=== PATIENT | male | born 1945 | race Caucasian/White ===

== ENCOUNTER 2018-02-10 10:25 | Outpatient (REF) | payer MEDICARE, OTHER, SELFPAY ==
[2018-02-10 12:17] LABS: Anion Gap 6.9 mmol/L (3-11); BUN 23 mg/dL (7-18); CO2 30.1 mmol/L (21.0-32.0); CREATININE 1.48 mg/dL (0.70-1.30); Calcium 8.6 mg/dL (8.5-10.1); Chloride 103 mmol/L (98-107); Estimated GFR 46.46 (mL/min/1.73m2); Glucose 178 mg/dL (70-100); Sodium 140 mmol/L (136-145)
== END 2018-02-10 10:45 ==
LOC: NCHCN 10:25
PROVIDERS: PCP Internal Medicine; Visit Provider Internal Medicine
DX: I10 Essential (primary) hypertension (principal)
CPT/HCPCS: 80048

== ENCOUNTER 2018-02-13 00:57 | Outpatient (CLI) | payer MEDICARE, OTHER, SELFPAY ==
--- NOTE | 2018-02-13 08:00 | DI.CT_ITS ---
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 The study was conducted according to the usual protocol with an intravenous administration of 100 cc's of Omnipaque 350. There is calcific plaque involving the distal common carotid artery, carotid bulb and takeoff of the internal carotid artery bilaterally. On this examination, there is no CT evidence of a significant obstruction. 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 As visualized, the vertebral basilar system is intact and reveals similar findings on today's CTA of the neck. Although there is no definite interval change in the patient's status, a MRA of the brain is suggested for comparison with the prior study which was performed at [facility].
[2018-02-13] MEDS: Omnipaque 350 MG/ML 100 ML BTL IJ (08:58)
== END 2018-02-13 01:17 ==
PROVIDERS: PCP Internal Medicine; Visit Provider Internal Medicine
DX: I72.0 Aneurysm of carotid artery (principal)
CPT/HCPCS: 70498; J3490

== ENCOUNTER 2018-05-05 14:21 | Outpatient (REF) | payer MEDICARE, OTHER, SELFPAY ==
[2018-05-05 22:45] LABS: CREATININE 1.65 mg/dL (0.70-1.30); Estimated GFR 40.98 (mL/min/1.73m2); TSH 3.35 uIU/mL (0.358-3.74)
== END 2018-05-05 14:41 ==
LOC: NCHCN 14:21
PROVIDERS: PCP Internal Medicine; Visit Provider Internal Medicine
DX: E11.65 Type 2 diabetes mellitus with hyperglycemia (principal); I50.9 Heart failure, unspecified; I48.91 Unspecified atrial fibrillation; I25.10 Atherosclerotic heart disease of native coronary artery without angina pectoris; E03.9 Hypothyroidism, unspecified; I71.4 Abdominal aortic aneurysm, without rupture; I72.3 Aneurysm of iliac artery
CPT/HCPCS: 82565; 84443

== ENCOUNTER 2018-08-01 07:24 | Day surgery (SDC) | payer MEDICARE, OTHER, SELFPAY ==
[2018-08-01 07:53] VITALS: BP 144/108; PULSE 70; RESP 16; TEMP 35.1; O2SAT 100
[2018-08-01] MEDS: Lactated Ringers 1,000 ML 80 ML IV (08:06)
[2018-08-01] MEDS: CLINDAMYCIN 600 MG/50 ML BAG 100 MG IVPB (08:57)
[2018-08-01] MEDS: Bupivacaine 0.5% Pres-Free 30 ML VIAL (09:14)
[2018-08-01] MEDS: Lidocaine 1% Pres-Free 5 ML VIAL (09:14)
--- NOTE | 2018-08-01 09:46 | W.PM.DSUDISC ---
Discharge Plan Disposition Patient Disposition: HOME Condition: Good Discharge Details Reason For Visit: surgery Attending Provider: Jarred Trujillo Primary Care Provider: William Herrera Home Meds and New Rx's Prescriptions: No Action atorvastatin [Lipitor] 20 MG tablet 40 mg PO DAILY RF: 0 lisinopril 20 MG tablet 20 mg PO DAILY RF: 0 levothyroxine 50 MCG tablet 50 mcg PO DAILY RF: 0 fenofibrate nanocrystallized 48 MG tablet 48 mg PO BID RF: 0 aspirin 81 MG tablet,delayed release (DR/EC) 81 mg PO DAILY RF: 0 metoprolol tartrate 25 MG tablet 25 mg PO BID Qty: 60 RF: 0 Eliquis 5 mg Tablet 5 mg PO BID RF: 0 Humalog U-100 Insulin 100 UNIT/ML cartridge 20 unit subcut BID RF: 0 Lantus Solostar U-100 Insulin 100 UNIT/1 ML insulin pen 60 units SQ HS RF: 0 warfarin 1 MG tablet 5 mg PO DIRECTED Qty: 0 RF: 0 oseltamivir [Tamiflu] 75 MG capsule 75 mg PO BID Qty: 10 RF: 0 Discharge Instructions Activity:: Activity as Tolerated Remove Dressings/Wound Care:: Do Not Remove Shower/Bathe:: Cover Diet:: Normal Diet Discharge Orders Discharge Orders: Discharge Order (Routine); Ordered 08/01/18 Ordered By: Jarred Trujillo DS: Diagnosis Discharge Diagnosis (1) Hammertoe of right foot: Status: Acute
[2018-08-01 10:18] VITALS: BP 114/59; PULSE 54; RESP 18; TEMP 35.9; O2SAT 94
--- NOTE | 2018-08-01 12:36 | ROE_ITS ---
REPORT OF OPERATIVE PROCEDURE DATE OF PROCEDURE August 01, 2018 PREOPERATIVE DIAGNOSES Hammertoe deformities right fourth and fifth toes with ulcerated soft corn. POSTOPERATIVE DIAGNOSES Hammertoe deformities right fourth and fifth toes with ulcerated soft corn. PROCEDURE Arthroplasty of the right fourth and fifth toes. ANESTHESIA General Anesthesia with local blockade of the right fourth and fifth toes. 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 He is being brought to the Operating Room for arthroplasty o f the fourth and fifth right digits. The potential for pain, scarring, infection, wound dehiscence, o ngoing infection and ulceration discussed, potential for revisional procedures were reviewed. All que stions have been answered and informed consent has been obtained. REPORT OF OPERATION The patient was brought to the Operative Suite, placed in the supine position. Right foot was prepped and draped in the usual sterile podiatric fashion. Anesthesia being obtained, the right foot was exs anguinated. A well-padded ankle tourniquet inflated 250 mmHg. Attention was directed to the dorsal a spect of the fourth and fifth toes. Two converging semielliptical incisions were placed centrally ove r each toe centered over the respective PIPJ. The skin wedges were removed from the fourth toe and th en the fifth toe. Soft tissue mobilization was performed. Transverse tenotomy capsulotomies were then performed at the PIPJ level and the medial and lateral collaterals released, the identical procedure being performed at the fifth digit. The fourth proximal phalangeal head was delivered into the wound and resected with Double Action bone cutting forceps. The identical maneuver performed to the fifth toe. All roughened bony edges were rasped smooth. Copious irrigation was performed. Good bony resec tion was appreciated. The fourth and the fifth toes appeared relaxed. There was no purulence identifi ed. No signs of infection in either toe. The extensor tendons were repaired end-to-end with simple in terrupted sutures of #3-0 Vicryl fourth and fifth toes simultaneously. Then the skin was closed with simple interrupted suture #4-0 Nylon. Betadine soaked gauze was then applied to the plantar and dors al aspect of the fourth toe to act as a splint. Xeroform, gauze, fluff compression dressings then rachel lied to the fifth toe. Tourniquet was released at approximately 24 minutes with vascularity returning immediately to all toes. The patient left the OR with vital signs stable, vascular status intact. Efren guzman will be followed by myself in the office next week. CC: William Herrera M.D.
== END 2018-08-01 10:56 | disposition home or self-care (01) ==
PROVIDERS: PCP Internal Medicine; Visit Provider Podiatrist
PROC: (CPT 28285; principal; 2018-08-01 08:30)
DX: M20.41 Other hammer toe(s) (acquired), right foot (principal); E11.22 Type 2 diabetes mellitus with diabetic chronic kidney disease; E11.42 Type 2 diabetes mellitus with diabetic polyneuropathy; I12.9 Hypertensive chronic kidney disease with stage 1 through stage 4 chronic kidney disease, or unspecified chronic kidney disease; N18.9 Chronic kidney disease, unspecified
CPT/HCPCS: 28285; J1885; J2405

== ENCOUNTER 2018-08-04 09:21 | Inpatient (IN) | payer MEDICARE, OTHER, SELFPAY ==
[2018-08-04 09:24] VITALS: BP 189/73; PULSE 78; RESP 18; TEMP 37.1; O2SAT 97
--- NOTE | 2018-08-04 09:49 | DI.RAD_ITS ---
SYMPTOMS/DIAGNOSIS: H/O RT 4TH AND 5TH TOE ARTHROPLASTY, CELLULITIS, ? OSTEOMYELITIS RIGHT FOOT: Three views. Comparison is 12/02/12. Since the prior examination, the patient has undergone arthroplasty involving the right 4th and 5th proximal interphalangeal joints. There is slight medial angulation of the residual proximal phalanx of the right 5th toe and a dislocation can not be excluded. Correlation with prior post surgical films is recommended. No acute osseous fracture or dislocation is seen. There are mild degenerative changes seen in the right foot. Extensive vascular calcifications are seen in the soft tissues. IMPRESSION: Post surgical changes seen at the 4th and 5th toes as described above. Question of an alignment abnormality involving the right 5th toe as described. Please correlate with patient post surgical images. ADDENDUM: The findings were discussed with Dr. Marsh. The patient is status post arthroplasty of the right 4th and 5th toes. The surgery occurred within the last week. There are no post procedural films available. No findings to suggest osteomyelitis are present. Alignment may be within normal limits post surgically. Continued monitoring of the right foot is recommended.
--- NOTE | 2018-08-04 10:07 | W.ED.GENAD ---
Discharge Plan Disposition Patient Disposition: [facility] INPATIENT Condition: Stable Discharge Details Chief Complaint: Cellulitis Clinical Impression: Cellulitis of right foot, Hx of arthroplasty, History of diabetes mellitus Reason For Visit: R FOOT CELLULITIS, S/P TOE ARHROPLASTY, H/O DIABET Admit Date/Time: 08/04/18 14:07 Admit Provider: William Herrera Attending Provider: William Herrera Primary Care Provider: William Herrera ED Provider: Priscila Marsh Discharge Data Discharge Date/Time-TO BE ENTERED AT DEPARTURE: 08/04/18 13:15 Medical Decision Making 73-year-old male with history of diabetes who is 3 days status post right fourth and fifth toe arthroplasty with Dr. Trujillo who presents with right foot cellulitis. Patient is unsure of how long due to bandage on foot, but admits to chills yesterday. Fever per Dr. Trujillo in office today. Sent by Dr. Montaño today for admission for IV antibiotics. Vitals stable on arrival. Afebrile. Patient appears nontoxic. He has right foot cellulitis on the dorsal mid and distal foot with ecchymosis and cellulitis on the right fourth and fifth toes. Right DP/PT pulses intact. Labs and imaging ordered on arrival and note a white blood cell count of 10, lactate of 1.3. X-ray noted postsurgical changes but no osteomyelitis. 1145 --discussed with Dr. Trujillo -would like IV Vancomycin and cefepime. 1155 --d/w hospitalist - accepts pt for admission. Medical Records Medical records reviewed: Yes I reviewed the patient's medical records. Imaging Data Radiologic Study: Radiologist's impression: RIGHT FOOT: Three views. Comparison is 12/02/12. Since the prior examination, the patient has undergone arthroplasty involving the right 4th and 5th proximal interphalangeal joints. There is slight medial angulation of the residual proximal phalanx of the right 5th toe and a dislocation can not be excluded. Correlation with prior post surgical films is recommended. No acute osseous fracture or dislocation is seen. There are mild degenerative changes seen in the right foot. Extensive vascular calcifications are seen in the soft tissues. IMPRESSION: Post surgical changes seen at the 4th and 5th toes as described above. Question of an alignment abnormality involving the right 5th toe as described. Please correlate with patient post surgical images. ADDENDUM: The findings were discussed with Dr. Marsh. The patient is status post arthroplasty of the right 4th and 5th toes. The surgery occurred within the last week. There are no post procedural films available. No findings to suggest osteomyelitis are present. Alignment may be within normal limits post surgically. Continued monitoring of the right foot is recommended. Lab Data Lab results reviewed: Yes I reviewed the patient's lab results. 08/04/18 10:30 Blood Blood Culture - Pending 08/04/18 09:50 Blood Blood Culture - Pending Laboratory Tests Range/Units 08/04/18 08/04/18 08/04/18 09:50 09:50 09:50 WBC (4.4-10.8) k/cumm 10.46 RBC (4.50-6.00) m/cumm 4.19 L Hgb (13.5-17.5) g/dL 12.0 L Hct (40.0-50.0) % 34.8 L MCV (80-95) fL 83.1 MCH (27.0-33.0) pg 28.6 MCHC (32.0-36.0) g/dL 34.5 RDW (11.8-14.1) % 14.1 Plt Count (130-400) x1000/uL 116 L MPV (8.0-11.0) fL 10.3 Immature Gran % 0.3 Neutrophils % 75.4 Lymphocytes % 12.7 Monocytes % 10.3 Eosinophils % 1.1 Basophils % 0.2 Absolute Neutrophils (1.2-6.7) k/cumm 7.89 H Absolute Lymphocytes (1.2-3.4) k/cumm 1.33 Absolute Monocytes (0.11-0.7) k/cumm 1.08 H Absolute Eosinophils (0.0-0.7) k/cumm 0.11 Absolute Basophils (0.0-0.2) k/cumm 0.02 Sodium (136-145) mmol/L 136 Potassium (3.5-5.1) mmol/L 4.4 Chloride (98-107) mmol/L 100 Carbon Dioxide (21.0-32.0) mmol/L 26.0 Anion Gap (3-11) mmol/L 10.0 BUN (7-18) mg/dL 21 H Creatinine (0.70-1.30) mg/dL 1.50 H Estimated GFR/1.73 m2 (mL/min/1.73m2) 45.75 Glucose (70-100) mg/dL 194 H Lactate (0.6-1.4) mmol/l 1.3 Calcium (8.5-10.1) mg/dL 8.6 Total Bilirubin (0.2-1.0) mg/dL 1.0 AST (15-37) U/L 20 ALT (12-78) U/L 19 Alkaline Phosphatase (46-116) U/L 115 Total Protein (6.4-8.2) g/dL 7.2 Albumin (3.4-5.0) g/dL 3.2 L HPI General Mode of arrival: ambulatory. Date/Time Provider Initiated Documentation: 08/04/18 09:29. Limitations to Documentation: no limitations. Information obtained by: patient. HPI Narrative: Patient is a 73-year-old male with a history of diabetes, atrial fibrillation, CABG, CAD, peripheral vascular disease who presents for admission for IV antibiotics for right foot cellulitis. Patient is 3 days status post a right fourth and fifth toe arthroplasty with Dr. Trujillo 3 days ago. Patient was seen by Dr. Trujillo today for re-evaluation and he sent patient here today to the ER for IV antibiotics and admission. Per nursing report in the ED from Dr. Trujillo, pt had a fever in the office with him today. Pt c/o shaking chills at home yesterday. Patient states he has had the dressing on since his surgery on Saturday and is unsure of how long he has had the redness. He states his sugars have been running in the 200s. Related Data Home Medications Medication Instructions Recorded Confirmed aspirin 81 mg PO DAILY 11/08/12 08/04/18 atorvastatin [Lipitor] 40 mg PO DAILY 11/08/12 08/04/18 levothyroxine 50 mcg PO DAILY 11/08/12 08/04/18 metoprolol tartrate 25 mg PO BID #60 tab 01/02/13 08/04/18 oseltamivir [Tamiflu] 75 mg PO BID #10 cap 06/11/16 Humalog U-100 Insulin 20 unit SUBCUT BID 07/29/18 08/04/18 Lantus Solostar U-100 Insulin 60 units SQ HS 07/29/18 08/04/18 apixaban [Eliquis] 5 mg PO BID 07/29/18 08/04/18 ibuprofen 600 mg PO QID 08/04/18 08/04/18 lisinopril 30 mg PO DAILY 08/04/18 08/04/18 Previous Rx's Medication Instructions Recorded metoprolol tartrate 25 mg PO BID #60 tab 01/02/13 oseltamivir [Tamiflu] 75 mg PO BID #10 cap 06/11/16 Allergies Allergy/AdvReac Type Severity Reaction Status Date / Time amoxicillin trihydrate Allergy Intermediate Hives Unverified 08/01/18 07:45 [From Augmentin] simvastatin Allergy Unknown Unverified 08/01/18 07:45 [From Vytorin 10-10] General Stated Complaint: Cellulitis MELISSA: 3 Review of Systems Review of Systems All systems reviewed & are unremarkable except as noted in HPI and below Constitutional Reports as per HPI, Reports chills and Denies fever(s) Eyes Denies blurry vision ENT Denies dizziness, Denies sore throat and Denies throat swelling Cardiovascular Denies chest pain and Denies dyspnea Respiratory Denies cough and Denies dyspnea Gastrointestinal Denies abdominal pain, Denies diarrhea and Denies vomiting Genitourinary Denies hematuria and Denies dysuria Musculoskeletal Denies back pain and Denies numbness Integumentary/Breasts Reports lesions and Denies rash Neurologic Denies dizziness, Denies focal weakness and Denies numbness Allergic/Immunologic Denies throat swelling [facility] Medical History Hyperlipemia (Acute) Atrial fibrillation (Chronic) Coronary artery disease (Chronic) Diabetes (Chronic) Hypothyroidism (Chronic) Peripheral vascular disease (Chronic) Surgical History Appendectomy Colonoscopy - [facility] (05/25/16) Coronary Artery Bypass [place] (CABG) Social History Smoking and Tabacco status: Former Tobacco Use alcohol intake: current alcohol intake frequency: 0-2 drinks per day substance use type: does not use Exam Const General: cooperative and no acute distress HENMT Head: normal to inspection Face and sinus: normal facial exam Eyes General: appearance normal, both eyes and all related structures EOM: EOM intact bilaterally Neck Neck: normal visual inspection and No submandibular swelling Resp Effort & Inspection: normal respiratory effort and able to speak in complete sentences Auscultation: clear to auscultation bilaterally Cardio Rate: regular rate Rhythm: regular rhythm GI Inspection: normal to inspection and obesity Palpation: soft, not firm, not rigid and nontender Auscultation: normal bowel sounds Neuro General: alert, awake and oriented x3 Cognition: normal cognition Speech: speech normal Motor: muscle tone normal throughout Sensory Exam: no sensory deficits noted Extrem Other: Right foot: Mild edema and moderate erythema noted on dorsal mid and distal foot with extension into right fourth and fifth toes with surrounding ecchymosis to toes. Sutures noted in place to R 4th/5th toes. Faint palpable right DP/PT pulses. Right ankle normal to inspection. Psych Appearance: grossly normal Mental Status: mental status grossly normal Speech and Movement: speech and movement normal Affect: normal affect Course Vital Signs Temperature 98.8 F 08/04/18 09:24 Pulse 78 08/04/18 09:24 Respiratory Rate 18 08/04/18 09:24 Blood Pressure 189/73 H 08/04/18 09:24 Pulse Oximetry 97 08/04/18 09:24 Temperature 98.8 F 08/04/18 09:24 Temperature Source Skin 08/04/18 09:24 Pulse 78 08/04/18 09:24 Respiratory Rate 18 08/04/18 09:24 Respiratory Effort 08/04/18 09:33 Blood Pressure 189/73 H 08/04/18 09:24 Blood Pressure Position Sitting 08/04/18 09:24 Pulse Oximetry 97 08/04/18 09:24 Oxygen Delivery Method Room Air 08/04/18 09:24 Oxygen Flow Rate 0 08/04/18 09:24 Pain Level 0 08/04/18 09:24 Lab/Test Results Lab/Test Results: 08/04/18 09:29 Blood Blood Culture - Pending 08/04/18 09:29 Blood Blood Culture - Pending
[2018-08-04 10:20] LABS: Abs Immature Grans 0.03 k/cumm (0.0-0.09); Absolute Basophil Count 0.02 k/cumm (0.0-0.2); Absolute Eosinophil Count 0.11 k/cumm (0.0-0.7); Absolute Lymphocyte Count 1.33 k/cumm (1.2-3.4); Absolute Monocyte Count 1.08 k/cumm (0.11-0.7); Absolute Neutrophil Count 7.89 k/cumm (1.2-6.7); Basophils % 0.2; Eosinophils % 1.1; HCT 34.8 % (40.0-50.0); Immature Grans % 0.3; Lymphocytes % 12.7; Mean Corp. HGB Concentration 34.5 g/dL (32.0-36.0); Mean Corpuscular Hemoglobin 28.6 pg (27.0-33.0); Mean Corpuscular Volume 83.1 fL (80-95); Mean Platelet Volume 10.3 fL (8.0-11.0); Monocytes % 10.3; Neutrophils % 75.4; Platelet Count 116 x1000/uL (130-400); RBC 4.19 m/cumm (4.50-6.00); RBC Distribution Width 14.1 % (11.8-14.1); White Blood Cell Count 10.46 k/cumm (4.4-10.8)
[2018-08-04 10:25] LABS: Lactate-non-spesis 1.3 mmol/l (0.6-1.4)
[2018-08-04] MEDS: Normal Saline 1,000 ML 125 ML IV ×3 (10:50→21:54)
[2018-08-04 11:26] LABS: ALT 19 U/L (12-78); AST 20 U/L (15-37); Albumin 3.2 g/dL (3.4-5.0); Alkaline Phosphatase 115 U/L (46-116); BUN 21 mg/dL (7-18); Calcium 8.6 mg/dL (8.5-10.1); Chloride 100 mmol/L (98-107); Estimated GFR 45.75 (mL/min/1.73m2); Glucose 194 mg/dL (70-100); Potassium 4.4 mmol/L (3.5-5.1); Sodium 136 mmol/L (136-145); Total Protein 7.2 g/dL (6.4-8.2)
[2018-08-04] MEDS: CEFEPIME 2 GM in Normal Saline 100 ML IVPB (11:45)
[2018-08-04 11:56] VITALS: BP 122/63; PULSE 78; RESP 18; TEMP 37.4; O2SAT 95
[2018-08-04] MEDS: VANCOMYCIN 1,500 MG in Normal Saline 250 ML 250 MG IV (12:10)
[2018-08-04 13:15] VITALS: BP 152/88; PULSE 77; RESP 20; TEMP 36.5; O2SAT 95
[2018-08-04 13:21] VITALS: BP 122/63; PULSE 78; RESP 18; TEMP 37.4; O2SAT 95
--- NOTE | 2018-08-04 14:31 | W.PM.HP.N ---
Date of service: 08/04/18 Time of Service: 14:42 Assessment and Plan (1) Cellulitis of right foot: Current visit: Yes Status: Acute Postop wound infection with systemic symptoms but minimal signs. Wound care per Dr. Trujillo. Superficial cultures will not be helpful. Blood cultures have been drawn. Empiric treatment with vancomycin and cefepime renally dosed. Monitor clinical response. 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 Circulation in his foot seems to be adequate for infection healing. (3) Coronary arteriosclerosis: Current visit: No Status: Chronic No anginal symptoms on secondary preventive medications, continue outpatient regimen. (4) Diabetes mellitus type 2: Current visit: Yes Status: Chronic Not well controlled, dietary compliance a problem and he does not like to take meal associated aspart insulin very often. He has not had problems with hypoglycemia. We will continue his outpatient Lantus, use 10 units rather than 20 units of aspart plus moderate sensitivity correction before meals as he will be on an reinforced diet and will monitor blood sugar response. (5) Hypothyroidism: Current visit: Yes Status: Chronic TSH in April with an population normal on his current dose, no changes planned. (6) Chronic kidney disease stage 1: Current visit: Yes Status: Chronic BUN and creatinine at baseline. Renally dose medications. (7) Atrial fibrillation: Current visit: Yes Status: Chronic Controlled ventricular response. Anticoagulated with apixaban. No changes planned. (8) Left heart failure with preserved LV function: Current visit: Yes Status: Chronic Compensated on outpatient medications, slight increase in edema. Continue his current dose of furosemide with low threshold to increase this if weight or edema go up. (9) Central retinal artery occlusion, right eye: Current visit: Yes Status: Chronic Functional vision right eye. Continue his outpatient eyedrops. History of Present Illness Chief Complaint: Increasing right foot pain and swelling Narrative: Mr. Stapleton is a 73-year-old man with diabetes that has not been well controlled, presenting to the emergency room from Dr. Simmons office because of right foot cellulitis. He had surgery last Saturday on his fourth and fifth toes because of deformities causing chronic skin ulcerations. Over the weekend he noted some increased swelling of his right leg and increasing discomfort of his foot in the past 24 hours. He was seen for routine postop follow-up today where it was noted to have increased erythema on the dorsum of his right foot and toes with some dusky discoloration of his right fifth toe. He was sent to the emergency room for admission following blood cultures and administration of vancomycin and cefepime. He is being admitted now for continued antibiotic therapy and monitoring of his postop cellulitis. Prior to his foot surgery he was stable with regard to his cardiovascular status. His diabetes is not well controlled with home blood sugars typically pushing 200 and his last hemoglobin A1c in April of over 8. He does not like to take a short acting insulin more than once a day. He does not follow a optimal diet and is quite sedentary. He has not had any claudication symptoms at his current level of activity nor any anginal chest pain. He reports chronic orthopnea but has not had increased ankle swelling until today, right leg only. No palpitations. He has had a little bit of bleeding from the wound but no excessive bleeding on his chronic anticoagulation. In addition to the medications listed below he is also on at least 2 eyedrops?brimonidine, timolol and possibly Pred Forte, we need to confirm. Review of Systems Review of Systems He has had chills but no measured fever. No nausea. No anginal chest pain. No cough. He has had some wheezing when he lies down but it goes away when he sits up. Sleeps in a recliner out of comfort and perhaps breathing? Not known to have sleep apnea. No palpitations. No abdominal pain. Tendency towards constipation but no blood in stool. No dysuria urgency or frequency. Pain in the dorsum of the right foot as per HPI. No focal weakness numbness or tingling. He has no significant vision in his right eye. No recent falls. No headache. Weight has been stable. [facility] Medical History Hyperlipemia (Acute) Atrial fibrillation (Chronic) Coronary artery disease (Chronic) Diabetes (Chronic) Hypothyroidism (Chronic) Peripheral vascular disease (Chronic) Surgical History Appendectomy Colonoscopy - [facility] [place] (05/25/16) Coronary Artery Bypass [place] (CABG) Social History Smoking and Tabacco status: Former Tobacco Use alcohol intake: current alcohol intake frequency: 0-2 drinks per day substance use type: does not use Meds Home Medications Medication Instructions Recorded Confirmed Type aspirin 81 mg PO DAILY 11/08/12 08/04/18 History atorvastatin [Lipitor] 40 mg PO DAILY 11/08/12 08/04/18 History levothyroxine 50 mcg PO DAILY 11/08/12 08/04/18 History metoprolol tartrate 25 mg PO BID #60 tab 01/02/13 08/04/18 Rx oseltamivir [Tamiflu] 75 mg PO BID #10 cap 06/11/16 Rx Humalog U-100 Insulin 20 unit SUBCUT BID 07/29/18 08/04/18 History Lantus Solostar U-100 Insulin 60 units SQ HS 07/29/18 08/04/18 History apixaban [Eliquis] 5 mg PO BID 07/29/18 08/04/18 History ibuprofen 600 mg PO QID 08/04/18 08/04/18 History lisinopril 30 mg PO DAILY 08/04/18 08/04/18 History Allergies Allergy/AdvReac Type Severity Reaction Status Date / Time amoxicillin trihydrate Allergy Intermediate Hives Unverified 08/01/18 07:45 [From Augmentin] simvastatin Allergy Unknown Unverified 08/01/18 07:45 [From Vytorin 10-10] Exam Narrative Exam Narrative: In bed, awake alert and in no apparent distress. Pupils are 2 mm and equal. Extraocular movements are normal. He has dentures up and down with no oral lesions. Cannot see neck veins because of neck size. No carotid bruits. Lungs have intermittent very soft late expiratory wheeze at the bases, no crackles or rub. Irregularly irregular heart rhythm without S3-S4 or murmur. Abdomen obese soft nontender. No masses appreciated. He has 1+ edema left leg 2-3+ on the right with chronic pigmentary changes on his shins. His right fourth and fifth toe have intact suture lines on the dorsum of the toes with erythema and swelling and bruising of the right fifth toe. His feet are warm. There is erythema extending to just before the flexural crease of the dorsum of his right foot at the ankle. Mild induration mild warmth minimal tenderness. Difficult to feel a pulse in the right foot but his foot is warm. Absent DTRs at the knees 1+ at the elbows. He has antigravity power present in all extremities. Oriented x4. X-ray of the right foot shows his recent postsurgical changes and calcifications of the vasculature in the right foot. Results Labs : 08/04/18 09:50 08/04/18 09:50 Laboratory Results - last 24 hr 08/04/18 08/04/18 08/04/18 09:50 09:50 09:50 WBC 10.46 RBC 4.19 L Hgb 12.0 L Hct 34.8 L MCV 83.1 MCH 28.6 MCHC 34.5 RDW 14.1 Plt Count 116 L MPV 10.3 Immature Gran % 0.3 Neutrophils % 75.4 Lymphocytes % 12.7 Monocytes % 10.3 Eosinophils % 1.1 Basophils % 0.2 Absolute Neutrophils 7.89 H Absolute Lymphocytes 1.33 Absolute Monocytes 1.08 H Absolute Eosinophils 0.11 Absolute Basophils 0.02 Sodium 136 Potassium 4.4 Chloride 100 Carbon Dioxide 26.0 Anion Gap 10.0 BUN 21 H Creatinine 1.50 H Estimated GFR/1.73 m2 45.75 Glucose 194 H Lactate 1.3 Calcium 8.6 Total Bilirubin 1.0 AST 20 ALT 19 Alkaline Phosphatase 115 Total Protein 7.2 Albumin 3.2 L Last Vital Signs Temp 37.4 C 08/04/18 13:21 Pulse 78 08/04/18 13:21 Resp 18 08/04/18 13:21 BP 122/63 08/04/18 13:21 Pulse Ox 95 08/04/18 13:21
[2018-08-04 16:18] VITALS: BP 114/57; PULSE 76; RESP 19; TEMP 37.1; O2SAT 96
[2018-08-04] MEDS: HYDROcodone 5/Acetaminophen 325 TAB PO (16:35)
[2018-08-04] MEDS: Insulin Aspart 300 UNITS/3 ML PEN SC (17:12)
[2018-08-04] MEDS: Insulin Aspart 300 UNITS/3 ML PEN 10 UNITS SC (17:12)
--- NOTE | 2018-08-04 18:12 | POCOE_ITS ---
Date of service: 08/04/18 Time of Service: 18:03 History of Present Illness Chief Complaint: Postop infection right fourth fifth toes with cellulitis Narrative: Nick, 73-year-old white male, with diabetes and peripheral vascular disease underwent arthroplasties of the right fourth and fifth digits on 08/01/2018. He has been suffering with ulceration between the fourth and fifth toes and chronic pain. The ulceration showed signs of resolving and surgical intervention was employed to prevent recurrence of wounds and to correct the digital deformities, hammertoes which predisposed him to the ulcerations. Surgical procedures went uneventful but unfortunately over the weekend he developed pain and a general feeling of achiness, he describes fever and chills verbally when he was in the office this morning. When the dressings were removed the fourth and fifth toes were grossly erythematous with cellulitis noted extending onto the dorsum of the foot. The fifth toe appeared a little dusky with delayed capillary return. There was no purulence coming from the suture lines. Patient was sent to the emergency department for purpose of facilitating a dmission. Blood cultures and labs were performed. He is now seen on the floor in room 217 where he is resting comfortably. [facility] Medical History Abdominal aortic aneurysm (Chronic) Peripheral arterial disease (Chronic) Central retinal artery occlusion, right eye (Chronic) Left heart failure with preserved LV function (Chronic) Chronic kidney disease stage 1 (Chronic) Atrial fibrillation (Chronic 12/28/12) Hypothyroidism (Chronic) Hyperlipemia (Acute) Atrial fibrillation (Chronic) Coronary artery disease (Chronic) Diabetes (Chronic) Hypothyroidism (Chronic) Peripheral vascular disease (Chronic) Surgical History Appendectomy Colonoscopy - MAC (05/25/16) Coronary Artery Bypass G[place] (CABG) Social History Smoking and Tabacco status: Former Tobacco Use alcohol intake: current alcohol intake frequency: 0-2 drinks per day substance use type: does not use Exam Narrative Exam Narrative: Patient is seen at bedside he is awake alert, conversive and in fairly good spirits. His is present. His feet are warm to the touch, no peripheral edema or is noted. Calves are soft to palpation. Pulses are diminished but palpable. Capillary return is sluggish on the fifth toe on the fourth second to the fourth digit all to the right foot Suture line is intact without drainage. The digits are rectus Vitals BP 114/57 pulse 76 respiration 19 temp 37.1 O2 sat room air is 96% WBCs are normal at 10.46 RBCs are low at 4.19 hemoglobin is 12.0 hematocrit 348, BUNs 21 creatinine 1.5. Impression 72 hours status post arthroplasty right fourth and fifth digit digits with postop infection there is no purulence to culture at this time and superficial swabbing of the suture line would be unreliable Continue with vancomycin renally adjusted currently at 1 g every 12 hour, cefepime 2 g IV every 12 hours Appreciate the hospitalist management will continue to follow. Results Last Vital Signs Temp 37.1 C 08/04/18 16:18 Pulse 76 08/04/18 16:18 Resp 19 08/04/18 16:18 BP 114/57 L 08/04/18 16:18 Pulse Ox 96 08/04/18 16:18 Labs : 08/04/18 09:50 08/04/18 09:50 Laboratory Results - last 24 hr 08/04/18 08/04/18 08/04/18 09:50 09:50 09:50 WBC 10.46 RBC 4.19 L Hgb 12.0 L Hct 34.8 L MCV 83.1 MCH 28.6 MCHC 34.5 RDW 14.1 Plt Count 116 L MPV 10.3 Immature Gran % 0.3 Neutrophils % 75.4 Lymphocytes % 12.7 Monocytes % 10.3 Eosinophils % 1.1 Basophils % 0.2 Absolute Neutrophils 7.89 H Absolute Lymphocytes 1.33 Absolute Monocytes 1.08 H Absolute Eosinophils 0.11 Absolute Basophils 0.02 Sodium 136 Potassium 4.4 Chloride 100 Carbon Dioxide 26.0 Anion Gap 10.0 BUN 21 H Creatinine 1.50 H Estimated GFR/1.73 m2 45.75 Glucose 194 H Lactate 1.3 Calcium 8.6 Total Bilirubin 1.0 AST 20 ALT 19 Alkaline Phosphatase 115 Total Protein 7.2 Albumin 3.2 L
[2018-08-04] MEDS: Metoprolol 25 MG TAB PO (21:33)
[2018-08-04] MEDS: Apixaban 5 MG TAB PO (21:33)
[2018-08-04 21:37] VITALS: BP 135/67; PULSE 72; RESP 16; TEMP 37.3; O2SAT 96
[2018-08-04] MEDS: Timolol 0.5% 5 ML BTL OD (21:42)
[2018-08-04] MEDS: Insulin Glargine 300 UNITS/3 ML PEN 60 UNITS SC (21:48)
[2018-08-04] MEDS: Refresh PLUS Eye Drops 0.4ml OS (21:50)
[2018-08-05] VITALS (7 sets, daily range): BP systolic 138–178; BP diastolic 63–89; PULSE 69–91; RESP 19–22; TEMP 36.6–38.3; O2SAT 96–99
[2018-08-05] MEDS: CEFEPIME 2 GM in Normal Saline 100 ML IVPB ×3 (00:10→23:53)
[2018-08-05] MEDS: HYDROcodone 5/Acetaminophen 325 TAB PO ×2 (00:15→09:53)
[2018-08-05 07:10] LABS: HCT 34.6 % (40.0-50.0); HGB 11.5 g/dL (13.5-17.5); Mean Corp. HGB Concentration 33.2 g/dL (32.0-36.0); Mean Corpuscular Hemoglobin 27.8 pg (27.0-33.0); Mean Corpuscular Volume 83.8 fL (80-95); Mean Platelet Volume 10.4 fL (8.0-11.0); Platelet Count 123 x1000/uL (130-400); RBC 4.13 m/cumm (4.50-6.00); RBC Distribution Width 14.2 % (11.8-14.1); White Blood Cell Count 9.07 k/cumm (4.4-10.8)
[2018-08-05 07:29] LABS: Hemoglobin A1C 8.4 % (4.5-6.2)
[2018-08-05 07:35] LABS: Anion Gap 7.5 mmol/L (3-11); BUN 20 mg/dL (7-18); CO2 27.5 mmol/L (21.0-32.0); CREATININE 1.47 mg/dL (0.70-1.30); Calcium 8.2 mg/dL (8.5-10.1); Chloride 102 mmol/L (98-107); Estimated GFR 46.83 (mL/min/1.73m2); Glucose 197 mg/dL (70-100); Potassium 4.8 mmol/L (3.5-5.1); Sodium 137 mmol/L (136-145)
[2018-08-05] MEDS: Levothyroxine 50 MCG TAB PO (07:35)
[2018-08-05] MEDS: Normal Saline 1,000 ML 125 ML IV (08:09)
[2018-08-05] MEDS: Normal Saline Flush 10 ML SYR IVP ×2 (08:10→23:51)
[2018-08-05] MEDS: Insulin Aspart 300 UNITS/3 ML PEN SC ×2 (08:11→12:15)
[2018-08-05] MEDS: Insulin Aspart 300 UNITS/3 ML PEN 10 UNITS SC ×2 (08:11→12:14)
[2018-08-05] MEDS: Atorvastatin 20 MG TAB 40 MG PO (08:13)
[2018-08-05] MEDS: Aspirin E.C. 81 MG TABEC PO (08:13)
[2018-08-05] MEDS: Lisinopril 10 MG TAB 30 MG PO (08:13)
[2018-08-05] MEDS: Metoprolol 25 MG TAB PO ×2 (08:13→19:54)
[2018-08-05] MEDS: Apixaban 5 MG TAB PO ×2 (08:13→19:54)
[2018-08-05] MEDS: Timolol 0.5% 5 ML BTL OD ×2 (08:14→19:54)
--- NOTE | 2018-08-05 09:18 | PDOC.CMIN ---
- If Service Date Differs Date of service: 08/05/18 Time of Service: 09:18 Care Management Initial Assess REASON FOR HOSPITALIZATION:: R foot cellulitis post arthroplasties of the right 4th and 5th digits on 08/01/18 PAST MEDICAL HISTORY/PAST SURGICAL HISTORY:: Afib, CABG, L sided heart failure, DM, CKD, hypothyroid, tripple A. PREVIOUS FUNCTIONAL STATUS/SOCIAL/FAMILY SUPPORTS:: Pt is a retired over the road building contractor. He lives with his spouse of 54 years Jessie. There children are grown He is indepdent with transportation, and self care. The couple live alone in a trailer and are supportive of each other. They both drive and have no ambulatory aids. CURRENT FUNCTIONAL STATUS:: Nick is having some shortness of breath during CM visit. He feels like he cannot get enough air in. He is being given 20 mg of lasix during assessment by primary nurse. IV fluids have been discountinued. CM reviewed concerns of [facility] primary nurse and CCRN. ADVANCE DIRECTIVES:: On file spouse Jessie Has patient been provided with information about the portal?: Yes Did the patient sign up for the portal?: No CODE STATUS:: Full Code INSURANCE COVERAGE / FINANCIAL ISSUES:: Medicare and CURRENT HOME/COMMUNITY SERVICES/EQUIPMENT:: None PRIMARY CARE PHYSICIAN:: POTENTIAL DISCHARGE NEEDS:: Follow up appointment with Dr. Herrera and Dr. Trujillo PATIENT/FAMILY EDUCATION NEEDS:: Discharge education, limitations and follow up plan of care. ANTICIPATED BARRIERS TO DISCHARGE:: Imparied healing r/t history of DM, PVD. TRANSPORTATION:: Via private car with spouse at time of discharge. PLAN:: Nick is receiving IV antibiotics and continued wound management. Podiatry and hospitalist managing patient. Nick will be discharged home when medically ready. CM to continue to provide support to pt ongoing discharge planning and disposition.
--- NOTE | 2018-08-05 12:23 | PHARADMIT ---
Addendum entered by Zuleima Alex 08/10/18 14:10: Pharmacy Note Subjective pt looked better to MD yesterday Objective bp 175/93, wt down to 131kg, Na 135, Fs 188, trough vanco 15.7 Assessment no changes recommended for vancomycin dosing Plan Md to call ID after Wound Culture results Addendum entered by Mitchell Winchester III 08/08/18 12:15: Pharmacy Note Subjective Post-op toe amputation (gangrenous). would like [facility] [place]. Objective VS-OK Na- 136 K+3.7 SCr- 1.26 H&H-10.2/30.5 Plts-128 wGT- 131.9 kg Assessment Vancomycin continues. Cefepime dc'd. Apixaban re-started Trough 15.4 yesterday. Plan Watch for wound cultures to narrow ABX therapy Addendum entered by Mitchell Winchester III 08/07/18 09:33: Pharmacy Note Subjective Going to OR with for Toe amputation at noon today. Objective BP-176/86 No Labs FSBS-98 BM today Assessment Cefepime, Vancomycin continue, watch for Apixban re-start after surgery Trough will be delayed due to noon surgery. Plan would like patient to transfer to [facility] vascular surgery post-op, if possible. Original Note: Addendum entered by Masha Bentley 08/06/18 16:15: Pharmacy Note Subjective improving per morning report; no significant changes in the wounds per Dr. Trujillo Objective VS-okay SCr-1.35(down) FSBG-150 Assessment -vanco trough came back low but still not at steady state, kinetics suggested keeping same dose to target a trough of 15.3. I reordered trough for tomorrow since should be at steady state -vanco and cefepime continue (day 3) -blood cultures no growth at 48 hours -apixaban set to resume tomorrow evening Plan watch for vanco trough, adjust dosing as needed Original Note: Admission Pharmacy Clinical Review Right FOOT CELLULITIS, S/P- TOE ARTHROPLASTY, H/O DIABETES Code Status Full Code Current Weight Wgt- 134.9 kg Renally Cleared and Narrow Therapeutic Index Meds CrCl~ 52 mL/min Meds-OK QTc Value / Action Taken none current BP Control, Fever BP- 178/89 Tmax- 38.3C Electrolytes reviewed Na-137 K+4.8 DVT Prophylaxis Apixaban, ASA-ec Opiate Usage / Scheduled Bowel Regimen Ordered Yes No Plt/SCr for Heparin / Enoxaparin Plts-123 SCr-1.47 INR for Warfarin NA H/H stable, WBC/Bands H&H- 11.5/34.6 WBC-9.07 Antibiotic appropriateness Cefepime, Vancomycin Cultures and Sensitivities Blood_pending Surgical ABX d/c within 24 hr NA DM control / Insulin Dosing BG-197 HgA1c- 8.4 Aspart, Glargine Heart Failure (Check EF%) (AGUSTINA's, B-Block, Diuretics) Lisinopril, Lopressor IV to PO Switch No Home Meds Reviewed Yes Home Meds Not Ordered Ibuprofen, Comments
--- NOTE | 2018-08-05 18:05 | W.PM.PROGNOT ---
Date of Service Date of service: 08/05/18 Time of Service: 18:05 Assessment and Plan (1) Cellulitis of right foot: Current visit: Yes Status: Acute The cellulitis appears to be responding to IV antibiotics. Continue empiric antibiotic therapy. (2) Left heart failure with preserved LV function: Current visit: Yes Status: Chronic No evidence of overt heart failure at this time. IV fluids was stopped because of the dyspnea. He appears to be taking p.o. well. (3) Chronic kidney disease stage 1: Current visit: Yes Status: Chronic Creatinine 1.47. Urinary output is stable. Continue to monitor. (4) Sepsis: Current visit: Yes Status: Acute Concern for sepsis given the infection with high fever, chills, and postop wound infection. Continue empiric antibiotic therapy. (5) Discharge planning issues: Current visit: Yes Status: Acute Continue to monitor in acute care status. Patient is a full code. Subjective Interval history since last seen: Patient was admitted yesterday with right foot cellulitis and question sepsis syndrome. He was empirically treated with vancomycin and cefepime. He did well overnight but this morning spiked a fever to 38.3. His came down with acetaminophen. He overall felt well other than some dyspnea that came on with coughing or lying flat. IV fluids were stopped and his dyspnea improved. He has not been having chills or rigors. Exam Narrative Exam Narrative: On exam he is sitting comfortably in bed, fully conversant and oriented. His is in the room with him and was not alarmed by his condition. His lung exam sounded clear on the right and left no rales were heard. His heart sounds were regular no significant murmur abdomen is quite markedly obese but nontender. Exam of the right leg was able to pull the dressing down, the toes were warm and appear to be well perfused. There was a little duskiness to the fifth toe distally but it was not ischemic appearing. I did not fully take down the dressing to expect the surgical wound. There was some erythema and warmth around the distal ray of the third and fourth toes. This was within the line of demarcation. There was otherwise no ascending lymphangitis. Objective Objective Clinical Data: Abnormal lab results 08/05/18 08/05/18 08/05/18 Range/Units 06:45 06:45 06:45 RBC 4.13 L (4.50-6.00) m/cumm Hgb 11.5 L (13.5-17.5) g/dL Hct 34.6 L (40.0-50.0) % RDW 14.2 H (11.8-14.1) % Plt Count 123 L (130-400) x1000/uL BUN 20 H (7-18) mg/dL Creatinine 1.47 H (0.70-1.30) mg/dL Glucose 197 H (70-100) mg/dL Hemoglobin A1c 8.4 H (4.5-6.2) % Calcium 8.2 L (8.5-10.1) mg/dL Vital Signs Temperature 37.1 C 08/05/18 15:33 Temperature Source Tympanic 08/05/18 15:33 Pulse 82 08/05/18 15:33 Pulse Rhythm Regular 08/05/18 08:18 Respiratory Rate 20 08/05/18 15:33 Respiratory Effort Non-Labored 08/05/18 08:18 Respiratory Depth Normal 08/05/18 08:18 Respiratory Pattern Normal 08/05/18 08:18 Blood Pressure 162/79 H 08/05/18 15:33 Blood Pressure Position Sitting 08/04/18 09:24 Pulse Oximetry 99 08/05/18 15:33 Oxygen Delivery Method Room Air 08/05/18 15:33 Oxygen Flow Rate 0 08/05/18 15:33 Pain Level 6 08/05/18 09:53 Comment 08/05/18 10:00 Intake & Output 08/04/18 08/05/18 08/05/18 23:59 11:59 23:59 Intake Total 2763.334 / 2763.334 2558.75 / 2798.75 240 / 2798.75 Output Total 200 / 200 600 / 600 Balance 2563.334 / 2563.334 1958.75 / 2198.75 240 / 2198.75 Weight 127.006 kg 134.9 kg Intake: IV 1733.334 / 4889.410 0897.75 / 1468.75 Oral 1030 / 1030 1090 / 1330 240 / 1330 Output: Urine 200 / 200 600 / 600 Other: Urine Color Yellow Yellow Urine Appearance Clear Clear Urine Odor None Comment Void x1 in the urinal. Voiding Methods Urinal Urinal Laboratory Results WBC 9.07 k/cumm (4.4-10.8) 08/05/18 06:45 RBC 4.13 m/cumm (4.50-6.00) L 08/05/18 06:45 Hgb 11.5 g/dL (13.5-17.5) L 08/05/18 06:45 Hct 34.6 % (40.0-50.0) L 08/05/18 06:45 MCV 83.8 fL (80-95) 08/05/18 06:45 MCH 27.8 pg (27.0-33.0) 08/05/18 06:45 MCHC 33.2 g/dL (32.0-36.0) 08/05/18 06:45 RDW 14.2 % (11.8-14.1) H 08/05/18 06:45 Plt Count 123 x1000/uL (130-400) L 08/05/18 06:45 MPV 10.4 fL (8.0-11.0) 08/05/18 06:45 Immature Gran % 0.3 08/04/18 09:50 Neutrophils % 75.4 08/04/18 09:50 Lymphocytes % 12.7 08/04/18 09:50 Monocytes % 10.3 08/04/18 09:50 Eosinophils % 1.1 08/04/18 09:50 Basophils % 0.2 08/04/18 09:50 Absolute Neutrophils 7.89 k/cumm (1.2-6.7) H 08/04/18 09:50 Absolute Lymphocytes 1.33 k/cumm (1.2-3.4) 08/04/18 09:50 Absolute Monocytes 1.08 k/cumm (0.11-0.7) H 08/04/18 09:50 Absolute Eosinophils 0.11 k/cumm (0.0-0.7) 08/04/18 09:50 Absolute Basophils 0.02 k/cumm (0.0-0.2) 08/04/18 09:50 Sodium 137 mmol/L (136-145) 08/05/18 06:45 Potassium 4.8 mmol/L (3.5-5.1) 08/05/18 06:45 Chloride 102 mmol/L (98-107) 08/05/18 06:45 Carbon Dioxide 27.5 mmol/L (21.0-32.0) 08/05/18 06:45 Anion Gap 7.5 mmol/L (3-11) 08/05/18 06:45 BUN 20 mg/dL (7-18) H 08/05/18 06:45 Creatinine 1.47 mg/dL (0.70-1.30) H 08/05/18 06:45 Estimated GFR/1.73 m2 46.83 (mL/min/1.73m2) 08/05/18 06:45 Glucose 197 mg/dL (70-100) H 08/05/18 06:45 Hemoglobin A1c 8.4 % (4.5-6.2) H 08/05/18 06:45 Lactate 1.3 mmol/l (0.6-1.4) 08/04/18 09:50 Calcium 8.2 mg/dL (8.5-10.1) L 08/05/18 06:45 Total Bilirubin 1.0 mg/dL (0.2-1.0) 08/04/18 09:50 AST 20 U/L (15-37) 08/04/18 09:50 ALT 19 U/L (12-78) 08/04/18 09:50 Alkaline Phosphatase 115 U/L (46-116) 08/04/18 09:50 Total Protein 7.2 g/dL (6.4-8.2) 08/04/18 09:50 Albumin 3.2 g/dL (3.4-5.0) L 08/04/18 09:50
[2018-08-05] MEDS: Furosemide 20 MG TAB PO (18:51)
[2018-08-05] MEDS: Insulin Glargine 300 UNITS/3 ML PEN 60 UNITS SC (21:55)
[2018-08-06] MEDS: HYDROcodone 5/Acetaminophen 325 TAB PO ×2 (01:18→13:14)
[2018-08-06] MEDS: Levothyroxine 50 MCG TAB PO (05:32)
[2018-08-06 07:16] LABS: Absolute Basophil Count 0.02 k/cumm (0.0-0.2); Absolute Eosinophil Count 0.19 k/cumm (0.0-0.7); Absolute Neutrophil Count 4.62 k/cumm (1.2-6.7); Basophils % 0.3; Eosinophils % 2.9; HCT 32.3 % (40.0-50.0); HGB 10.7 g/dL (13.5-17.5); Lymphocytes % 15.1; Mean Corp. HGB Concentration 33.1 g/dL (32.0-36.0); Mean Corpuscular Hemoglobin 27.6 pg (27.0-33.0); Mean Corpuscular Volume 83.5 fL (80-95); Mean Platelet Volume 10.4 fL (8.0-11.0); Monocytes % 12.1; Neutrophils % 69.6; Platelet Count 114 x1000/uL (130-400); RBC 3.87 m/cumm (4.50-6.00); White Blood Cell Count 6.63 k/cumm (4.4-10.8)
[2018-08-06 07:30] VITALS: BP 170/81; PULSE 82; RESP 22; TEMP 37.1; O2SAT 97
[2018-08-06 07:45] LABS: Anion Gap 8.9 mmol/L (3-11); BUN 17 mg/dL (7-18); CO2 26.1 mmol/L (21.0-32.0); CREATININE 1.35 mg/dL (0.70-1.30); Calcium 8.1 mg/dL (8.5-10.1); Chloride 101 mmol/L (98-107); Estimated GFR 51.66 (mL/min/1.73m2); Glucose 153 mg/dL (70-100); Potassium 3.8 mmol/L (3.5-5.1); Sodium 136 mmol/L (136-145)
[2018-08-06] MEDS: Timolol 0.5% 5 ML BTL OD ×2 (08:26→21:02)
[2018-08-06] MEDS: Insulin Aspart 300 UNITS/3 ML PEN 10 UNITS SC ×3 (08:26→16:50)
[2018-08-06] MEDS: Apixaban 5 MG TAB PO (08:28)
[2018-08-06] MEDS: Atorvastatin 20 MG TAB 40 MG PO (08:28)
[2018-08-06] MEDS: Refresh PLUS Eye Drops 0.4ml OS (08:28)
[2018-08-06] MEDS: Furosemide 20 MG TAB PO (08:28)
[2018-08-06] MEDS: Lisinopril 10 MG TAB 30 MG PO (08:28)
[2018-08-06] MEDS: Metoprolol 25 MG TAB PO ×2 (08:28→21:02)
[2018-08-06] MEDS: Aspirin E.C. 81 MG TABEC PO (08:28)
[2018-08-06] MEDS: Insulin Aspart 300 UNITS/3 ML PEN SC ×3 (08:29→16:50)
[2018-08-06 08:40] VITALS: O2SAT 95
--- NOTE | 2018-08-06 10:49 | CHAPLAIN ---
Nick was resting in bed and talking with a visitor, when I visited. He remembered me from a previous admission. He was pleasant and easily engaged in a conversation. I offered ongoing support.
--- NOTE | 2018-08-06 12:00 | W.PM.PROGNOT ---
Date of Service Date of service: 08/06/18 Time of Service: 12:00 Subjective Patient reports: no new complaints Interval history since last seen: Nick is seen at bedside. His is with him. He is in a good mood, he indicates he slept like a rock last night. He has no complaints of pain at this time in his foot or elsewhere. Exam Narrative Exam Narrative: He has been afebrile over the last 24 hours. Dressings are removed from his right foot. Hand-held Doppler was employed and dorsalis pedis and posterior tibial arteries are audible. He has good capillary return in toes 1 through 4. The pulp region of the fifth toe has capillary return the lateral and dorsal aspect of the toe is dusky. A slight brownish discharge was appreciated on the dressing, there is no odor. The cellulitis remains within the previous markings and the color of it appears to be changing to a reimbursement coordinator color hopefully indicative of improvement. His calves are soft to palpation and there are no findings of DVT. The incision lines were cleansed with povidone iodine and I removed every other suture from each digit. I was then able to squeeze a little bit of this serous sanguinous fluid from the fifth toe. There may be have a little purulence within it and cultures were obtained. Culture swab was sent to microbiology. Impression: 5 days status post arthroplasty right fourth and fifth toes with postop infection as above Plan we will continue with empiric antibiotics pending culture reports. We did have a discussion concerning the possibility of amputating the right fifth digit. Nick and his had no objection if it would speed up his recuperation. I did indicate that I would like him to have another 24 hours at bed rest and IV antibiotics before making that final decision. We will continue with his current protocols. I did discuss the case with Dr. Munson. We will hold his Eliquis for the time being for the potential of surgical intervention. Objective Objective Clinical Data: Abnormal lab results 08/06/18 08/06/18 Range/Units 06:58 06:58 RBC 3.87 L (4.50-6.00) m/cumm Hgb 10.7 L (13.5-17.5) g/dL Hct 32.3 L (40.0-50.0) % Plt Count 114 L (130-400) x1000/uL Absolute Lymphocytes 1.00 L (1.2-3.4) k/cumm Absolute Monocytes 0.80 H (0.11-0.7) k/cumm Creatinine 1.35 H (0.70-1.30) mg/dL Glucose 153 H (70-100) mg/dL Calcium 8.1 L (8.5-10.1) mg/dL Vital Signs Temperature 37.1 C 08/06/18 07:30 Temperature Source Tympanic 08/06/18 07:30 Pulse 82 08/06/18 07:30 Pulse Rhythm Regular 08/06/18 07:50 Respiratory Rate 22 08/06/18 07:30 Respiratory Effort Non-Labored 08/06/18 07:50 Respiratory Depth Normal 08/06/18 07:50 Respiratory Pattern Normal 08/06/18 07:50 Blood Pressure 170/81 H 08/06/18 07:30 Blood Pressure Position Sitting 08/04/18 09:24 Pulse Oximetry 95 08/06/18 08:40 Oxygen Delivery Method Room Air 08/06/18 08:40 Oxygen Flow Rate 0 08/06/18 08:40 Pain Level 7 08/06/18 01:18 Comment 08/05/18 10:00 Intake & Output 08/05/18 08/06/18 08/06/18 18:59 06:59 18:59 Intake Total 988.75 / 1888.75 900 / 1888.75 250 / 250 Output Total 600 / 3200 2600 / 3200 300 / 300 Balance 388.75 / -1311.25 -1700 / -1311.25 -50 / -50 Weight 134.9 kg 135.5 kg Intake: IV 268.75 / 568.75 300 / 568.75 Oral 720 / 1320 600 / 1320 250 / 250 Output: Urine 600 / 3200 2600 / 3200 300 / 300 Other: Urine Color Yellow Yellow Yellow Urine Appearance Clear Clear Clear Urine Odor None Voiding Methods Urinal Urinal Urinal Laboratory Results WBC 6.63 k/cumm (4.4-10.8) 08/06/18 06:58 RBC 3.87 m/cumm (4.50-6.00) L 08/06/18 06:58 Hgb 10.7 g/dL (13.5-17.5) L 08/06/18 06:58 Hct 32.3 % (40.0-50.0) L 08/06/18 06:58 MCV 83.5 fL (80-95) 08/06/18 06:58 MCH 27.6 pg (27.0-33.0) 08/06/18 06:58 MCHC 33.1 g/dL (32.0-36.0) 08/06/18 06:58 RDW 14.0 % (11.8-14.1) 08/06/18 06:58 Plt Count 114 x1000/uL (130-400) L 08/06/18 06:58 MPV 10.4 fL (8.0-11.0) 08/06/18 06:58 Immature Gran % 0.0 08/06/18 06:58 Neutrophils % 69.6 08/06/18 06:58 Lymphocytes % 15.1 08/06/18 06:58 Monocytes % 12.1 08/06/18 06:58 Eosinophils % 2.9 08/06/18 06:58 Basophils % 0.3 08/06/18 06:58 Absolute Neutrophils 4.62 k/cumm (1.2-6.7) 08/06/18 06:58 Absolute Lymphocytes 1.00 k/cumm (1.2-3.4) L 08/06/18 06:58 Absolute Monocytes 0.80 k/cumm (0.11-0.7) H 08/06/18 06:58 Absolute Eosinophils 0.19 k/cumm (0.0-0.7) 08/06/18 06:58 Absolute Basophils 0.02 k/cumm (0.0-0.2) 08/06/18 06:58 Sodium 136 mmol/L (136-145) 08/06/18 06:58 Potassium 3.8 mmol/L (3.5-5.1) D 08/06/18 06:58 Chloride 101 mmol/L (98-107) 08/06/18 06:58 Carbon Dioxide 26.1 mmol/L (21.0-32.0) 08/06/18 06:58 Anion Gap 8.9 mmol/L (3-11) 08/06/18 06:58 BUN 17 mg/dL (7-18) 08/06/18 06:58 Creatinine 1.35 mg/dL (0.70-1.30) H 08/06/18 06:58 Estimated GFR/1.73 m2 51.66 (mL/min/1.73m2) 08/06/18 06:58 Glucose 153 mg/dL (70-100) H 08/06/18 06:58 Hemoglobin A1c 8.4 % (4.5-6.2) H 08/05/18 06:45 Lactate 1.3 mmol/l (0.6-1.4) 08/04/18 09:50 Calcium 8.1 mg/dL (8.5-10.1) L 08/06/18 06:58 Total Bilirubin 1.0 mg/dL (0.2-1.0) 08/04/18 09:50 AST 20 U/L (15-37) 08/04/18 09:50 ALT 19 U/L (12-78) 08/04/18 09:50 Alkaline Phosphatase 115 U/L (46-116) 08/04/18 09:50 Total Protein 7.2 g/dL (6.4-8.2) 08/04/18 09:50 Albumin 3.2 g/dL (3.4-5.0) L 08/04/18 09:50
--- NOTE | 2018-08-06 12:08 | W.PM.PROGNOT ---
Date of Service Date of service: 08/05/18 Time of Service: 18:08 Exam Narrative Exam Narrative: Nick is seen at bedside. Indicates he is developed a little bit of shortness of breath, his fluids have been discontinued earlier in the day. He is accompanied by his . He is not complaining of any significant pain in his right foot. The wounds are inspected, there has been no significant change. The fifth toe remains a little dusky dorsally and laterally but there is capillary return plantarly at the pulp. The fourth toe is erythematous with good capillary return. His foot is otherwise warm to the touch cellulitis is slightly improved his calves are soft to palpation there is no finding of DVT. There has not been any drainage yet coming from the wounds no cultures have been obtained we will continue with empiric antibiotics. I did discuss the case with Dr. Munson. We will continue to follow him closely hopefully tomorrow will be a turning point and will have a clear a path as to definitive management for this problem Objective Objective Clinical Data: Abnormal lab results 08/06/18 08/06/18 Range/Units 06:58 06:58 RBC 3.87 L (4.50-6.00) m/cumm Hgb 10.7 L (13.5-17.5) g/dL Hct 32.3 L (40.0-50.0) % Plt Count 114 L (130-400) x1000/uL Absolute Lymphocytes 1.00 L (1.2-3.4) k/cumm Absolute Monocytes 0.80 H (0.11-0.7) k/cumm Creatinine 1.35 H (0.70-1.30) mg/dL Glucose 153 H (70-100) mg/dL Calcium 8.1 L (8.5-10.1) mg/dL Vital Signs Temperature 37.1 C 08/06/18 07:30 Temperature Source Tympanic 08/06/18 07:30 Pulse 82 08/06/18 07:30 Pulse Rhythm Regular 08/06/18 07:50 Respiratory Rate 22 08/06/18 07:30 Respiratory Effort Non-Labored 08/06/18 07:50 Respiratory Depth Normal 08/06/18 07:50 Respiratory Pattern Normal 08/06/18 07:50 Blood Pressure 170/81 H 08/06/18 07:30 Blood Pressure Position Sitting 08/04/18 09:24 Pulse Oximetry 95 08/06/18 08:40 Oxygen Delivery Method Room Air 08/06/18 08:40 Oxygen Flow Rate 0 08/06/18 08:40 Pain Level 7 08/06/18 01:18 Comment 08/05/18 10:00 Intake & Output 08/05/18 08/06/18 08/06/18 18:59 06:59 18:59 Intake Total 988.75 / 1888.75 900 / 1888.75 250 / 250 Output Total 600 / 3200 2600 / 3200 300 / 300 Balance 388.75 / -1311.25 -1700 / -1311.25 -50 / -50 Weight 134.9 kg 135.5 kg Intake: IV 268.75 / 568.75 300 / 568.75 Oral 720 / 1320 600 / 1320 250 / 250 Output: Urine 600 / 3200 2600 / 3200 300 / 300 Other: Urine Color Yellow Yellow Yellow Urine Appearance Clear Clear Clear Urine Odor None Voiding Methods Urinal Urinal Urinal Laboratory Results WBC 6.63 k/cumm (4.4-10.8) 08/06/18 06:58 RBC 3.87 m/cumm (4.50-6.00) L 08/06/18 06:58 Hgb 10.7 g/dL (13.5-17.5) L 08/06/18 06:58 Hct 32.3 % (40.0-50.0) L 08/06/18 06:58 MCV 83.5 fL (80-95) 08/06/18 06:58 MCH 27.6 pg (27.0-33.0) 08/06/18 06:58 MCHC 33.1 g/dL (32.0-36.0) 08/06/18 06:58 RDW 14.0 % (11.8-14.1) 08/06/18 06:58 Plt Count 114 x1000/uL (130-400) L 08/06/18 06:58 MPV 10.4 fL (8.0-11.0) 08/06/18 06:58 Immature Gran % 0.0 08/06/18 06:58 Neutrophils % 69.6 08/06/18 06:58 Lymphocytes % 15.1 08/06/18 06:58 Monocytes % 12.1 08/06/18 06:58 Eosinophils % 2.9 08/06/18 06:58 Basophils % 0.3 08/06/18 06:58 Absolute Neutrophils 4.62 k/cumm (1.2-6.7) 08/06/18 06:58 Absolute Lymphocytes 1.00 k/cumm (1.2-3.4) L 08/06/18 06:58 Absolute Monocytes 0.80 k/cumm (0.11-0.7) H 08/06/18 06:58 Absolute Eosinophils 0.19 k/cumm (0.0-0.7) 08/06/18 06:58 Absolute Basophils 0.02 k/cumm (0.0-0.2) 08/06/18 06:58 Sodium 136 mmol/L (136-145) 08/06/18 06:58 Potassium 3.8 mmol/L (3.5-5.1) D 08/06/18 06:58 Chloride 101 mmol/L (98-107) 08/06/18 06:58 Carbon Dioxide 26.1 mmol/L (21.0-32.0) 08/06/18 06:58 Anion Gap 8.9 mmol/L (3-11) 08/06/18 06:58 BUN 17 mg/dL (7-18) 08/06/18 06:58 Creatinine 1.35 mg/dL (0.70-1.30) H 08/06/18 06:58 Estimated GFR/1.73 m2 51.66 (mL/min/1.73m2) 08/06/18 06:58 Glucose 153 mg/dL (70-100) H 08/06/18 06:58 Hemoglobin A1c 8.4 % (4.5-6.2) H 08/05/18 06:45 Lactate 1.3 mmol/l (0.6-1.4) 08/04/18 09:50 Calcium 8.1 mg/dL (8.5-10.1) L 08/06/18 06:58 Total Bilirubin 1.0 mg/dL (0.2-1.0) 08/04/18 09:50 AST 20 U/L (15-37) 08/04/18 09:50 ALT 19 U/L (12-78) 08/04/18 09:50 Alkaline Phosphatase 115 U/L (46-116) 08/04/18 09:50 Total Protein 7.2 g/dL (6.4-8.2) 08/04/18 09:50 Albumin 3.2 g/dL (3.4-5.0) L 08/04/18 09:50
[2018-08-06 13:57] LABS: Vancomycin, Trough 13.1 ug/mL (10.0-20.0)
[2018-08-06] MEDS: CEFEPIME 2 GM in Normal Saline 100 ML IVPB ×2 (14:19→23:51)
--- NOTE | 2018-08-06 14:25 | PDOC.CMPRO ---
- If Service Date Differs Date of service: 08/06/18 Time of Service: 14:26 Care Management Progress Note S/O: Nick is lying in bed this morning, pleasant and open to discussion. He continues on IV antibiotics and Dr. Trujillo met with him today. No change in DC plan. A: 73 y/o male admitted 08/04/18 for (R) foot cellulitis. P: Nick will return home once medically cleared with no anticipated services. He will F/U with Dr. Trujillo, PCP, and plan of care as prescribed. His SO will transport when ready.
[2018-08-06 16:00] VITALS: BP 127/62; PULSE 88; RESP 19; TEMP 37.1; O2SAT 95
--- NOTE | 2018-08-06 16:26 | W.PM.PROGNOT ---
Date of Service Date of service: 08/06/18 Time of Service: 16:26 Assessment and Plan (1) Cellulitis of right foot: Current visit: Yes Status: Acute As per Dr. Trujillo's note. There is concern about healing of this relatively poorly vascularized region. There is apparently continued duskiness of the fifth toe. Dr. Trujillo is considering further debridement and possible amputation. We will hold the anticoagulation this evening and tomorrow in anticipation of possible surgery. (2) Sepsis: Current visit: Yes Status: Acute Blood cultures are no growth. Dr. Trujillo did remove one suture and was able to culture some purulent material which may help guide therapy going forward. Continue vancomycin and cefepime as empiric therapy for now. (3) Atrial fibrillation: Current visit: Yes Status: Chronic Heart rate is well controlled. We are holding his anticoagulation in anticipation of potential surgery tomorrow. Restart tomorrow night if all goes well. (4) Diabetes mellitus type 2: Current visit: Yes Status: Chronic Hemoglobin A1c 8.4%. Continue present medications. (5) Discharge planning issues: Current visit: Yes Status: Acute He remains a full code continue to monitor in acute care status. Subjective Interval history since last seen: Patient states he feels fine. His appetite is excellent. Apparently had some chills and sweats during the night but did not inform anybody, his says that is typical for him. No recorded fevers in the last 24 hours. No significant pain in the right foot. Dr. Trujillo was in to evaluate and is considering further excision and possible amputation. Patient is okay with this and feels it will likely all heal quicker that way. Exam Narrative Exam Narrative: Patient is sitting upright on the side of the bed having his lunch. He is complaining of some upper respiratory congestion and mild cough. His lung exam is completely clear on the right and left. His heart sounds are regular no significant murmur abdomen quite markedly obese nontender the right lower extremity looks unchanged. I did not take the dressing down. Objective Objective Clinical Data: Abnormal lab results 08/06/18 08/06/18 Range/Units 06:58 06:58 RBC 3.87 L (4.50-6.00) m/cumm Hgb 10.7 L (13.5-17.5) g/dL Hct 32.3 L (40.0-50.0) % Plt Count 114 L (130-400) x1000/uL Absolute Lymphocytes 1.00 L (1.2-3.4) k/cumm Absolute Monocytes 0.80 H (0.11-0.7) k/cumm Creatinine 1.35 H (0.70-1.30) mg/dL Glucose 153 H (70-100) mg/dL Calcium 8.1 L (8.5-10.1) mg/dL Vital Signs Temperature 37.1 C 08/06/18 16:00 Temperature Source Tympanic 08/06/18 16:00 Pulse 88 08/06/18 16:00 Pulse Rhythm Regular 08/06/18 07:50 Respiratory Rate 19 08/06/18 16:00 Respiratory Effort Non-Labored 08/06/18 07:50 Respiratory Depth Normal 08/06/18 07:50 Respiratory Pattern Normal 08/06/18 07:50 Blood Pressure 127/62 08/06/18 16:00 Blood Pressure Position Sitting 08/04/18 09:24 Pulse Oximetry 95 08/06/18 16:00 Oxygen Delivery Method Room Air 08/06/18 16:00 Oxygen Flow Rate 0 08/06/18 16:00 Pain Level 8 08/06/18 13:14 Comment 08/05/18 10:00 Intake & Output 08/05/18 08/06/18 08/06/18 23:59 11:59 23:59 Intake Total 580 / 3138.75 1150 / 1400 250 / 1400 Output Total 1600 / 2200 1300 / 2150 850 / 2150 Balance -1020 / 938.75 -150 / -750 -600 / -750 Weight 135.5 kg Intake: IV 100 / 1568.75 300 / 400 100 / 400 Oral 480 / 1570 850 / 1000 150 / 1000 Output: Urine 1600 / 2200 1300 / 2150 850 / 2150 Other: Urine Color Yellow Yellow Straw Urine Appearance Clear Clear Clear Urine Odor None Strong Voiding Methods Urinal Urinal Urinal Laboratory Results WBC 6.63 k/cumm (4.4-10.8) 08/06/18 06:58 RBC 3.87 m/cumm (4.50-6.00) L 08/06/18 06:58 Hgb 10.7 g/dL (13.5-17.5) L 08/06/18 06:58 Hct 32.3 % (40.0-50.0) L 08/06/18 06:58 MCV 83.5 fL (80-95) 08/06/18 06:58 MCH 27.6 pg (27.0-33.0) 08/06/18 06:58 MCHC 33.1 g/dL (32.0-36.0) 08/06/18 06:58 RDW 14.0 % (11.8-14.1) 08/06/18 06:58 Plt Count 114 x1000/uL (130-400) L 08/06/18 06:58 MPV 10.4 fL (8.0-11.0) 08/06/18 06:58 Immature Gran % 0.0 08/06/18 06:58 Neutrophils % 69.6 08/06/18 06:58 Lymphocytes % 15.1 08/06/18 06:58 Monocytes % 12.1 08/06/18 06:58 Eosinophils % 2.9 08/06/18 06:58 Basophils % 0.3 08/06/18 06:58 Absolute Neutrophils 4.62 k/cumm (1.2-6.7) 08/06/18 06:58 Absolute Lymphocytes 1.00 k/cumm (1.2-3.4) L 08/06/18 06:58 Absolute Monocytes 0.80 k/cumm (0.11-0.7) H 08/06/18 06:58 Absolute Eosinophils 0.19 k/cumm (0.0-0.7) 08/06/18 06:58 Absolute Basophils 0.02 k/cumm (0.0-0.2) 08/06/18 06:58 Sodium 136 mmol/L (136-145) 08/06/18 06:58 Potassium 3.8 mmol/L (3.5-5.1) D 08/06/18 06:58 Chloride 101 mmol/L (98-107) 08/06/18 06:58 Carbon Dioxide 26.1 mmol/L (21.0-32.0) 08/06/18 06:58 Anion Gap 8.9 mmol/L (3-11) 08/06/18 06:58 BUN 17 mg/dL (7-18) 08/06/18 06:58 Creatinine 1.35 mg/dL (0.70-1.30) H 08/06/18 06:58 Estimated GFR/1.73 m2 51.66 (mL/min/1.73m2) 08/06/18 06:58 Glucose 153 mg/dL (70-100) H 08/06/18 06:58 Hemoglobin A1c 8.4 % (4.5-6.2) H 08/05/18 06:45 Lactate 1.3 mmol/l (0.6-1.4) 08/04/18 09:50 Calcium 8.1 mg/dL (8.5-10.1) L 08/06/18 06:58 Total Bilirubin 1.0 mg/dL (0.2-1.0) 08/04/18 09:50 AST 20 U/L (15-37) 08/04/18 09:50 ALT 19 U/L (12-78) 08/04/18 09:50 Alkaline Phosphatase 115 U/L (46-116) 08/04/18 09:50 Total Protein 7.2 g/dL (6.4-8.2) 08/04/18 09:50 Albumin 3.2 g/dL (3.4-5.0) L 08/04/18 09:50 Vancomycin Trough 13.1 ug/mL (10.0-20.0) 08/06/18 13:25
[2018-08-06] MEDS: Insulin Glargine 300 UNITS/3 ML PEN 60 UNITS SC (21:00)
[2018-08-06 23:34] VITALS: BP 168/81; PULSE 73; RESP 18; TEMP 37.1; O2SAT 98
[2018-08-06] MEDS: Normal Saline Flush 10 ML SYR IVP (23:51)
[2018-08-07] VITALS (8 sets, daily range): BP systolic 102–175; BP diastolic 50–88; PULSE 72–88; RESP 18–20; TEMP 36.2–37.9; O2SAT 95–100
[2018-08-07] MEDS: Levothyroxine 50 MCG TAB PO (06:58)
--- NOTE | 2018-08-07 07:06 | W.PM.PROGNOT ---
Date of Service Date of service: 08/07/18 Time of Service: 07:06 Exam Narrative Exam Narrative: Nick is seen at bedside. He is awake. He indicates he slept pretty well last night. He has no complaints of pain at this point. He is accompanied by his . Physical examination: Dressings are removed from the right foot. Slight serous drainage is noted on the dressings. His erythema persists in toes 4 and 5 with extension dorsally onto the foot there may be perhaps slight extension dorsal laterally over the previously etched markings on his foot. His calves are soft to palpation nodes are appreciated. He has a good popliteal pulse in his right lower extremity. The right fifth toe remains somewhat dusky there is some capillary return to a small area of the plantar pulp but the medial lateral and dorsal aspect of the toe remains dark. The fifth toe is pink and vascular although the surgical incision is slightly dehisced. No pus is extruded from either digit at this time. Impressions: 6 days status post arthroplasties right fourth and fifth toe with infection in a poorly controlled diabetic Microvascular diabetic peripheral vascular disease Plan: Plan on bringing Nick to the OR this morning for washout of his wounds, debridement of necrotic tissue which will likely culminate in a amputation of the fifth digit. I did indicate to him and his that we will reach out to vascular at [facility] to see if intervention would be appropriate in facilitating wound healing. All questions have been answered. They are fully aware that multiple debridements may be required. There are no guarantees stated. Informed consent is obtained. Objective Objective Clinical Data: Abnormal lab results 08/06/18 08/06/18 Range/Units 06:58 06:58 RBC 3.87 L (4.50-6.00) m/cumm Hgb 10.7 L (13.5-17.5) g/dL Hct 32.3 L (40.0-50.0) % Plt Count 114 L (130-400) x1000/uL Absolute Lymphocytes 1.00 L (1.2-3.4) k/cumm Absolute Monocytes 0.80 H (0.11-0.7) k/cumm Creatinine 1.35 H (0.70-1.30) mg/dL Glucose 153 H (70-100) mg/dL Calcium 8.1 L (8.5-10.1) mg/dL Vital Signs Temperature 37.1 C 08/06/18 23:34 Temperature Source Tympanic 08/06/18 23:34 Pulse 73 08/06/18 23:34 Pulse Rhythm Regular 08/06/18 23:55 Respiratory Rate 18 08/06/18 23:34 Respiratory Effort 08/06/18 23:55 Respiratory Depth Normal 08/06/18 23:55 Respiratory Pattern Normal 08/06/18 23:55 Blood Pressure 168/81 H 08/06/18 23:34 Blood Pressure Position Sitting 08/04/18 09:24 Pulse Oximetry 98 08/06/18 23:34 Oxygen Delivery Method Room Air 08/06/18 23:34 Oxygen Flow Rate 0 08/06/18 23:34 Pain Level 8 08/06/18 13:14 Comment 08/05/18 10:00 Intake & Output 08/06/18 08/07/18 08/07/18 18:59 06:59 18:59 Intake Total 1670 / 2095 425 / 2095 Output Total 1150 / 2800 1650 / 2800 Balance 520 / -705 -1225 / -705 Intake: IV 310 / 410 100 / 410 Oral 1360 / 1685 325 / 1685 Output: Urine 1150 / 2800 1650 / 2800 Other: Urine Color Straw Yellow Urine Appearance Clear Clear Urine Odor Strong Normal Stool Size Moderate Stool Characteristics Soft Formed Voiding Methods Urinal Urinal Laboratory Results WBC 6.63 k/cumm (4.4-10.8) 08/06/18 06:58 RBC 3.87 m/cumm (4.50-6.00) L 08/06/18 06:58 Hgb 10.7 g/dL (13.5-17.5) L 08/06/18 06:58 Hct 32.3 % (40.0-50.0) L 08/06/18 06:58 MCV 83.5 fL (80-95) 08/06/18 06:58 MCH 27.6 pg (27.0-33.0) 08/06/18 06:58 MCHC 33.1 g/dL (32.0-36.0) 08/06/18 06:58 RDW 14.0 % (11.8-14.1) 08/06/18 06:58 Plt Count 114 x1000/uL (130-400) L 08/06/18 06:58 MPV 10.4 fL (8.0-11.0) 08/06/18 06:58 Immature Gran % 0.0 08/06/18 06:58 Neutrophils % 69.6 08/06/18 06:58 Lymphocytes % 15.1 08/06/18 06:58 Monocytes % 12.1 08/06/18 06:58 Eosinophils % 2.9 08/06/18 06:58 Basophils % 0.3 08/06/18 06:58 Absolute Neutrophils 4.62 k/cumm (1.2-6.7) 08/06/18 06:58 Absolute Lymphocytes 1.00 k/cumm (1.2-3.4) L 08/06/18 06:58 Absolute Monocytes 0.80 k/cumm (0.11-0.7) H 08/06/18 06:58 Absolute Eosinophils 0.19 k/cumm (0.0-0.7) 08/06/18 06:58 Absolute Basophils 0.02 k/cumm (0.0-0.2) 08/06/18 06:58 Sodium 136 mmol/L (136-145) 08/06/18 06:58 Potassium 3.8 mmol/L (3.5-5.1) D 08/06/18 06:58 Chloride 101 mmol/L (98-107) 08/06/18 06:58 Carbon Dioxide 26.1 mmol/L (21.0-32.0) 08/06/18 06:58 Anion Gap 8.9 mmol/L (3-11) 08/06/18 06:58 BUN 17 mg/dL (7-18) 08/06/18 06:58 Creatinine 1.35 mg/dL (0.70-1.30) H 08/06/18 06:58 Estimated GFR/1.73 m2 51.66 (mL/min/1.73m2) 08/06/18 06:58 Glucose 153 mg/dL (70-100) H 08/06/18 06:58 Hemoglobin A1c 8.4 % (4.5-6.2) H 08/05/18 06:45 Lactate 1.3 mmol/l (0.6-1.4) 08/04/18 09:50 Calcium 8.1 mg/dL (8.5-10.1) L 08/06/18 06:58 Total Bilirubin 1.0 mg/dL (0.2-1.0) 08/04/18 09:50 AST 20 U/L (15-37) 08/04/18 09:50 ALT 19 U/L (12-78) 08/04/18 09:50 Alkaline Phosphatase 115 U/L (46-116) 08/04/18 09:50 Total Protein 7.2 g/dL (6.4-8.2) 08/04/18 09:50 Albumin 3.2 g/dL (3.4-5.0) L 08/04/18 09:50 Vancomycin Trough 13.1 ug/mL (10.0-20.0) 08/06/18 13:25
[2018-08-07] MEDS: Refresh PLUS Eye Drops 0.4ml OS (07:46)
[2018-08-07] MEDS: Lisinopril 10 MG TAB 30 MG PO (07:47)
[2018-08-07] MEDS: Atorvastatin 20 MG TAB 40 MG PO (07:48)
[2018-08-07] MEDS: Furosemide 20 MG TAB PO (07:48)
[2018-08-07] MEDS: Metoprolol 25 MG TAB PO ×2 (07:48→19:37)
[2018-08-07] MEDS: Timolol 0.5% 5 ML BTL OD ×2 (07:50→19:39)
[2018-08-07] MEDS: Normal Saline Flush 10 ML SYR IVP ×5 (07:51→23:51)
[2018-08-07] MEDS: Lactated Ringers 1,000 ML 50 ML IV (09:55)
[2018-08-07] MEDS: Bupivacaine 0.5% Pres-Free 30 ML VIAL (10:04)
[2018-08-07] MEDS: Lidocaine 1% Multi-Dose 50 ML VIAL (10:04)
--- NOTE | 2018-08-07 10:20 | TOE_PTH ---
PATIENT: Nick Stapleton LOC: U#:[id number] AGE/SX: 73/M ROOM: 217 RE08/04/[address]: Mariano Gavin : 1945 BED: A DIS: 08/11/2018 SPEC #: [id number] RECD: 08/07/18 11:55 STATUS: HELLEN RECecil #: [id number] [place]: 08/07/18 10:[address]: Jarred Trujillo DEPT: Surgical Specimen RECD BY: Aguilar Ramirez ENTERED: 08/07/18 11:57 SP TYPE: TOE OTHR DR: William Herrera Tissues: 1 - AMPUTATION FINGERS/TOES(NOT TRAUMA) Procedures: GROSS AND MICRO LEVEL 3 DECALCIFICATION GROSS LEVEL 1 Comments: [id number]
--- NOTE | 2018-08-07 11:00 | NUR.NOTE ---
Nursing Note: Pt arrived back to room 216 from his procedure. VSS. A&Ox3. denies pain. reports hunger. stable. will continue to monitor.
[2018-08-07] MEDS: CEFEPIME 2 GM in Normal Saline 100 ML IVPB ×2 (11:42→23:52)
[2018-08-07] MEDS: Insulin Aspart 300 UNITS/3 ML PEN 10 UNITS SC ×2 (11:51→17:07)
[2018-08-07] MEDS: Insulin Aspart 300 UNITS/3 ML PEN SC ×2 (11:52→17:07)
--- NOTE | 2018-08-07 11:56 | ROE_ITS ---
REPORT OF OPERATIVE PROCEDURE DATE OF SURGERY August 07, 2018 PREOPERATIVE DIAGNOSES Gangrenous change with postoperative infection, right fourth and fifth toes. POSTOPERATIVE DIAGNOSES Gangrenous change with postoperative infection, right fourth and fifth toes. PROCEDURES Washout of surgical incisions with debridement of the fourth toe, amputation of the right fifth toe a t the MPJ level. ANESTHESIA Monitored Anesthesia Care with ankle blockage utilizing 20 cc of a 50:50 mixture 1% lidocaine plain, 0.5% bupivacaine plain. 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 Subsequently, on his first followup, 72 hours posto p, he was noted to have erythema with cellulitis coming from the fourth and fifth toes to the right f oot. He was subsequently admitted to the hospital for IV antibiotics and bed rest. During his admissi on, the fifth toe has continued to go dusky. The infection has remained fairly static and he is being brought to the OR for washout and surgical debridement. He fully understands the risks and complicat ions of surgery, as well as the permanency of an amputation. All questions have been answered. Inform ed consent has been obtained. REPORT OF OPERATION Nick was brought to the Operative Suite, placed in the supine position, where the right foot was prepped and draped in the usual sterile podiatric fashion. Anesthesia being obtained, attention was d irected to the fourth and fifth toes, where all remaining suture released. The incision on the fourth toe was partially healed, although the central portion appeared somewhat soft. Debridement was perf ormed removing any devitalized tissue. I opened the incision, there was no tracie purulence identified within this wound. I removed my deep Vicryl, inspected the tendon and joint and there was no purulen ce identified at that level. There is still a chronic wound on the lateral wall of the fourth toe at the PIPJ level, which does communicate to the deep portion of the toe. It did not communicate with th e joint preoperatively. Attention was directed to the fifth toe. The incision was probed and it was brown devitalized, purule nt material was appreciated and it was clearly not viable. Two converging elliptical incisions were p laced at the base of the toe so as to afford a dorsal and plantar flap. The extensor tendons were cut through, as were the flexor tendons. Another #15 scalpel was placed down to bone, carried proximally to the MPJ and the joint released. The fifth toe was removed from the surgical wound. At this point, no pus was noted. Bleeding was slow. There were no actual bleeders identified. A little bit of blood did pool up into the space. Copious irrigation was subsequently performed using normal saline. We packed the amputation site open with 1/4 inch iodoform Nu Gauze, I through a drain through the lat eral wall ulcer up through the incision of the fourth toe and I closed the most proximal and distal a spect of the incision with simple interrupted suture of #3-0 Nylon just to keep the wound from contra cting. The foot was subsequently covered with fluff gauze compression wrap. The patient left the OR w ith vital signs stable, vascular status intact. Sharp and sponge counts were correct. He will remain inhouse for ongoing IV antibiotics and wound care. I did discuss this case with Dr. De Souza, who has agreed to take call for me over the upcoming , as I plan on being out of town. Dr. Leija is also aware of this arrangement. CC: William Herrera M.D.
[2018-08-07 13:18] LABS: Vancomycin, Trough 15.4 ug/mL (10.0-20.0)
[2018-08-07] MEDS: Normal Saline 500 ML 30 ML IV (13:47)
[2018-08-07] MEDS: HYDROcodone 5/Acetaminophen 325 TAB PO (16:26)
--- NOTE | 2018-08-07 18:44 | W.PM.PROGNOT ---
Date of Service Date of service: 08/07/18 Time of Service: 18:44 Assessment and Plan (1) Cellulitis of right foot: Current visit: Yes Status: Acute The cellulitis of the right foot appears to be responding to broad-spectrum antibiotics. He had further debridement and an amputation today because of ischemia in the region. Dr. Trujillo would like a referral to vascular surgery. Will discuss with [facility] vascular surgery tomorrow about the possibility of evaluation for revascularization. (2) Discharge planning issues: Current visit: Yes Status: Acute He remains a full code in acute care status. Subjective Interval history since last seen: Patient went to the OR today for amputation of the right fifth toe with Dr. Trujillo. He is overall feeling well postoperatively. His appetite is back. He is having no pain control issues. Exam Narrative Exam Narrative: Patient is lying flat in bed. He is alert and conversant with family members. He has a large dressing on his right foot that I did not disturb. His legs otherwise looked unchanged. He had no respiratory issues that were apparent. Objective Objective Clinical Data: Vital Signs Temperature 37.9 C H 08/07/18 15:41 Temperature Source Tympanic 08/07/18 15:41 Pulse 88 08/07/18 15:41 Pulse Rhythm Regular 08/07/18 16:14 Pulse 79 08/07/18 08:17 Respiratory Rate 18 08/07/18 15:41 Respiratory Effort Non-Labored 08/07/18 16:14 Respiratory Depth Normal 08/07/18 16:14 Respiratory Pattern Normal 08/07/18 16:14 Blood Pressure 165/88 H 08/07/18 15:41 Blood Pressure Position Sitting 08/04/18 09:24 Pulse Oximetry 100 08/07/18 15:41 Oxygen Delivery Method Room Air 08/07/18 15:41 Oxygen Flow Rate 0 08/07/18 15:41 Pain Level 2 08/07/18 17:09 Comment 08/05/18 10:00 Intake & Output 08/06/18 08/07/18 08/07/18 23:59 11:59 23:59 Intake Total 1745 / 2895 350 / 1051.45 701.45 / 1051.45 Output Total 1500 / 2800 1000 / 1700 700 / 1700 Balance 245 / 95 -650 / -648.55 1.45 / -648.55 Weight 135.5 kg Intake: IV 310 / 610 350 / 571.45 221.45 / 571.45 Oral 1435 / 2285 0 / 480 480 / 480 Output: Urine 1500 / 2800 1000 / 1700 700 / 1700 Other: Urine Color Yellow Yellow Urine Appearance Clear Clear Clear Urine Odor Normal Normal Comment total from 3 voids Stool Size Moderate Stool Characteristics Soft Formed Voiding Methods Urinal Urinal Laboratory Results WBC 6.63 k/cumm (4.4-10.8) 08/06/18 06:58 RBC 3.87 m/cumm (4.50-6.00) L 08/06/18 06:58 Hgb 10.7 g/dL (13.5-17.5) L 08/06/18 06:58 Hct 32.3 % (40.0-50.0) L 08/06/18 06:58 MCV 83.5 fL (80-95) 08/06/18 06:58 MCH 27.6 pg (27.0-33.0) 08/06/18 06:58 MCHC 33.1 g/dL (32.0-36.0) 08/06/18 06:58 RDW 14.0 % (11.8-14.1) 08/06/18 06:58 Plt Count 114 x1000/uL (130-400) L 08/06/18 06:58 MPV 10.4 fL (8.0-11.0) 08/06/18 06:58 Immature Gran % 0.0 08/06/18 06:58 Neutrophils % 69.6 08/06/18 06:58 Lymphocytes % 15.1 08/06/18 06:58 Monocytes % 12.1 08/06/18 06:58 Eosinophils % 2.9 08/06/18 06:58 Basophils % 0.3 08/06/18 06:58 Absolute Neutrophils 4.62 k/cumm (1.2-6.7) 08/06/18 06:58 Absolute Lymphocytes 1.00 k/cumm (1.2-3.4) L 08/06/18 06:58 Absolute Monocytes 0.80 k/cumm (0.11-0.7) H 08/06/18 06:58 Absolute Eosinophils 0.19 k/cumm (0.0-0.7) 08/06/18 06:58 Absolute Basophils 0.02 k/cumm (0.0-0.2) 08/06/18 06:58 Sodium 136 mmol/L (136-145) 08/06/18 06:58 Potassium 3.8 mmol/L (3.5-5.1) D 08/06/18 06:58 Chloride 101 mmol/L (98-107) 08/06/18 06:58 Carbon Dioxide 26.1 mmol/L (21.0-32.0) 08/06/18 06:58 Anion Gap 8.9 mmol/L (3-11) 08/06/18 06:58 BUN 17 mg/dL (7-18) 08/06/18 06:58 Creatinine 1.35 mg/dL (0.70-1.30) H 08/06/18 06:58 Estimated GFR/1.73 m2 51.66 (mL/min/1.73m2) 08/06/18 06:58 Glucose 153 mg/dL (70-100) H 08/06/18 06:58 Hemoglobin A1c 8.4 % (4.5-6.2) H 08/05/18 06:45 Lactate 1.3 mmol/l (0.6-1.4) 08/04/18 09:50 Calcium 8.1 mg/dL (8.5-10.1) L 08/06/18 06:58 Total Bilirubin 1.0 mg/dL (0.2-1.0) 08/04/18 09:50 AST 20 U/L (15-37) 08/04/18 09:50 ALT 19 U/L (12-78) 08/04/18 09:50 Alkaline Phosphatase 115 U/L (46-116) 08/04/18 09:50 Total Protein 7.2 g/dL (6.4-8.2) 08/04/18 09:50 Albumin 3.2 g/dL (3.4-5.0) L 08/04/18 09:50 Vancomycin Trough 15.4 ug/mL (10.0-20.0) 08/07/18 12:53
[2018-08-07] MEDS: Apixaban 5 MG TAB PO (19:37)
--- NOTE | 2018-08-07 20:25 | PDOC.CMPRO ---
- If Service Date Differs Date of service: 08/07/18 Time of Service: 20:25 Care Management Progress Note S/O: Nick went to the OR today he remains acute at this time. He continues on IV abx and wound care. Nick would benefit from a diabetic consult with his spouse present for teaching. His A1c is elevated and his spouse does most of the cooking in the home. CM will review with provider concerns and follow up. A: Nick is a 73 year old male admitted with Cellulitis of the right foot status post debridement on 08/01/18 and again today with amputation of the right fifth toe. Nick has a history of DM last A1C 8.4 and significant cardiovascular disease. P:Nick is receiving IV antibiotics and continued wound management. Podiatry and hospitalist managing patient. Nick will be discharged home when medically ready. Provider to contact [facility] vascular for follow up and recommendations. CM to continue to provide support to pt ongoing discharge planning and disposition.
--- NOTE | 2018-08-07 20:33 | CMPROGNOTE_ITS ---
- If Service Date Differs Date of service: 08/07/18 Time of Service: 20:25 Care Management Progress Note S/O: Nick went to the OR today he remains acute at this time. He continues on IV abx and wound care. Nick would benefit from a diabetic consult with his spouse present for teaching. His A1c is elevated and his spouse does most of the cooking in the home. CM will review with provider concerns and follow up. A: Nick is a 73 year old male admitted with Cellulitis of the right foot status post debridement on 08/01/18 and again today with amputation of the right fifth toe. Nick has a history of DM last A1C 8.4 and significant cardiovascular disease. P:Nick is receiving IV antibiotics and continued wound management. Podiatry and hospitalist managing patient. Nick will be discharged home when medically ready. Provider to contact [facility] vascular for follow up and recommendations. CM to continue to provide support to pt ongoing discharge planning and disposition.
[2018-08-07] MEDS: Insulin Glargine 300 UNITS/3 ML PEN 60 UNITS SC (21:32)
[2018-08-08] MEDS: Levothyroxine 50 MCG TAB PO (06:06)
[2018-08-08 07:29] LABS: Abs Immature Grans 0.01 k/cumm (0.0-0.09); Absolute Basophil Count 0.02 k/cumm (0.0-0.2); Absolute Eosinophil Count 0.22 k/cumm (0.0-0.7); Absolute Lymphocyte Count 0.92 k/cumm (1.2-3.4); Absolute Monocyte Count 0.81 k/cumm (0.11-0.7); Absolute Neutrophil Count 3.03 k/cumm (1.2-6.7); Basophils % 0.4; Eosinophils % 4.4; HCT 30.5 % (40.0-50.0); HGB 10.2 g/dL (13.5-17.5); Immature Grans % 0.2; Lymphocytes % 18.4; Mean Corp. HGB Concentration 33.4 g/dL (32.0-36.0); Mean Corpuscular Hemoglobin 27.7 pg (27.0-33.0); Mean Corpuscular Volume 82.9 fL (80-95); Mean Platelet Volume 10.4 fL (8.0-11.0); Monocytes % 16.2; Neutrophils % 60.4; Platelet Count 128 x1000/uL (130-400); RBC 3.68 m/cumm (4.50-6.00); RBC Distribution Width 14.1 % (11.8-14.1); White Blood Cell Count 5.01 k/cumm (4.4-10.8)
[2018-08-08 07:45] VITALS: BP 138/69; PULSE 73; RESP 18; TEMP 36.3; O2SAT 96
[2018-08-08 07:48] LABS: Anion Gap 10.4 mmol/L (3-11); BUN 18 mg/dL (7-18); C-Reactive Protein 14.84 mg/dL (0.0-0.3); CO2 25.6 mmol/L (21.0-32.0); CREATININE 1.26 mg/dL (0.70-1.30); Calcium 8.3 mg/dL (8.5-10.1); Chloride 100 mmol/L (98-107); Estimated GFR 55.94 (mL/min/1.73m2); Glucose 174 mg/dL (70-100); Potassium 3.7 mmol/L (3.5-5.1); Sodium 136 mmol/L (136-145)
[2018-08-08] MEDS: Furosemide 20 MG TAB PO (08:05)
[2018-08-08] MEDS: Atorvastatin 20 MG TAB 40 MG PO (08:05)
[2018-08-08] MEDS: Timolol 0.5% 5 ML BTL OD ×2 (08:05→19:20)
[2018-08-08] MEDS: Lisinopril 10 MG TAB 30 MG PO (08:05)
[2018-08-08] MEDS: Aspirin E.C. 81 MG TABEC PO (08:05)
[2018-08-08] MEDS: Apixaban 5 MG TAB PO ×2 (08:05→19:19)
[2018-08-08] MEDS: Metoprolol 25 MG TAB PO ×2 (08:05→19:19)
[2018-08-08] MEDS: Insulin Aspart 300 UNITS/3 ML PEN SC ×2 (08:06→16:52)
[2018-08-08] MEDS: Insulin Aspart 300 UNITS/3 ML PEN 10 UNITS SC ×3 (08:06→16:49)
[2018-08-08 09:20] VITALS: O2SAT 96
--- NOTE | 2018-08-08 14:19 | PDOC.CMPRO ---
- If Service Date Differs Date of service: 08/08/18 Time of Service: 14:19 Care Management Progress Note S/O: Nick does not want to be transferred to [facility] for vascular. He remains acute at this time. will be covering over the weekend. Nick would like home health services nursing for wound care. CM faxed referral to [facility]. A: Nick is a 73 year old male admitted with Cellulitis of the right foot status post debridement on 08/01/18 and again today with amputation of the right fifth toe. Nick has a history of DM last A1C 8.4 and significant cardiovascular disease. P:Nick is receiving IV antibiotics and continued wound management. Podiatry and hospitalist managing patient. Nick will be discharged home when medically ready with new home health services for nursing, wound management. He will need a face to face completed. Provider to contact [facility] vascular for follow up and recommendations. CM to continue to provide support to pt ongoing discharge planning and disposition.
--- NOTE | 2018-08-08 14:27 | CMPROGNOTE_ITS ---
- If Service Date Differs Date of service: 08/08/18 Time of Service: 14:19 Care Management Progress Note S/O: Nick does not want to be transferred to [facility] for vascular. He remains acute at this time. will be covering over the weekend. Nick would like home health services nursing for wound care. CM faxed referral to [facility]. A: Nick is a 73 year old male admitted with Cellulitis of the right foot status post debridement on 08/01/18 and again today with amputation of the right fifth toe. Nick has a history of DM last A1C 8.4 and significant cardiovascular disease. P:Nick is receiving IV antibiotics and continued wound management. Podiatry and hospitalist managing patient. Nick will be discharged home when medically ready with new home health services for nursing, wound management. He will need a face to face completed. Provider to contact [facility] [place] [facility] vascular for follow up and recommendations. CM to continue to provide support to pt ongoing discharge planning and disposition.
[2018-08-08] MEDS: Normal Saline 500 ML 200 ML IV (14:57)
[2018-08-08] MEDS: Normal Saline Flush 10 ML SYR IVP (16:49)
[2018-08-08 17:13] VITALS: BP 165/65; PULSE 74; RESP 20; TEMP 36.9; O2SAT 95
--- NOTE | 2018-08-08 18:36 | PGE_ITS ---
Date of Service Date of service: 08/08/18 Time of Service: 18:31 Assessment and Plan (1) Cellulitis of right foot: Current visit: Yes Status: Acute The cellulitis appears to be under adequate control. Wound cultures are growing enterococcus. Patient is allergic to penicillin. Will continue on vancomycin and discontinue the cefepime. Further sensitivities are pending. (2) Diabetes mellitus type 2: Current visit: Yes Status: Chronic Blood sugars have been adequately controlled here. Continue present medications. (3) Peripheral arterial disease: Current visit: Yes Status: Chronic We discussed referral to vascular surgery at [facility]. At this point the patient is having no pain or claudication. ABIs are done and moderately abnormal. The patient elected to hold on referral to vascular surgery at this time. (4) Discharge planning issues: Current visit: Yes Status: Acute Patient continues as a full code. Maintain an acute care status. Subjective Interval history since last seen: Patient feels well. His notes he had some sweats overnight. No recorded fever. He says he does have a cold. He has a minor cough and some yellowish sputum. He is not having any pain of his right foot. He has been up walking on it and ambulating without difficulty. Appetite remains good. Exam Narrative Exam Narrative: On exam he was pleasant and in no apparent distress he was able to go from supine to sitting upright without difficulty his lung exam sounded completely clear on the right and left heart sounds muffled but regular abdomen markedly obese but nontender at the right foot is bandaged as it came out of the OR. There is no evidence of any bleeding or leakage. He has some minor eczema along the medial portion of the right foot and left ankle that appears stable. No surrounding erythema Objective Objective Clinical Data: Abnormal lab results 08/08/18 08/08/18 Range/Units 06:51 06:51 RBC 3.68 L (4.50-6.00) m/cumm Hgb 10.2 L (13.5-17.5) g/dL Hct 30.5 L (40.0-50.0) % Plt Count 128 L (130-400) x1000/uL Absolute Lymphocytes 0.92 L (1.2-3.4) k/cumm Absolute Monocytes 0.81 H (0.11-0.7) k/cumm Glucose 174 H (70-100) mg/dL Calcium 8.3 L (8.5-10.1) mg/dL C-Reactive Protein 14.84 H (0.0-0.3) mg/dL Vital Signs Temperature 36.9 C 08/08/18 17:13 Temperature Source Tympanic 08/08/18 17:13 Pulse 74 08/08/18 17:13 Pulse Rhythm Irregular 08/07/18 23:55 Pulse 79 08/07/18 08:17 Respiratory Rate 20 08/08/18 17:13 Respiratory Effort 08/07/18 23:55 Respiratory Depth Normal 08/07/18 23:55 Respiratory Pattern Normal 08/07/18 23:55 Blood Pressure 165/65 H 08/08/18 17:13 Blood Pressure Position Sitting 08/04/18 09:24 Pulse Oximetry 95 08/08/18 17:13 Oxygen Delivery Method Room Air 08/08/18 17:13 Oxygen Flow Rate 0 08/08/18 17:13 Pain Level 0 08/08/18 07:42 Comment 08/05/18 10:00 Intake & Output 08/07/18 08/08/18 08/08/18 23:59 11:59 23:59 Intake Total 1201.45 / 1551.45 2882.0 / 3948.666 1066.666 / 3948.666 Output Total 2325 / 3325 1200 / 1700 500 / 1700 Balance -1123.55 / -1773.55 1682.0 / 2248.666 566.666 / 2248.666 Weight 135.5 kg 131.9 kg Intake: IV 321.45 / 671.45 1292.0 / 1568.666 276.666 / 1568.666 Oral 880 / 880 1590 / 2380 790 / 2380 Output: Urine 2325 / 3325 1200 / 1700 500 / 1700 Other: Urine Color Yellow Yellow Yellow Urine Appearance Clear Clear Clear Urine Odor Strong None None Comment total from 3 voids Void x1 in the urinal. Void x1 in the urinal. Voiding Methods Urinal Urinal Urinal Laboratory Results WBC 5.01 k/cumm (4.4-10.8) 08/08/18 06:51 RBC 3.68 m/cumm (4.50-6.00) L 08/08/18 06:51 Hgb 10.2 g/dL (13.5-17.5) L 08/08/18 06:51 Hct 30.5 % (40.0-50.0) L 08/08/18 06:51 MCV 82.9 fL (80-95) 08/08/18 06:51 MCH 27.7 pg (27.0-33.0) 08/08/18 06:51 MCHC 33.4 g/dL (32.0-36.0) 08/08/18 06:51 RDW 14.1 % (11.8-14.1) 08/08/18 06:51 Plt Count 128 x1000/uL (130-400) L 08/08/18 06:51 MPV 10.4 fL (8.0-11.0) 08/08/18 06:51 Immature Gran % 0.2 08/08/18 06:51 Neutrophils % 60.4 08/08/18 06:51 Lymphocytes % 18.4 08/08/18 06:51 Monocytes % 16.2 08/08/18 06:51 Eosinophils % 4.4 08/08/18 06:51 Basophils % 0.4 08/08/18 06:51 Absolute Neutrophils 3.03 k/cumm (1.2-6.7) 08/08/18 06:51 Absolute Lymphocytes 0.92 k/cumm (1.2-3.4) L 08/08/18 06:51 Absolute Monocytes 0.81 k/cumm (0.11-0.7) H 08/08/18 06:51 Absolute Eosinophils 0.22 k/cumm (0.0-0.7) 08/08/18 06:51 Absolute Basophils 0.02 k/cumm (0.0-0.2) 08/08/18 06:51 Sodium 136 mmol/L (136-145) 08/08/18 06:51 Potassium 3.7 mmol/L (3.5-5.1) 08/08/18 06:51 Chloride 100 mmol/L (98-107) 08/08/18 06:51 Carbon Dioxide 25.6 mmol/L (21.0-32.0) 08/08/18 06:51 Anion Gap 10.4 mmol/L (3-11) 08/08/18 06:51 BUN 18 mg/dL (7-18) 08/08/18 06:51 Creatinine 1.26 mg/dL (0.70-1.30) 08/08/18 06:51 Estimated GFR/1.73 m2 55.94 (mL/min/1.73m2) 08/08/18 06:51 Glucose 174 mg/dL (70-100) H 08/08/18 06:51 Hemoglobin A1c 8.4 % (4.5-6.2) H 08/05/18 06:45 Lactate 1.3 mmol/l (0.6-1.4) 08/04/18 09:50 Calcium 8.3 mg/dL (8.5-10.1) L 08/08/18 06:51 Total Bilirubin 1.0 mg/dL (0.2-1.0) 08/04/18 09:50 AST 20 U/L (15-37) 08/04/18 09:50 ALT 19 U/L (12-78) 08/04/18 09:50 Alkaline Phosphatase 115 U/L (46-116) 08/04/18 09:50 C-Reactive Protein 14.84 mg/dL (0.0-0.3) H 08/08/18 06:51 Total Protein 7.2 g/dL (6.4-8.2) 08/04/18 09:50 Albumin 3.2 g/dL (3.4-5.0) L 08/04/18 09:50 Vancomycin Trough 15.4 ug/mL (10.0-20.0) 08/07/18 12:53
[2018-08-08 20:53] VITALS: BP 144/77; PULSE 75; RESP 17; TEMP 37.7; O2SAT 96
[2018-08-08] MEDS: Insulin Glargine 300 UNITS/3 ML PEN 60 UNITS SC (21:14)
[2018-08-08 23:16] VITALS: BP 146/82; PULSE 70; RESP 17; TEMP 36.8; O2SAT 95
[2018-08-09] MEDS: HYDROcodone 5/Acetaminophen 325 TAB PO ×3 (00:10→23:00)
[2018-08-09] MEDS: Normal Saline Flush 10 ML SYR IVP ×2 (02:21→13:55)
[2018-08-09] MEDS: Levothyroxine 50 MCG TAB PO (05:20)
[2018-08-09 07:36] VITALS: BP 166/77; PULSE 70; RESP 18; TEMP 36.1; O2SAT 96
[2018-08-09] MEDS: Insulin Aspart 300 UNITS/3 ML PEN 10 UNITS SC ×3 (08:29→17:34)
[2018-08-09] MEDS: Timolol 0.5% 5 ML BTL OD ×2 (08:29→19:41)
[2018-08-09] MEDS: Furosemide 20 MG TAB PO (08:30)
[2018-08-09] MEDS: Aspirin E.C. 81 MG TABEC PO (08:30)
[2018-08-09] MEDS: Apixaban 5 MG TAB PO ×2 (08:30→19:40)
[2018-08-09] MEDS: Lisinopril 10 MG TAB 30 MG PO (08:30)
[2018-08-09] MEDS: Metoprolol 25 MG TAB PO ×2 (08:30→19:40)
[2018-08-09] MEDS: Atorvastatin 20 MG TAB 40 MG PO (08:30)
[2018-08-09 09:15] VITALS: O2SAT 98
--- NOTE | 2018-08-09 10:47 | W.PM.PROGNOT ---
Date of Service Date of service: 08/09/18 Time of Service: 10:47 Assessment and Plan (1) Cellulitis of right foot: Current visit: Yes Status: Acute A\\ POD #2 s/p 5th toe amputation and 4th toe abscess drainage. P\\ Continue with dressing changes Bid. Consider hydrogel dressing to help with debridement and healing. Subjective Interval history since last seen: Mr. Stapleton is a pleasant 73 year old s/p fifth toe amputation by Dr. Trujillo on . The patient is doing well. He has had no issues. His pain is well controlled on po pain meds. He has been afebrile. Exam Extrem Ankle/foot/toe images: 1. fifth toe amputated. Wound is clean and dry. No discharge. Dressing changed 2. 4th toe- packing removed and replaced. Wound looks clean and dry. Objective Objective Clinical Data: Vital Signs Temperature 97.0 F L 08/09/18 07:36 Temperature Source Tympanic 08/09/18 07:36 Pulse 70 08/09/18 07:36 Pulse Rhythm Regular 08/08/18 20:55 Pulse 79 08/07/18 08:17 Respiratory Rate 18 08/09/18 07:36 Respiratory Effort Non-Labored 08/08/18 20:55 Respiratory Depth Normal 08/08/18 20:55 Respiratory Pattern Normal 08/08/18 20:55 Blood Pressure 166/77 H 08/09/18 07:36 Blood Pressure Position Sitting 08/04/18 09:24 Pulse Oximetry 96 08/09/18 07:36 Oxygen Delivery Method Room Air 08/09/18 07:36 Oxygen Flow Rate 0 08/09/18 07:36 Pain Level 5 08/09/18 09:38 Comment 08/05/18 10:00 Intake & Output 08/08/18 08/08/18 08/09/18 11:59 23:59 11:59 Intake Total 2882.0 / 4498.666 1616.666 / 4498.666 1110 / 1110 Output Total 1200 / 2800 1600 / 2800 1350 / 1350 Balance 1682.0 / 1698.666 16.666 / 1698.666 -240 / -240 Weight 290 lb 12.635 oz 289 lb 0.416 oz Intake: IV 1292.0 / 1578.666 286.666 / 1578.666 220 / 220 Oral 1590 / 2920 1330 / 2920 890 / 890 Output: Urine 1200 / 2800 1600 / 2800 1350 / 1350 Other: Urine Color Yellow Yellow Pale Yellow Urine Appearance Clear Clear Clear Urine Odor None None None Comment Void x1 in the urinal. Void x1 in the urinal. Voiding Methods Urinal Urinal Urinal Laboratory Results WBC 5.01 k/cumm (4.4-10.8) 08/08/18 06:51 RBC 3.68 m/cumm (4.50-6.00) L 08/08/18 06:51 Hgb 10.2 g/dL (13.5-17.5) L 08/08/18 06:51 Hct 30.5 % (40.0-50.0) L 08/08/18 06:51 MCV 82.9 fL (80-95) 08/08/18 06:51 MCH 27.7 pg (27.0-33.0) 08/08/18 06:51 MCHC 33.4 g/dL (32.0-36.0) 08/08/18 06:51 RDW 14.1 % (11.8-14.1) 08/08/18 06:51 Plt Count 128 x1000/uL (130-400) L 08/08/18 06:51 MPV 10.4 fL (8.0-11.0) 08/08/18 06:51 Immature Gran % 0.2 08/08/18 06:51 Neutrophils % 60.4 08/08/18 06:51 Lymphocytes % 18.4 08/08/18 06:51 Monocytes % 16.2 08/08/18 06:51 Eosinophils % 4.4 08/08/18 06:51 Basophils % 0.4 08/08/18 06:51 Absolute Neutrophils 3.03 k/cumm (1.2-6.7) 08/08/18 06:51 Absolute Lymphocytes 0.92 k/cumm (1.2-3.4) L 08/08/18 06:51 Absolute Monocytes 0.81 k/cumm (0.11-0.7) H 08/08/18 06:51 Absolute Eosinophils 0.22 k/cumm (0.0-0.7) 08/08/18 06:51 Absolute Basophils 0.02 k/cumm (0.0-0.2) 08/08/18 06:51 Sodium 136 mmol/L (136-145) 08/08/18 06:51 Potassium 3.7 mmol/L (3.5-5.1) 08/08/18 06:51 Chloride 100 mmol/L (98-107) 08/08/18 06:51 Carbon Dioxide 25.6 mmol/L (21.0-32.0) 08/08/18 06:51 Anion Gap 10.4 mmol/L (3-11) 08/08/18 06:51 BUN 18 mg/dL (7-18) 08/08/18 06:51 Creatinine 1.26 mg/dL (0.70-1.30) 08/08/18 06:51 Estimated GFR/1.73 m2 55.94 (mL/min/1.73m2) 08/08/18 06:51 Glucose 174 mg/dL (70-100) H 08/08/18 06:51 Hemoglobin A1c 8.4 % (4.5-6.2) H 08/05/18 06:45 Lactate 1.3 mmol/l (0.6-1.4) 08/04/18 09:50 Calcium 8.3 mg/dL (8.5-10.1) L 08/08/18 06:51 Total Bilirubin 1.0 mg/dL (0.2-1.0) 08/04/18 09:50 AST 20 U/L (15-37) 08/04/18 09:50 ALT 19 U/L (12-78) 08/04/18 09:50 Alkaline Phosphatase 115 U/L (46-116) 08/04/18 09:50 C-Reactive Protein 14.84 mg/dL (0.0-0.3) H 08/08/18 06:51 Total Protein 7.2 g/dL (6.4-8.2) 08/04/18 09:50 Albumin 3.2 g/dL (3.4-5.0) L 08/04/18 09:50 Vancomycin Trough 15.4 ug/mL (10.0-20.0) 08/07/18 12:53
[2018-08-09] MEDS: Insulin Aspart 300 UNITS/3 ML PEN SC ×2 (11:59→17:34)
[2018-08-09] MEDS: Normal Saline 500 ML 200 ML IV (13:55)
--- NOTE | 2018-08-09 15:17 | W.PM.PROGNOT ---
Date of Service Date of service: 08/09/18 Time of Service: 15:17 Assessment and Plan (1) Cellulitis of right foot: Current visit: Yes Status: Acute Post-op wound infection in diabetic patient - initially on Vancomycin and Cefepime, narrowed to Vanc now day #5. Patient is also s/p surgical debridement with washout of wound on 4th digit and amputation of the 5th. Blood Cultures remain negative. Continue to monitor culture results - currently with Staph Lugdenensis from wound cultures from 08/07, and staph and enterococcus from wound cultures on 08/06. Continue to await finalization of culture results, and discuss with ID regarding type and duration of therapy. Penicillin allergy noted. (2) Atrial fibrillation: Current visit: Yes Status: Chronic Continue BB, anticoagulation with Apixaban. (3) Peripheral arterial disease: Current visit: Yes Status: Chronic Will recommend outpatient follow-up. (4) Hypothyroidism: Current visit: Yes Status: Chronic Continue replacement therapy. (5) Diabetes mellitus type 2: Current visit: Yes Status: Chronic Continue basal insulin, sliding scale coverage. (6) Coronary arteriosclerosis: Current visit: No Status: Chronic CAD with reported prior revascularization. Continue BB, ASA, Statin. Appears quiescent. (7) DVT prophylaxis: Current visit: Yes Status: Acute On chronic anticoagulation with Apixaban. (8) Advance directive on file: Current visit: Yes Status: Acute Full Code. Subjective Interval history since last seen: 73 year old man with a history significant for DM and PVD, admitted from [facility] Emergency Department on 08/04 with a diagnosis of Cellulitis. Mr. Stapleton has a prior medical history significant for DM, PVD, CKD, Afib on AC, and CAD. His diabetes has not been well controlled. He initially presented to the ED from the [employer]'s office with note of of right foot cellulitis. The patient initially underwent surgical intervention the prior week on his fourth and fifth digits for Hammertoe deformities causing chronic skin ulcerations. Following the surgery he noted some increased swelling of his right leg and increasing discomfort of his foot. He was seen for a routine postop follow-up on the day of his admission, where he was noted to have of cellulitis. He was sent to the emergency room for admission following blood cultures and administration of antibiotics. Following admission the patient underwent surgical intervention with a washout of the prior surgical incision site, with debridement of the 4th and amputation of the 5th right digit. Wound cultures from 08/06 show evidence of staph and enterococcus species, and Staph Lugdenensis on 08/07. Antibiotics have been narrowed to Vancomycin. This morning the patient has no complaints. Wound appears to be healing well and improved appearing per staff. No overnight events reported. Remains afebrile. Exam Narrative Exam Narrative: General: Patient appears comfortable, AAOX3, NAD Neck: Supple CV: Regular, nontachycardic, S1S2, No rubs, murmurs, or gallops. Pulmonary: Clear to auscultation bilaterally, no crackles, wheezing, or rhonchi Abdomen: + Bowel Sounds, soft, nontender, nondistended Vascular: 1-2 + b/l LE edema. Chronic hyperpigmentation of skin noted bilaterally. Psych: Normal mood and affect. Objective Objective Clinical Data: Vital Signs Temperature 36.1 C L 08/09/18 07:36 Temperature Source Tympanic 08/09/18 07:36 Pulse 70 08/09/18 07:36 Pulse Rhythm Regular 08/09/18 07:32 Pulse 79 08/07/18 08:17 Respiratory Rate 18 08/09/18 07:36 Respiratory Effort Non-Labored 08/09/18 07:32 Respiratory Depth Normal 08/09/18 07:32 Respiratory Pattern Normal 08/09/18 07:32 Blood Pressure 166/77 H 08/09/18 07:36 Blood Pressure Position Sitting 08/04/18 09:24 Pulse Oximetry 98 08/09/18 09:15 Oxygen Delivery Method Room Air 08/09/18 09:15 Oxygen Flow Rate 0 08/09/18 09:15 Pain Level 5 08/09/18 09:38 Comment 08/05/18 10:00 Intake & Output 08/08/18 08/09/18 08/09/18 23:59 11:59 23:59 Intake Total 1616.666 / 4498.666 1110 / 1663.333 553.333 / 1663.333 Output Total 1600 / 2800 1350 / 1850 500 / 1850 Balance 16.666 / 1698.666 -240 / -186.667 53.333 / -186.667 Weight 131.1 kg Intake: IV 286.666 / 1578.666 220 / 223.333 3.333 / 223.333 Oral 1330 / 2920 890 / 1440 550 / 1440 Output: Urine 1600 / 2800 1350 / 1850 500 / 1850 Other: Urine Color Yellow Pale Yellow Yellow Urine Appearance Clear Clear Clear Urine Odor None None None Comment Void x1 in the urinal. Void x1 in the urinal. Voiding Methods Urinal Urinal Urinal Laboratory Results WBC 5.01 k/cumm (4.4-10.8) 08/08/18 06:51 RBC 3.68 m/cumm (4.50-6.00) L 08/08/18 06:51 Hgb 10.2 g/dL (13.5-17.5) L 08/08/18 06:51 Hct 30.5 % (40.0-50.0) L 08/08/18 06:51 MCV 82.9 fL (80-95) 08/08/18 06:51 MCH 27.7 pg (27.0-33.0) 08/08/18 06:51 MCHC 33.4 g/dL (32.0-36.0) 08/08/18 06:51 RDW 14.1 % (11.8-14.1) 08/08/18 06:51 Plt Count 128 x1000/uL (130-400) L 08/08/18 06:51 MPV 10.4 fL (8.0-11.0) 08/08/18 06:51 Immature Gran % 0.2 08/08/18 06:51 Neutrophils % 60.4 08/08/18 06:51 Lymphocytes % 18.4 08/08/18 06:51 Monocytes % 16.2 08/08/18 06:51 Eosinophils % 4.4 08/08/18 06:51 Basophils % 0.4 08/08/18 06:51 Absolute Neutrophils 3.03 k/cumm (1.2-6.7) 08/08/18 06:51 Absolute Lymphocytes 0.92 k/cumm (1.2-3.4) L 08/08/18 06:51 Absolute Monocytes 0.81 k/cumm (0.11-0.7) H 08/08/18 06:51 Absolute Eosinophils 0.22 k/cumm (0.0-0.7) 08/08/18 06:51 Absolute Basophils 0.02 k/cumm (0.0-0.2) 08/08/18 06:51 Sodium 136 mmol/L (136-145) 08/08/18 06:51 Potassium 3.7 mmol/L (3.5-5.1) 08/08/18 06:51 Chloride 100 mmol/L (98-107) 08/08/18 06:51 Carbon Dioxide 25.6 mmol/L (21.0-32.0) 08/08/18 06:51 Anion Gap 10.4 mmol/L (3-11) 08/08/18 06:51 BUN 18 mg/dL (7-18) 08/08/18 06:51 Creatinine 1.26 mg/dL (0.70-1.30) 08/08/18 06:51 Estimated GFR/1.73 m2 55.94 (mL/min/1.73m2) 08/08/18 06:51 Glucose 174 mg/dL (70-100) H 08/08/18 06:51 Hemoglobin A1c 8.4 % (4.5-6.2) H 08/05/18 06:45 Lactate 1.3 mmol/l (0.6-1.4) 08/04/18 09:50 Calcium 8.3 mg/dL (8.5-10.1) L 08/08/18 06:51 Total Bilirubin 1.0 mg/dL (0.2-1.0) 08/04/18 09:50 AST 20 U/L (15-37) 08/04/18 09:50 ALT 19 U/L (12-78) 08/04/18 09:50 Alkaline Phosphatase 115 U/L (46-116) 08/04/18 09:50 C-Reactive Protein 14.84 mg/dL (0.0-0.3) H 08/08/18 06:51 Total Protein 7.2 g/dL (6.4-8.2) 08/04/18 09:50 Albumin 3.2 g/dL (3.4-5.0) L 08/04/18 09:50 Vancomycin Trough 15.4 ug/mL (10.0-20.0) 08/07/18 12:53
[2018-08-09 16:31] VITALS: BP 119/88; PULSE 84; RESP 20; TEMP 36.3; O2SAT 96
--- NOTE | 2018-08-09 16:46 | PDOC.CMPRO ---
Care Management Progress Note S/O: Nick does not [place] [facility] [place]. He remains acute at this time. examined him today. Nick would like home health services nursing for wound care and referral was faxed yesterday. A: Nick is a 73 year old male admitted with Cellulitis of the right foot status post debridement on 08/01/18 and again today with amputation of the right fifth toe. Nick has a history of DM last A1C 8.4 and significant cardiovascular disease. P:Nick is receiving IV antibiotics and continued wound management. Podiatry and hospitalist managing patient. Nick will be discharged home when medically ready with new home health services for nursing, wound management. He will need a face to face completed. Provider to contact [facility] [place] follow up and recommendations.
[2018-08-09] MEDS: Refresh PLUS Eye Drops 0.4ml OS (20:00)
[2018-08-09 20:22] VITALS: BP 144/89; PULSE 66; RESP 17; TEMP 37.2; O2SAT 96
[2018-08-09] MEDS: Insulin Glargine 300 UNITS/3 ML PEN 60 UNITS SC (21:42)
[2018-08-10] MEDS: Normal Saline Flush 10 ML SYR IVP ×3 (01:57→16:10)
[2018-08-10 01:58] VITALS: BP 147/83; PULSE 61; RESP 16; TEMP 36.4; O2SAT 96
[2018-08-10] MEDS: Levothyroxine 50 MCG TAB PO (06:30)
[2018-08-10 07:26] LABS: Abs Immature Grans 0.02 k/cumm (0.0-0.09); Absolute Basophil Count 0.01 k/cumm (0.0-0.2); Absolute Eosinophil Count 0.26 k/cumm (0.0-0.7); Absolute Lymphocyte Count 1.06 k/cumm (1.2-3.4); Absolute Monocyte Count 0.63 k/cumm (0.11-0.7); Absolute Neutrophil Count 3.62 k/cumm (1.2-6.7); Basophils % 0.2; Eosinophils % 4.6; HCT 32.6 % (40.0-50.0); HGB 10.8 g/dL (13.5-17.5); Immature Grans % 0.4; Lymphocytes % 18.9; Mean Corp. HGB Concentration 33.1 g/dL (32.0-36.0); Mean Corpuscular Hemoglobin 27.7 pg (27.0-33.0); Mean Corpuscular Volume 83.6 fL (80-95); Mean Platelet Volume 10.2 fL (8.0-11.0); Monocytes % 11.3; Neutrophils % 64.6; Platelet Count 141 x1000/uL (130-400); RBC Distribution Width 13.9 % (11.8-14.1)
[2018-08-10 07:42] VITALS: BP 177/92; PULSE 69; RESP 18; TEMP 36.7; O2SAT 99
[2018-08-10 07:42] LABS: BUN 16 mg/dL (7-18); C-Reactive Protein 8.93 mg/dL (0.0-0.3); CREATININE 1.21 mg/dL (0.70-1.30); Calcium 8.6 mg/dL (8.5-10.1); Chloride 101 mmol/L (98-107); Estimated GFR 58.62 (mL/min/1.73m2); Glucose 182 mg/dL (70-100); Magnesium 1.8 mg/dL (1.8-2.4); Potassium 4.1 mmol/L (3.5-5.1); Sodium 135 mmol/L (136-145)
[2018-08-10] MEDS: Timolol 0.5% 5 ML BTL OD ×2 (09:00→19:51)
[2018-08-10] MEDS: Lisinopril 10 MG TAB 30 MG PO (09:01)
[2018-08-10] MEDS: Apixaban 5 MG TAB PO ×2 (09:01→19:48)
[2018-08-10] MEDS: Aspirin E.C. 81 MG TABEC PO (09:01)
[2018-08-10] MEDS: Atorvastatin 20 MG TAB 40 MG PO (09:01)
[2018-08-10] MEDS: Metoprolol 25 MG TAB PO ×2 (09:01→19:48)
[2018-08-10] MEDS: Furosemide 20 MG TAB PO (09:01)
[2018-08-10] MEDS: Insulin Aspart 300 UNITS/3 ML PEN SC ×3 (09:02→17:48)
[2018-08-10] MEDS: Insulin Aspart 300 UNITS/3 ML PEN 10 UNITS SC ×3 (09:02→17:47)
[2018-08-10 11:25] VITALS: BP 176/101; PULSE 61; RESP 17; TEMP 36.4; O2SAT 97
[2018-08-10 11:43] VITALS: BP 175/93; PULSE 66
[2018-08-10 13:28] LABS: Vancomycin, Trough 15.7 ug/mL (10.0-20.0)
--- NOTE | 2018-08-10 14:23 | PGE_ITS ---
Date of Service Date of service: 08/10/18 Time of Service: 14:18 Assessment and Plan (1) Cellulitis of right foot: Current visit: Yes Status: Acute Post-op wound infection in diabetic patient - initially on Vancomycin and Cefepime, narrowed to Vanc now day #6. Patient is also s/p surgical debridement with washout of wound on 4th digit and amputation of the 5th. Blood Cultures remain negative. Culture results with Staph Lugdenensis from wound cultures from 08/07, and staph Lugdenensis and a pansensitive Enterococcus species from wound cultures on 08/06. Discussed with ID regarding type and duration of therapy - recommendations for change to oral Cephalexin. Penicillin allergy noted - patient has tolerated Cephalosporin therapy in the past in the form of Cefazolin. Will also discuss with Podiatry - if wound was initially clean and no concern for Osteo, can likely conclude a total 7-10 day course of antibiotics. If the wound was open or there is concern for osteo, then will require longer duration of therapy. (2) Atrial fibrillation: Current visit: Yes Status: Chronic Continue BB, anticoagulation with Apixaban. (3) Peripheral arterial disease: Current visit: Yes Status: Chronic Will recommend outpatient follow-up. (4) Hypothyroidism: Current visit: Yes Status: Chronic Continue replacement therapy. (5) Diabetes mellitus type 2: Current visit: Yes Status: Chronic Continue basal insulin, sliding scale coverage. (6) Coronary arteriosclerosis: Current visit: No Status: Chronic CAD with reported prior revascularization. Continue BB, ASA, Statin. Appears quiescent. (7) DVT prophylaxis: Current visit: No Status: Acute On chronic anticoagulation with Apixaban. (8) Advance directive on file: Current visit: No Status: Acute Full Code. Subjective Interval history since last seen: 73 year old man with a history significant for DM and PVD, admitted from [facility] Emergency Department on 08/04 with a diagnosis of Cellulitis. Mr. Stapleton has a prior medical history significant for DM, PVD, CKD, Afib on AC, and CAD. His diabetes has not been well controlled. He initially presented to the ED from the [employer]'s office with note of of right foot cellulitis. The patient initially underwent surgical intervention the prior week on his fourth and fifth digits for Hammertoe deformities causing chronic skin ulcerations. Following the surgery he noted some increased swelling of his right leg and increasing discomfort of his foot. He was seen for a routine postop follow-up on the day of his admission, where he was noted to have of cellulitis of the effected foot. He was sent to the ED for admission following blood cultures and administration of antibiotics. Following admission the patient underwent surgical intervention with a washout of the prior surgical incision site, with debridement of the 4th and amputation of the 5th right digit. Wound cultures from 08/06 show evidence of staph Lugdenensis and an enterococcus species, and Staph Lugdenensis on 08/07 from surgical cultures. Antibiotics were narrowed to Vancomycin. This morning the patient has no complaints. Wound appears to be healing well and improved appearing per staff. No overnight events reported. Remains afebrile. Exam Narrative Exam Narrative: General: Patient appears comfortable, AAOX3, NAD Neck: Supple CV: Regular, nontachycardic, S1S2, No rubs, murmurs, or gallops. Pulmonary: Clear to auscultation bilaterally, no crackles, wheezing, or rhonchi Abdomen: + Bowel Sounds, soft, nontender, nondistended Vascular: 1-2 + b/l LE edema. Chronic hyperpigmentation of skin noted bilaterally. Musc: Right foot with bandage in place - appears c/d/i Psych: Normal mood and affect. Objective Objective Clinical Data: Abnormal lab results 08/10/18 08/10/18 Range/Units 06:22 06:22 RBC 3.90 L (4.50-6.00) m/cumm Hgb 10.8 L (13.5-17.5) g/dL Hct 32.6 L (40.0-50.0) % Absolute Lymphocytes 1.06 L (1.2-3.4) k/cumm Sodium 135 L (136-145) mmol/L Glucose 182 H (70-100) mg/dL C-Reactive Protein 8.93 H (0.0-0.3) mg/dL Vital Signs Temperature 36.4 C L 08/10/18 11:25 Temperature Source Skin 08/10/18 11:25 Pulse 66 08/10/18 11:43 Pulse Rhythm Regular 08/09/18 20:31 Pulse 79 08/07/18 08:17 Respiratory Rate 17 08/10/18 11:25 Respiratory Effort Non-Labored 08/09/18 20:31 Respiratory Depth Normal 08/09/18 20:31 Respiratory Pattern Normal 08/09/18 20:31 Blood Pressure 175/93 H 08/10/18 11:43 Blood Pressure Position Sitting 08/04/18 09:24 Pulse Oximetry 97 08/10/18 11:25 Oxygen Delivery Method Room Air 08/10/18 11:25 Oxygen Flow Rate 0 08/10/18 11:25 Pain Level 0 08/10/18 11:43 Comment 08/10/18 11:25 Intake & Output 08/09/18 08/10/18 08/10/18 23:59 11:59 23:59 Intake Total 2143.333 / 3253.333 2010 / 2250 240 / 2250 Output Total 1250 / 2600 2360 / 2360 Balance 893.333 / 653.333 -350 / -110 240 / -110 Weight 131 kg Intake: IV 263.333 / 483.333 220 / 220 Oral 1880 / 2770 179 / 2030 240 / 2030 Output: Urine 1250 / 2600 2360 / 2360 Other: Urine Color Yellow Yellow Urine Appearance Clear Clear Urine Odor None None Comment Void x1 in the urinal. Void x1 in the urinal. Voiding Methods Urinal Urinal Laboratory Results WBC 5.60 k/cumm (4.4-10.8) 08/10/18 06:22 RBC 3.90 m/cumm (4.50-6.00) L 08/10/18 06:22 Hgb 10.8 g/dL (13.5-17.5) L 08/10/18 06:22 Hct 32.6 % (40.0-50.0) L 08/10/18 06:22 MCV 83.6 fL (80-95) 08/10/18 06:22 MCH 27.7 pg (27.0-33.0) 08/10/18 06:22 MCHC 33.1 g/dL (32.0-36.0) 08/10/18 06:22 RDW 13.9 % (11.8-14.1) 08/10/18 06:22 Plt Count 141 x1000/uL (130-400) 08/10/18 06:22 MPV 10.2 fL (8.0-11.0) 08/10/18 06:22 Immature Gran % 0.4 08/10/18 06:22 Neutrophils % 64.6 08/10/18 06:22 Lymphocytes % 18.9 08/10/18 06:22 Monocytes % 11.3 08/10/18 06:22 Eosinophils % 4.6 08/10/18 06:22 Basophils % 0.2 08/10/18 06:22 Absolute Neutrophils 3.62 k/cumm (1.2-6.7) 08/10/18 06:22 Absolute Lymphocytes 1.06 k/cumm (1.2-3.4) L 08/10/18 06:22 Absolute Monocytes 0.63 k/cumm (0.11-0.7) 08/10/18 06:22 Absolute Eosinophils 0.26 k/cumm (0.0-0.7) 08/10/18 06:22 Absolute Basophils 0.01 k/cumm (0.0-0.2) 08/10/18 06:22 Sodium 135 mmol/L (136-145) L 08/10/18 06:22 Potassium 4.1 mmol/L (3.5-5.1) 08/10/18 06:22 Chloride 101 mmol/L (98-107) 08/10/18 06:22 Carbon Dioxide 27.0 mmol/L (21.0-32.0) 08/10/18 06:22 Anion Gap 7.0 mmol/L (3-11) 08/10/18 06:22 BUN 16 mg/dL (7-18) 08/10/18 06:22 Creatinine 1.21 mg/dL (0.70-1.30) 08/10/18 06:22 Estimated GFR/1.73 m2 58.62 (mL/min/1.73m2) 08/10/18 06:22 Glucose 182 mg/dL (70-100) H 08/10/18 06:22 Hemoglobin A1c 8.4 % (4.5-6.2) H 08/05/18 06:45 Lactate 1.3 mmol/l (0.6-1.4) 08/04/18 09:50 Calcium 8.6 mg/dL (8.5-10.1) 08/10/18 06:22 Magnesium 1.8 mg/dL (1.8-2.4) 08/10/18 06:22 Total Bilirubin 1.0 mg/dL (0.2-1.0) 08/04/18 09:50 AST 20 U/L (15-37) 08/04/18 09:50 ALT 19 U/L (12-78) 08/04/18 09:50 Alkaline Phosphatase 115 U/L (46-116) 08/04/18 09:50 C-Reactive Protein 8.93 mg/dL (0.0-0.3) H 08/10/18 06:22 Total Protein 7.2 g/dL (6.4-8.2) 08/04/18 09:50 Albumin 3.2 g/dL (3.4-5.0) L 08/04/18 09:50 Vancomycin Trough 15.7 ug/mL (10.0-20.0) 08/10/18 13:04
[2018-08-10] MEDS: Normal Saline 500 ML 200 ML IV (14:43)
[2018-08-10 16:14] VITALS: BP 168/76; PULSE 68; RESP 19; TEMP 36.6; O2SAT 97
--- NOTE | 2018-08-10 16:56 | PDOC.CMPRO ---
Care Management Progress Note S/O: Nick still does not want to be transferred to [facility] for vascular. He remains acute at this time. He would like home health nursing for wound care and referral was faxed on Saturday08/08/18. A: 73 year old male admitted with Cellulitis of the right foot status post debridement on 08/01/18 and 08/08/18 with amputation of the right fifth toe. H/O DM last A1C 8.4 and significant cardiovascular disease. P:Nick is receiving IV antibiotics and continued wound management. Podiatry and hospitalist managing patient. Plan to be discharged home when medically ready with new home health services for nursing, wound management. He will need a face to face completed. Provider to contact [facility] vascular for follow up and recommendations.
--- NOTE | 2018-08-10 17:25 | CMPROGNOTE_ITS ---
Care Management Progress Note S/O: Nick still does not want to be transferred to [facility] for vascular. He remains acute at this time. He would like home health nursing for wound care and referral was faxed on Saturday08/08/18. A: 73 year old male admitted with Cellulitis of the right foot status post debridement on 08/01/18 and 08/08/18 with amputation of the right fifth toe. H/O DM last A1C 8.4 and significant cardiovascular disease. P:Nick is receiving IV antibiotics and continued wound management. Podiatry and hospitalist managing patient. Plan to be discharged home when medically ready with new home health services for nursing, wound management. He will need a face to face completed. Provider to contact [facility] vascular for follow up and recommendations.
[2018-08-10] MEDS: HYDROcodone 5/Acetaminophen 325 TAB PO (17:56)
[2018-08-10] MEDS: Acetaminophen 325 MG TAB 650 MG PO (17:57)
[2018-08-10] MEDS: Cephalexin 250 MG CAP 750 MG PO (19:48)
[2018-08-10 20:39] VITALS: BP 135/80; PULSE 67; RESP 16; TEMP 36.9; O2SAT 96
[2018-08-10] MEDS: Insulin Glargine 300 UNITS/3 ML PEN 60 UNITS SC (21:36)
[2018-08-11 02:22] VITALS: BP 169/64; PULSE 69; RESP 16; TEMP 35.9; O2SAT 97
[2018-08-11] MEDS: Levothyroxine 50 MCG TAB PO (06:43)
[2018-08-11 07:30] VITALS: BP 165/63; PULSE 67; RESP 14; TEMP 36.6; O2SAT 99
--- NOTE | 2018-08-11 07:42 | W.PM.PROGNOT ---
Date of Service Date of service: 08/11/18 Time of Service: 07:48 Subjective Patient reports: no new complaints Interval history since last seen: Hi is seen at bedside. He is resting comfortably in bed. He has no complaints of pain in his right foot. His vancomycin was discontinued yesterday and he is now on cephalexin 750 mg q. 8. Microbiology has identified staph lugdunesis and enterococcus faecalis organisms being susceptible to ampicillin?oxacillin products. Hi has a history of penicillin allergy although he shows no ill effect from the cephalexin at this moment. Exam Narrative Exam Narrative: Dressings are removed from his right foot packings are removed and the base of the wounds appear clean. The erythema and cellulitis are markedly resolved, his calves are soft to palpation without DVT. An area of eczema is noted at the distal medial aspect of his right leg which remains unchanged from previous exams. The fourth toe remains pink with good capillary return. Granulation is slow. Amputation site at the fifth MPJ does appear to be granulating in nicely. No undermining or sinus tracking noted. THAIS studies that were performed on 08/07/2018 showed a result greater than 0.8 in the right and 0.9 on the left side digital waveforms were not obtained Impressions 4 days status post washout of incisions with amputation of the right fifth toe, debridement of the right fourth toe Plan we will discontinue the packing tape. We will dressed the wound with a hydrogel at the base followed by 3 x 3 Kerlix dressings daily. If he continues to tolerate the p.o. antibiotics we should be able to get him discharged to home under home health in the near future. Discussed the case with the hospitalist. Appreciate Dr. Eden's rounding on Hi over the weekend Objective Objective Clinical Data: Abnormal lab results 08/10/18 Range/Units 06:22 Sodium 135 L (136-145) mmol/L Glucose 182 H (70-100) mg/dL C-Reactive Protein 8.93 H (0.0-0.3) mg/dL Vital Signs Temperature 36.6 C 08/11/18 07:30 Temperature Source Tympanic 08/11/18 07:30 Pulse 67 08/11/18 07:30 Pulse Rhythm Regular 08/10/18 20:41 Pulse 79 08/07/18 08:17 Respiratory Rate 14 08/11/18 07:30 Respiratory Effort Non-Labored 08/10/18 20:41 Respiratory Depth Normal 08/10/18 20:41 Respiratory Pattern Normal 08/10/18 20:41 Blood Pressure 165/63 H 08/11/18 07:30 Blood Pressure Position Sitting 08/04/18 09:24 Pulse Oximetry 99 08/11/18 07:30 Oxygen Delivery Method Room Air 08/11/18 07:30 Oxygen Flow Rate 0 08/11/18 07:30 Pain Level 7 08/10/18 17:57 Comment 08/10/18 11:25 Intake & Output 08/10/18 08/11/18 08/11/18 18:59 06:59 18:59 Intake Total 2103.333 / 2803.333 700 / 2803.333 Output Total 1200 / 3150 1950 / 3150 Balance 903.333 / -346.667 -1250 / -346.667 Weight 129.8 kg Intake: IV 283.333 / 283.333 Oral 1820 / 2520 700 / 2520 Output: Urine 1200 / 3150 1950 / 3150 Other: Urine Color Yellow Yellow Urine Appearance Clear Clear Urine Odor None Comment Void x1 in the urinal. Voiding Methods Urinal Urinal Laboratory Results WBC 5.60 k/cumm (4.4-10.8) 08/10/18 06:22 RBC 3.90 m/cumm (4.50-6.00) L 08/10/18 06:22 Hgb 10.8 g/dL (13.5-17.5) L 08/10/18 06:22 Hct 32.6 % (40.0-50.0) L 08/10/18 06:22 MCV 83.6 fL (80-95) 08/10/18 06:22 MCH 27.7 pg (27.0-33.0) 08/10/18 06:22 MCHC 33.1 g/dL (32.0-36.0) 08/10/18 06:22 RDW 13.9 % (11.8-14.1) 08/10/18 06:22 Plt Count 141 x1000/uL (130-400) 08/10/18 06:22 MPV 10.2 fL (8.0-11.0) 08/10/18 06:22 Immature Gran % 0.4 08/10/18 06:22 Neutrophils % 64.6 08/10/18 06:22 Lymphocytes % 18.9 08/10/18 06:22 Monocytes % 11.3 08/10/18 06:22 Eosinophils % 4.6 08/10/18 06:22 Basophils % 0.2 08/10/18 06:22 Absolute Neutrophils 3.62 k/cumm (1.2-6.7) 08/10/18 06:22 Absolute Lymphocytes 1.06 k/cumm (1.2-3.4) L 08/10/18 06:22 Absolute Monocytes 0.63 k/cumm (0.11-0.7) 08/10/18 06:22 Absolute Eosinophils 0.26 k/cumm (0.0-0.7) 08/10/18 06:22 Absolute Basophils 0.01 k/cumm (0.0-0.2) 08/10/18 06:22 Sodium 135 mmol/L (136-145) L 08/10/18 06:22 Potassium 4.1 mmol/L (3.5-5.1) 08/10/18 06:22 Chloride 101 mmol/L (98-107) 08/10/18 06:22 Carbon Dioxide 27.0 mmol/L (21.0-32.0) 08/10/18 06:22 Anion Gap 7.0 mmol/L (3-11) 08/10/18 06:22 BUN 16 mg/dL (7-18) 08/10/18 06:22 Creatinine 1.21 mg/dL (0.70-1.30) 08/10/18 06:22 Estimated GFR/1.73 m2 58.62 (mL/min/1.73m2) 08/10/18 06:22 Glucose 182 mg/dL (70-100) H 08/10/18 06:22 Hemoglobin A1c 8.4 % (4.5-6.2) H 08/05/18 06:45 Lactate 1.3 mmol/l (0.6-1.4) 08/04/18 09:50 Calcium 8.6 mg/dL (8.5-10.1) 08/10/18 06:22 Magnesium 1.8 mg/dL (1.8-2.4) 08/10/18 06:22 Total Bilirubin 1.0 mg/dL (0.2-1.0) 08/04/18 09:50 AST 20 U/L (15-37) 08/04/18 09:50 ALT 19 U/L (12-78) 08/04/18 09:50 Alkaline Phosphatase 115 U/L (46-116) 08/04/18 09:50 C-Reactive Protein 8.93 mg/dL (0.0-0.3) H 08/10/18 06:22 Total Protein 7.2 g/dL (6.4-8.2) 08/04/18 09:50 Albumin 3.2 g/dL (3.4-5.0) L 08/04/18 09:50 Vancomycin Trough 15.7 ug/mL (10.0-20.0) 08/10/18 13:04
[2018-08-11 08:10] LABS: Abs Immature Grans 0.03 k/cumm (0.0-0.09); Absolute Basophil Count 0.03 k/cumm (0.0-0.2); Absolute Lymphocyte Count 1.27 k/cumm (1.2-3.4); Absolute Monocyte Count 0.64 k/cumm (0.11-0.7); Absolute Neutrophil Count 4.64 k/cumm (1.2-6.7); Basophils % 0.4; Eosinophils % 4.3; HCT 35.2 % (40.0-50.0); HGB 11.7 g/dL (13.5-17.5); Immature Grans % 0.4; Lymphocytes % 18.4; Mean Corp. HGB Concentration 33.2 g/dL (32.0-36.0); Mean Corpuscular Hemoglobin 27.6 pg (27.0-33.0); Mean Platelet Volume 9.8 fL (8.0-11.0); Monocytes % 9.3; Neutrophils % 67.2; Platelet Count 168 x1000/uL (130-400); RBC 4.24 m/cumm (4.50-6.00); RBC Distribution Width 13.9 % (11.8-14.1); White Blood Cell Count 6.91 k/cumm (4.4-10.8)
[2018-08-11 08:25] LABS: Anion Gap 8.4 mmol/L (3-11); BUN 17 mg/dL (7-18); CO2 30.6 mmol/L (21.0-32.0); CREATININE 1.26 mg/dL (0.70-1.30); Calcium 8.8 mg/dL (8.5-10.1); Chloride 99 mmol/L (98-107); Estimated GFR 55.94 (mL/min/1.73m2); Glucose 196 mg/dL (70-100); Magnesium 1.8 mg/dL (1.8-2.4); Potassium 4.4 mmol/L (3.5-5.1); Sodium 138 mmol/L (136-145)
[2018-08-11] MEDS: Apixaban 5 MG TAB PO (08:42)
[2018-08-11] MEDS: Lisinopril 10 MG TAB 30 MG PO (08:42)
[2018-08-11] MEDS: Cephalexin 250 MG CAP 750 MG PO ×2 (08:42→13:58)
[2018-08-11] MEDS: Atorvastatin 20 MG TAB 40 MG PO (08:42)
[2018-08-11] MEDS: Furosemide 20 MG TAB PO (08:42)
[2018-08-11] MEDS: Metoprolol 25 MG TAB PO (08:42)
[2018-08-11] MEDS: Aspirin E.C. 81 MG TABEC PO (08:42)
[2018-08-11] MEDS: Insulin Aspart 300 UNITS/3 ML PEN 10 UNITS SC ×2 (08:43→12:08)
[2018-08-11] MEDS: Timolol 0.5% 5 ML BTL OD (08:43)
[2018-08-11] MEDS: Insulin Aspart 300 UNITS/3 ML PEN SC ×2 (08:44→12:08)
[2018-08-11] MEDS: Magnesium Oxide 400 MG TAB PO (10:09)
--- NOTE | 2018-08-11 10:21 | PDOC.CMDIS ---
- If Service Date Differs Date of service: 08/11/18 Time of Service: 10:21 LACE Index Scoring Tool - Questions: Length of Stay (in days): 7 - 13 Acuity (Admit via E.D.?): Yes Comorbidities: Previous M.I., Diabetes w/o Complication, Congestive Heart Failure, Mild Liver/Renal Disease Care Management Discharge Reason for Hospitalization: R foot cellulitis post arthroplasties of the right 4th and 5th digits on 08/01/18 Discharge Plan: Nick will be discharged home today with home health nursing for wound management. He will need a home health face to face completed. Nick will follow up with in one week for ongoing wound management. He will have oral antibiotics for 4 weeks as recomended by primary providers and infectious disease. Nick will need to wear his off loading shoe at all times when ambulating. Spouse will transport Nick home at time of discharge. Patient/Family Education Needs: Discharge education, limitations and follow up plan of care including ask me three and self management. Services Needed at Discharge: Home Health Care Services
--- NOTE | 2018-08-11 13:24 | W.PM.DS.N ---
Date of service: 08/11/18 Time of Service: 13:24 DS: Diagnosis Discharge Diagnosis (1) Cellulitis of right foot: Status: Acute (2) Atrial fibrillation: Status: Chronic (3) Peripheral arterial disease: Status: Chronic (4) Diabetes mellitus type 2: Status: Chronic (5) Coronary arteriosclerosis: Status: Chronic (6) Advance directive on file: Status: Acute Discharge Plan Disposition Patient Disposition: HOME W/HOME HEALTH SERVICE Condition: Stable Discharge Details Reason For Visit: R FOOT CELLULITIS, S/P TOE ARHROPLASTY, H/O DIABET Admit Date/Time: 08/04/18 14:07 Admit Provider: William Herrera Attending Provider: William Herrera Primary Care Provider: William Herrera Hospital Course Hospital Course: CC:Right Foot Infection HPI: 73 year old man with a history significant for DM and PVD, admitted from [facility] on 08/04 with a diagnosis of Cellulitis. Mr. Stapleton has a prior medical history significant for DM, PVD, CKD, Afib on AC, and CAD. His diabetes has not been well controlled. He initially presented to the ED from the [facility]er's office with note of of right foot cellulitis. The patient initially underwent surgical intervention the prior week on his fourth and fifth digits for Hammertoe deformities causing chronic skin ulcerations. Following the surgery he noted some increased swelling of his right leg and increasing discomfort of his foot. He was seen for a routine postop follow-up on the day of his admission, where he was noted to have of cellulitis of the effected foot. He was sent to the ED for admission following blood cultures and administration of antibiotics. Following admission the patient underwent surgical intervention with a washout of the prior surgical incision site, with debridement of the 4th and amputation of the 5th right digit. His wound was left open. Wound cultures from 08/06 show evidence of staph Lugdenensis and an enterococcus species, and Staph Lugdenensis on 08/07 from surgical cultures. Antibiotics were narrowed to Vancomycin initially, then changed to Cephalexin following discussion with ID. This morning the patient has no complaints. Wound appears to be healing well and improved appearing per staff. No overnight events reported. Remains afebrile. Hospital Course: (1) Cellulitis of right foot: Post-op wound infection in diabetic patient - initially on Vancomycin and Cefepime, narrowed to Vanc initially, then changed to Cephalexin following discussion with ID. Currently on day #7 total of antibiotic therapy. Patient is also s/p surgical debridement with washout of wound on 4th digit and amputation of the 5th. Blood Cultures remained negative. Culture results with Staph Lugdenensis from wound cultures from 08/07, and staph Lugdenensis and a pansensitive Enterococcus species from wound cultures on 08/06. Discussed with ID regarding type and duration of therapy - recommendations for change to oral Cephalexin, and given open wound will require 4-6 weeks total of antibiotics. Penicillin allergy noted - patient has tolerated Cephalosporin therapy in the past in the form of Cefazolin, and is tolerating Cephalexin well. Discussed with podiatry - will discharge with 3 additional weeks of antibiotics, with follow-up with podiatry to determine total course and duration based on wound progression. Will also repeat labwrok, including CRP, as an outpatient. Patient will require Home Health for wound care. (2) Atrial fibrillation: Continue BB, anticoagulation with Apixaban. (3) Peripheral arterial disease: Will recommend outpatient follow-up. (4) Hypothyroidism: Continue replacement therapy. (5) Diabetes mellitus type 2: Continue basal insulin, home regimen. (6) Coronary arteriosclerosis: CAD with reported prior revascularization. Continue BB, ASA, Statin. Appears quiescent. (7) DVT prophylaxis: Was maintained on chronic anticoagulation with Apixaban. Home Meds and New Rx's Prescriptions: New cephalexin 250 mg Capsule 750 mg PO TID Qty: 189 RF: 0 Continued atorvastatin [Lipitor] 20 MG tablet 40 mg PO DAILY RF: 0 levothyroxine 50 MCG tablet 50 mcg PO DAILY RF: 0 aspirin 81 MG tablet,delayed release (DR/EC) 81 mg PO DAILY RF: 0 metoprolol tartrate 25 MG tablet 25 mg PO BID Qty: 60 RF: 0 Eliquis 5 mg Tablet 5 mg PO BID RF: 0 Humalog U-100 Insulin 100 UNIT/ML cartridge 20 unit subcut BID RF: 0 Lantus Solostar U-100 Insulin 100 UNIT/1 ML insulin pen 60 units SQ HS RF: 0 lisinopril 30 mg Tablet 30 mg PO DAILY RF: 0 prednisolone acetate 1 % Drops,Suspension 1 drp OPHTHALMIC (EYE) DAILY RF: 0 brimonidine 0.2 % Drops 1 drp OPHTHALMIC (EYE) BID RF: 0 timolol maleate 0.5 % Drops, Once Daily 1 drp OPHTHALMIC (EYE) BID RF: 0 Refresh Tears 0.5 % Drops 1 drp OPHTHALMIC (EYE) TID RF: 0 Discontinued ibuprofen 600 mg Tablet 600 mg PO QID RF: 0 Discharge Instructions Care Plan Goals: [facility] services for nursing, he will need a face to face completed. Include complete instructions for wound management. Stand Alone Forms: Nursing Discharge Form Referrals: Jarred Trujillo DPM [[facility] STAFF PHYSICIAN] - 08/18/18 3:15 pm William Herrera MD [Primary Care Provider] - 08/15/18 11:55 am Activity:: No strenuous activity Equipment/Supplies:: Boot Diet:: Carb Counting Discharge Orders Discharge Orders: Discharge Order (Routine); Ordered 08/11/18 Ordered By: Mariano Gavin DS: Data Vitals/I&O Vitals and I&O: Vital Signs Temperature 36.6 C 08/11/18 07:30 Temperature Source Tympanic 08/11/18 07:30 Pulse 67 08/11/18 07:30 Pulse Rhythm Regular 08/11/18 09:59 Pulse 79 08/07/18 08:17 Respiratory Rate 14 08/11/18 07:30 Respiratory Effort Non-Labored 08/11/18 09:59 Respiratory Depth Normal 08/11/18 09:59 Respiratory Pattern Normal 08/11/18 09:59 Blood Pressure 165/63 H 08/11/18 07:30 Blood Pressure Position Sitting 08/04/18 09:24 Pulse Oximetry 99 08/11/18 07:30 Oxygen Delivery Method Room Air 08/11/18 07:30 Oxygen Flow Rate 0 08/11/18 07:30 Pain Level 7 08/10/18 17:57 Comment 08/10/18 11:25 Intake & Output 08/10/18 08/11/18 08/11/18 23:59 11:59 23:59 Intake Total 1613.333 / 3623.333 760 / 1010 250 / 1010 Output Total 1200 / 3560 1250 / 2500 1250 / 2500 Balance 413.333 / 63.333 -490 / -1490 -1000 / -1490 Weight 129.8 kg Intake: IV 283.333 / 503.333 Oral 1330 / 3120 760 / 1010 250 / 1010 Output: Urine 1200 / 3560 1250 / 2500 1250 / 2500 Other: Urine Color Yellow Yellow Yellow Urine Appearance Clear Clear Clear Urine Odor None Normal Comment Void x1 in the urinal. Voiding Methods Urinal Urinal Urinal Completed studies during hospitalization [Text1]: Exam(s) 08/04/2018 a RAD:XR foot RT complete SYMPTOMS/DIAGNOSIS: H/O RT 4TH AND 5TH TOE ARTHROPLASTY, CELLULITIS, ? OSTEOMYELITIS RIGHT FOOT: Three views. Comparison is 12/02/12. Since the prior examination, the patient has undergone arthroplasty involving the right 4th and 5th proximal interphalangeal joints. There is slight medial angulation of the residual proximal phalanx of the right 5th toe and a dislocation can not be excluded. Correlation with prior post surgical films is recommended. No acute osseous fracture or dislocation is seen. There are mild degenerative changes seen in the right foot. Extensive vascular calcifications are seen in the soft tissues. IMPRESSION: Post surgical changes seen at the 4th and 5th toes as described above. Question of an alignment abnormality involving the right 5th toe as described. Please correlate with patient post surgical images. ADDENDUM: The findings were discussed with Dr. Marsh. The patient is status post arthroplasty of the right 4th and 5th toes. The surgery occurred within the last week. There are no post procedural films available. No findings to suggest osteomyelitis are present. Alignment may be within normal limits post surgically. Continued monitoring of the right foot is recommended. Labs on day of discharge: Labs from last 24 hours 08/11/18 08/11/18 08/10/18 08:00 08:00 13:04 WBC 6.91 RBC 4.24 L Hgb 11.7 L Hct 35.2 L MCV 83.0 MCH 27.6 MCHC 33.2 RDW 13.9 Plt Count 168 MPV 9.8 Immature Gran % 0.4 Neutrophils % 67.2 Lymphocytes % 18.4 Monocytes % 9.3 Eosinophils % 4.3 Basophils % 0.4 Absolute Neutrophils 4.64 Absolute Lymphocytes 1.27 Absolute Monocytes 0.64 Absolute Eosinophils 0.30 Absolute Basophils 0.03 Sodium 138 Potassium 4.4 Chloride 99 Carbon Dioxide 30.6 Anion Gap 8.4 BUN 17 Creatinine 1.26 Estimated GFR/1.73 m2 55.94 Glucose 196 H Calcium 8.8 Magnesium 1.8 Vancomycin Trough 15.7 Preliminary micro results at discharge 03/14/19 10:21 Anaerobic Culture - Preliminary Toe - Right Fourth Digit Collected 08/06/2018 Wound Culture Final 08/11/18-1041 Day 1 Result ISOLATES BELOW DAY 1 GROWTH SCANT GROWTH ISOLATE 1 APPEARANCE Gram Positive Melita ISOLATE 1 ACTION IDENTIFICATION TO FOLLOW DAY 1 GROWTH SCANT GROWTH ISOLATE 2 APPEARANCE Gram Positive Melita Day 2 Result ISOLATES BELOW DAY 2 GROWTH SCANT GROWTH ISOLATE 1 APPEARANCE Gram Positive Melita ISOLATE 1 ACTION SUSCEPTIBILITY TO FOLLOW DAY 2 GROWTH SCANT GROWTH ISOLATE 2 APPEARANCE Gram Positive Melita ISOLATE 2 ACTION ID AND SUSCEPTIBILITY TO FOLLOW Day 3 Result ISOLATES BELOW DAY 3 GROWTH SCANT GROWTH ISOLATE 1 APPEARANCE Gram Positive Melita DAY 3 GROWTH SCANT GROWTH ISOLATE 2 APPEARANCE Gram Positive Melita Day 4 Result ISOLATES BELOW DAY 4 GROWTH SCANT GROWTH ISOLATE 1 APPEARANCE Gram Positive Melita DAY 4 GROWTH SCANT GROWTH ISOLATE 2 APPEARANCE Gram Positive Melita Organism 1 ENTEROCOCCUS FAECALIS GROWTH SCANT GROWTH Organism 2 STAPHYLOCOCCUS LUGDUNENSIS GROWTH SCANT GROWTH Ente faeca Stap lugd RESULT RESULT Ampicillin S Ciprofloxacin S S Gentamicin S Trimethoprim/Sulfamethoxazole S Daptomycin S Erythromycin R Oxacillin S Vancomycin S S Surgical Culture Final 08/11/18-1038 Day 1 Result ISOLATES BELOW DAY 1 GROWTH SCANT GROWTH ISOLATE 1 APPEARANCE Gram Positive Melita ISOLATE 1 ACTION IDENTIFICATION TO FOLLOW Day 2 Result ISOLATES BELOW DAY 2 GROWTH SCANT GROWTH ISOLATE 1 APPEARANCE Gram Positive Melita ISOLATE 1 ACTION SUSCEPTIBILITY TO FOLLOW Day 3 Result ISOLATES BELOW DAY 3 GROWTH SCANT GROWTH ISOLATE 1 APPEARANCE Gram Positive Melita Day 4 Result ISOLATES BELOW DAY 4 GROWTH SCANT GROWTH ISOLATE 1 APPEARANCE Gram Positive Melita [place] 1689 FOR STAPH. LUGDUNENSIS SENSITIVITIES Organism 1 STAPHYLOCOCCUS LUGDUNENSIS GROWTH SCANT GROWTH Stap lugd RESULT Ciprofloxacin S Gentamicin S Trimethoprim/Sulfamethoxazole S Erythromycin R Oxacillin S Vancomycin S [facility] Medical History Abdominal aortic aneurysm (Chronic) Peripheral arterial disease (Chronic) Central retinal artery occlusion, right eye (Chronic) Left heart failure with preserved LV function (Chronic) Chronic kidney disease stage 1 (Chronic) Atrial fibrillation (Chronic 12/28/12) Hypothyroidism (Chronic) Hyperlipemia (Acute) Atrial fibrillation (Chronic) Coronary artery disease (Chronic) Diabetes (Chronic) Hypothyroidism (Chronic) Peripheral vascular disease (Chronic) Surgical History Appendectomy Colonoscopy - MAC (05/25/16) Coronary Artery Bypass Gaft (CABG) Social History Smoking/Tobacco Use Status: Former Tobacco Use Alcohol Intake: current Alcohol Intake frequency: 0-2 drinks per day Drug use: Never Substance use type: does not use Do you feel safe in your relationship?: Yes
--- NOTE | 2018-08-11 14:47 | PDOC.HHF2F ---
1. Encounter Date and Reason I certify that GRISELDA DOYLE was seen by Mariano Gavin on 08/11/18 and that I had a [id number] encounter with this patient that meets the physician face to face encounter requirements. 2. Clinical Findings Supporting Skilled Need and Homebound Status I certify that home health services are medically necessary, include either intermittent senior living and/or physical/speech therapy, and that this patient is homebound in that absences from the home require considerable and taxing effort and are infrequent or of short duration, or are attributable to the need to receive medical care. [X] (a) Attached documentation from encounter provides clinical findings supporting skilled need and homebound status (including what assistance patient requires to leave the home). The encounter with the patient was in whole, or in part, for the following medical condition, which is the primary reason for home health care: R FOOT CELLULITIS, S/P TOE ARHROPLASTY, H/O DIABET Residential: Wound Care as per Instructions from Podiatry. Labwork in 5 days. Physical Therapy: Speech Therapy: Homebound: 3. Certification and Authentication I certify that I composed the above information based on my clinical judgement relating to this patient's medical condition and, if applicable, clinical findings communicated to me by the NPP or inpatient physician who performed the Home Health Referral. All further orders will be obtained through (Community Based Physician - PCP)
--- NOTE | 2018-08-11 15:05 | NUR.NOTE ---
Nursing Note: 1505: when pt removed sock on non operative foot, pt notes some bleeding from great toe. area intact with a fluid like area on the lateral side of the great toe. bandaid applied.
== END 2018-08-11 15:30 | disposition home health service (06) | DRG 856 ==
LOC: ER 12:50 → MS 13:31
PROVIDERS: Family Medicine; Podiatrist; Admitting Provider Internal Medicine; Emergency Provider Physician Assistant; PCP Internal Medicine; Visit Provider Internal Medicine
PROC: 0Y6X0Z0 Detachment at Right 5th Toe, Complete, Open Approach (ICD-10-PCS; CPT 28820; principal; 2018-08-07 10:00)
DX: T81.49XA Infection following a procedure, other surgical site, initial encounter (principal); A41.9 Sepsis, unspecified organism; L03.115 Cellulitis of right lower limb; I50.32 Chronic diastolic (congestive) heart failure; H34.11 Central retinal artery occlusion, right eye; E11.52 Type 2 diabetes mellitus with diabetic peripheral angiopathy with gangrene; I96 Gangrene, not elsewhere classified; B95.7 Other staphylococcus as the cause of diseases classified elsewhere; B95.2 Enterococcus as the cause of diseases classified elsewhere; Z16.29 Resistance to other single specified antibiotic; I48.91 Unspecified atrial fibrillation; E11.65 Type 2 diabetes mellitus with hyperglycemia; I25.10 Atherosclerotic heart disease of native coronary artery without angina pectoris; E03.9 Hypothyroidism, unspecified; E11.22 Type 2 diabetes mellitus with diabetic chronic kidney disease; N18.1 Chronic kidney disease, stage 1; E78.5 Hyperlipidemia, unspecified
CPT/HCPCS: 28820; 97597; 36410; 36415; 80048; 80053; 85027; 87040; 87077; 88300; 96361; 96365; 96368; 99222; 99232; 99233; 99239; 99285; 73630; 80202; 83036; 83605; 83735; 85025; 86140; 87070; 87075; 87186; 87205; 88304; 88311; J2250

== ENCOUNTER 2018-09-08 10:39 | Outpatient (CLI) | payer MEDICARE, OTHER, SELFPAY ==
[2018-09-08 11:41] LABS: HCT 38.4 % (40.0-50.0); HGB 12.5 g/dL (13.5-17.5); Mean Corp. HGB Concentration 32.6 g/dL (32.0-36.0); Mean Corpuscular Hemoglobin 27.1 pg (27.0-33.0); Mean Corpuscular Volume 83.1 fL (80-95); Mean Platelet Volume 10.9 fL (8.0-11.0); Platelet Count 138 x1000/uL (130-400); RBC 4.62 m/cumm (4.50-6.00); RBC Distribution Width 14.7 % (11.8-14.1); White Blood Cell Count 7.22 k/cumm (4.4-10.8)
[2018-09-08 11:54] LABS: C-Reactive Protein 2.44 mg/dL (0.0-0.3)
[2018-09-08 12:37] LABS: ESR 41 MM/HR (1-20)
== END 2018-09-08 10:59 ==
PROVIDERS: PCP Internal Medicine; Visit Provider Podiatrist
DX: M86.171 Other acute osteomyelitis, right ankle and foot (principal)
CPT/HCPCS: 36415; 85027; 85652; 86140

== ENCOUNTER 2018-09-19 09:02 | Day surgery (SDC) | payer MEDICARE, OTHER, SELFPAY ==
[2018-09-19] MEDS: Lactated Ringers 1,000 ML 80 ML IV (10:00)
[2018-09-19 10:12] VITALS: BP 157/96; PULSE 73; RESP 16; TEMP 35.4; O2SAT 97
[2018-09-19] MEDS: cefTRIAXone 2 GM/50 ML BAG IVPB (13:14)
[2018-09-19] MEDS: Bupivacaine 0.5% Pres-Free 30 ML VIAL (13:30)
[2018-09-19] MEDS: Lidocaine 1% Pres-Free 5 ML VIAL (13:30)
--- NOTE | 2018-09-19 13:40 | TOE_PTH ---
PATIENT: Nick Stapleton LOC: [facility] U#:[id number] AGE/SX: 73/M ROOM: RE09/19/[address]: Jarred Trujillo : 1945 BED: DIS: 09/19/2018 SPEC #: [id number] RECD: 09/19/18 16:45 STATUS: HELLEN REQ #: [id number] [place]: 09/19/18 13:[address]: Jarred Trujillo DEPT: Surgical Specimen RECD BY: Aguilar Ramirez ENTERED: 09/19/18 16:47 SP TYPE: TOE OTHR DR: William Herrera Tissues: 1 - AMPUTATION FINGERS/TOES(NOT TRAUMA) Procedures: GROSS AND MICRO LEVEL 4 DECALCIFICATION Comments: [id number]
--- NOTE | 2018-09-19 14:18 | W.PM.DSUDISC ---
Discharge Plan Disposition Patient Disposition: HOME Condition: Good Discharge Details Reason For Visit: OSTEOMYELITIS Attending Provider: Jarred Trujillo Primary Care Provider: William Hererra Home Meds and New Rx's Prescriptions: No Action atorvastatin [Lipitor] 20 MG tablet 40 mg PO DAILY RF: 0 levothyroxine 50 MCG tablet 50 mcg PO DAILY RF: 0 aspirin 81 MG tablet,delayed release (DR/EC) 81 mg PO DAILY RF: 0 metoprolol tartrate 25 MG tablet 25 mg PO BID Qty: 60 RF: 0 Eliquis 5 mg Tablet 5 mg PO BID RF: 0 Humalog U-100 Insulin 100 UNIT/ML cartridge 20 unit subcut BID RF: 0 Lantus Solostar U-100 Insulin 100 UNIT/1 ML insulin pen 60 units SQ HS RF: 0 ciprofloxacin 500 mg/5 mL Suspension,Microcapsule Recon 500 mg PO BID RF: 0 lisinopril 30 mg Tablet 30 mg PO DAILY RF: 0 prednisolone acetate 1 % Drops,Suspension 1 drp OPHTHALMIC (EYE) DAILY RF: 0 brimonidine 0.2 % Drops 1 drp OPHTHALMIC (EYE) BID RF: 0 timolol maleate 0.5 % Drops, Once Daily 1 drp OPHTHALMIC (EYE) BID RF: 0 Refresh Tears 0.5 % Drops 1 drp OPHTHALMIC (EYE) TID RF: 0 Discharge Instructions Activity:: Activity as Tolerated Remove Dressings/Wound Care:: Do Not Remove Shower/Bathe:: Cover Diet:: Normal Diet Discharge Orders Discharge Orders: Discharge Order (Routine); Ordered 09/19/18 Ordered By: Jarred Trujillo DS: Diagnosis Discharge Diagnosis (1) Osteomyelitis of ankle or foot, right, acute: Status: Acute
[2018-09-19 14:50] VITALS: BP 159/84; PULSE 72; RESP 16; TEMP 35.9; O2SAT 98
[2018-09-19] MEDS: Normal Saline Flush 10 ML SYR (15:20)
--- NOTE | 2018-09-19 15:48 | ROE_ITS ---
DATE OF PROCEDURE: September 19, 2018 PREOPERATIVE DIAGNOSIS: 1. Osteomyelitis of the right fourth toe. 2. Diabetic ulcer plantar lateral aspect right fifth metatarsal head. POSTOPERATIVE DIAGNOSIS: Same. PROCEDURE: Amputation right fourth toe with resection fourth metatarsal head, fifth metatarsal head and wide soft tissue excision, removing the diabetic ulcer. SURGEON: Jarred Trujillo D.P.M. OPERATIVE INDICATIONS: 73-year-old white male with long-standing, poorly-controlled diabetes with pe ripheral neuropathy for ongoing management of diabetic complications, now consisting of diabetic ulce ration, osteomyelitis of the fourth toe. Mr. Stapleton understands risks and complications pertaining to p ain, scarring, infection, permanent loss of tissue, ongoing infection, wound dehiscence requiring rev isional procedures and additional interventions, including the potential for loss of limb. Informed consent has been obtained. There are no promises made to the final outcome of surgery. REPORT OF OPERATION: Hi was brought to the operative suite, placed in the supine position. The r ight foot is prepped and draped in the usual sterile podiatric fashion. Following anesthesia, which consisted of IV general and local block of the fifth and fourth rays utilizing 20 cc's of a 50:50 mix ture 1% Lidocaine plain, 0.5% Marcaine plain. The right foot was exsanguinated and a well-padded ank le tourniquet inflated 250 mmHg. Two converging transverse, semi-elliptical incisions were placed starting from the dorsal medial aspe ct of the fourth toe at the base of the proximal phalanx, extending behind the fifth metatarsal head. A plantar incision was then placed from the distal plantar medial aspect of the fourth toe plantarl y, coming across so as to encompass the plantar ulceration under the fifth metatarsal head. The skin wedges were deepened in controlled-depth fashion with hemostasis acquired with electrocautery starti ng at the fourth toe. The extensor tendon was severed over the fourth toe. The incision was carried medially. The flexor tendon was severed. The joint capsule was incised and the fourth toe disartic ulated from the joint. The skin incision was now carried dorsal laterally, going partial-thickness t o start with, cauterizing with electrocautery as needed, and going all the way down to bone over the head of the fifth metatarsal. This incision was carried all the way lateral, then continued lateral plantar heading to distal medial. The plantar incision was completed and the soft tissue mass, inclu ding the fourth toe, was removed from the field en block. Soft tissue dissection was then performed, removing the soft tissue from the fifth metatarsal head and fourth metatarsal head. With power inst rumentation, the fifth metatarsal head was resected at its surgical neck, going distal medial to prox imal lateral. The fourth metatarsal head was resected transversely at its anatomic neck. All rough and bony edges were rasped smooth. The surgical wound was then debulked, removing the extensor and f lexor tendons that were exposed at the base of the field. Excessive fatty material was then debrided away as well. Copious irrigation was performed. The tissue was pink, healthy; there were no signs of infection. Please note, we did take a culture swab once the fourth toe had been incised at the MP J level and this was sent off to Microbiology. The wound once again was copiously irrigated. It was closed primarily utilizing #2-0 Nylon in a [id number] pattern with five retention sutures int erspersed by a combination of simple and vertical mattress suture of #3-0 Nylon and several #4-0 Nylo n in simple interrupted suture fashion. The incision closed without undue stress and looked good. X eroform, gauze fluff compression dressings were applied. The tourniquet was released at thirty minut es with vascularity returning immediately to the remaining portion of the foot. The patient left the OR with vital signs stable, vascular status intact. Sharp and sponge counts were correct. He will be followed by me. He will be scheduled for daily IV infusions on an outpatient basis and wound care of his left great toe. cc: William Herrera M.D.
== END 2018-09-19 15:30 | disposition home or self-care (01) ==
PROVIDERS: PCP Internal Medicine; Visit Provider Podiatrist
PROC: (CPT 28288; principal; 2018-09-19 11:00)
PROC: (CPT 28288; 2018-09-19 11:00)
DX: E11.69 Type 2 diabetes mellitus with other specified complication (principal); E11.622 Type 2 diabetes mellitus with other skin ulcer; M86.171 Other acute osteomyelitis, right ankle and foot; B95.2 Enterococcus as the cause of diseases classified elsewhere; E11.42 Type 2 diabetes mellitus with diabetic polyneuropathy
CPT/HCPCS: 28288 ×2; 28820; 87077; 88300; 88305; 87070; 87186; 87205; 88304; 88311

== ENCOUNTER 2018-09-23 01:13 | Outpatient (RCR) | payer MEDICARE, OTHER, SELFPAY ==
[2018-09-20] MEDS: HYDROcodone 5/Acetaminophen 325 TAB PO (14:10)
[2018-09-20] MEDS: cefTRIAXone 2 GM/50 ML BAG IVPB (14:12)
[2018-09-21] MEDS: cefTRIAXone 2 GM/50 ML BAG IVPB (14:06)
[2018-09-22] MEDS: cefTRIAXone 2 GM/50 ML BAG IVPB (14:05)
[2018-09-22] MEDS: Normal Saline Flush 10 ML SYR IVP (14:13)
[2018-09-23] MEDS: cefTRIAXone 2 GM VIAL IM ×2 (13:55→13:58)
[2018-09-23] MEDS: Lidocaine 1% Multi-Dose 50 ML VIAL IM (13:58)
== END 2018-09-23 23:59 | disposition home or self-care (01) ==
LOC: INF 01:13
PROVIDERS: PCP Internal Medicine; Visit Provider Podiatrist
DX: M86.171 Other acute osteomyelitis, right ankle and foot (principal)
CPT/HCPCS: 96365; 96372; J0696

== ENCOUNTER 2018-09-23 14:43 | Outpatient (REF) | payer MEDICARE, OTHER, SELFPAY ==
[2018-09-24 22:22] LABS: Result Negative; Specimen Description Feces
== END 2018-09-23 15:03 ==
LOC: LBN 14:43
PROVIDERS: PCP Internal Medicine; Visit Provider Podiatrist
DX: R19.7 Diarrhea, unspecified (principal)
CPT/HCPCS: 87324; 87798

== ENCOUNTER 2018-10-06 00:50 | Outpatient (RCR) | payer MEDICARE, OTHER, SELFPAY ==
[2018-09-24] MEDS: cefTRIAXone 2 GM VIAL IM (14:14)
[2018-09-24] MEDS: Lidocaine 1% Multi-Dose 50 ML VIAL IJ (14:14)
[2018-09-25] MEDS: cefTRIAXone 2 GM VIAL IM (13:51)
[2018-09-25] MEDS: Lidocaine 1% Multi-Dose 50 ML VIAL IJ (13:51)
[2018-09-26] MEDS: cefTRIAXone 2 GM VIAL IM (14:09)
[2018-09-26] MEDS: Lidocaine 1% Multi-Dose 50 ML VIAL IJ (14:10)
[2018-09-27] MEDS: cefTRIAXone 2 GM VIAL IM (14:00)
[2018-09-27] MEDS: Lidocaine 1% Multi-Dose 50 ML VIAL IJ (14:10)
[2018-09-28 13:45] VITALS: BP 165/70; PULSE 62; RESP 20; TEMP 36.9; O2SAT 97
[2018-09-28] MEDS: cefTRIAXone 2 GM VIAL IM (13:49)
[2018-09-28] MEDS: Lidocaine 1% Multi-Dose 50 ML VIAL IJ (13:51)
[2018-09-28 14:49] LABS: Abs Immature Grans 0.01 k/cumm (0.0-0.09); Absolute Basophil Count 0.03 k/cumm (0.0-0.2); Absolute Eosinophil Count 0.22 k/cumm (0.0-0.7); Absolute Lymphocyte Count 1.65 k/cumm (1.2-3.4); Absolute Monocyte Count 0.93 k/cumm (0.11-0.7); Absolute Neutrophil Count 4.92 k/cumm (1.2-6.7); Basophils % 0.4; Eosinophils % 2.8; HCT 36.2 % (40.0-50.0); HGB 11.9 g/dL (13.5-17.5); Immature Grans % 0.1; Lymphocytes % 21.3; Mean Corp. HGB Concentration 32.9 g/dL (32.0-36.0); Mean Corpuscular Hemoglobin 27.3 pg (27.0-33.0); Mean Platelet Volume 9.6 fL (8.0-11.0); Neutrophils % 63.4; Platelet Count 176 x1000/uL (130-400); RBC 4.36 m/cumm (4.50-6.00); RBC Distribution Width 14.3 % (11.8-14.1); White Blood Cell Count 7.76 k/cumm (4.4-10.8)
[2018-09-28 14:57] LABS: C-Reactive Protein 7.55 mg/dL (0.0-0.3)
[2018-09-29] MEDS: cefTRIAXone 2 GM VIAL IM (14:14)
[2018-09-29] MEDS: Lidocaine 1% Multi-Dose 50 ML VIAL IJ (14:14)
[2018-10-03] MEDS: cefTRIAXone 2 GM VIAL IM (14:42)
[2018-10-03] MEDS: Lidocaine 1% Multi-Dose 50 ML VIAL IJ (14:42)
[2018-10-04] MEDS: Lidocaine 1% Multi-Dose 50 ML VIAL IJ (13:49)
[2018-10-04] MEDS: cefTRIAXone 2 GM VIAL IM (13:49)
[2018-10-05] MEDS: cefTRIAXone 2 GM VIAL IM (13:54)
[2018-10-05] MEDS: Lidocaine 1% Multi-Dose 50 ML VIAL IJ (13:54)
== END 2018-10-24 23:59 | disposition home or self-care (01) ==
LOC: INF 00:50
PROVIDERS: PCP Internal Medicine; Visit Provider Podiatrist
DX: M86.171 Other acute osteomyelitis, right ankle and foot (principal)
CPT/HCPCS: 36415; 96372; 99211; 85025; 86140; J0696

== ENCOUNTER 2018-11-23 00:34 | Outpatient (RCR) | payer MEDICARE, OTHER, SELFPAY ==
[2018-11-19] MEDS: Normal Saline Flush 10 ML SYR IVP (14:59)
[2018-11-20] MEDS: Normal Saline Flush 10 ML SYR IVP (13:53)
[2018-11-21] MEDS: Normal Saline Flush 10 ML SYR IVP (13:30)
[2018-11-22] MEDS: Normal Saline Flush 10 ML SYR IVP (13:49)
[2018-11-23] MEDS: Normal Saline Flush 10 ML SYR IVP (13:38)
== END 2018-11-23 23:59 | disposition home or self-care (01) ==
LOC: INF 00:34
PROVIDERS: PCP Internal Medicine; Visit Provider Internal Medicine
DX: M86.071 Acute hematogenous osteomyelitis, right ankle and foot (principal)
CPT/HCPCS: 96365; 99211; J0878

== ENCOUNTER 2018-12-24 01:44 | Outpatient (RCR) | payer MEDICARE, OTHER, SELFPAY ==
[2018-11-24] MEDS: Normal Saline Flush 10 ML SYR IVP (13:30)
[2018-11-24 13:48] LABS: Abs Immature Grans 0.02 k/cumm (0.0-0.09); Absolute Basophil Count 0.02 k/cumm (0.0-0.2); Absolute Eosinophil Count 0.19 k/cumm (0.0-0.7); Absolute Lymphocyte Count 1.19 k/cumm (1.2-3.4); Absolute Monocyte Count 0.69 k/cumm (0.11-0.7); Absolute Neutrophil Count 4.28 k/cumm (1.2-6.7); Basophils % 0.3; HCT 34.7 % (40.0-50.0); HGB 11.3 g/dL (13.5-17.5); Immature Grans % 0.3; Lymphocytes % 18.6; Mean Corp. HGB Concentration 32.6 g/dL (32.0-36.0); Mean Corpuscular Hemoglobin 26.5 pg (27.0-33.0); Mean Corpuscular Volume 81.3 fL (80-95); Mean Platelet Volume 10.3 fL (8.0-11.0); Monocytes % 10.8; Platelet Count 146 x1000/uL (130-400); RBC 4.27 m/cumm (4.50-6.00); RBC Distribution Width 15.9 % (11.8-14.1); White Blood Cell Count 6.39 k/cumm (4.4-10.8)
[2018-11-24 14:00] LABS: ALT 21 U/L (12-78); AST 13 U/L (15-37); Alkaline Phosphatase 108 U/L (46-116); Anion Gap 7.7 mmol/L (3-11); BUN 21 mg/dL (7-18); Bilirubin, Total 0.4 mg/dL (0.2-1.0); C-Reactive Protein 0.97 mg/dL (0.0-0.3); CO2 30.3 mmol/L (21.0-32.0); Calcium 8.6 mg/dL (8.5-10.1); Chloride 104 mmol/L (98-107); Creatine Kinase 33 U/L (39-308); Estimated GFR 45.75 (mL/min/1.73m2); Glucose 151 mg/dL (70-100); Potassium 4.5 mmol/L (3.5-5.1); Sodium 142 mmol/L (136-145); Total Protein 6.4 g/dL (6.4-8.2)
[2018-11-25] MEDS: Normal Saline Flush 10 ML SYR IVP (13:57)
[2018-11-26] MEDS: Normal Saline Flush 10 ML SYR IVP (14:16)
[2018-11-27 13:06] VITALS: BP 170/86; PULSE 72; RESP 18; TEMP 37; O2SAT 99
[2018-11-27] MEDS: Normal Saline Flush 10 ML SYR IVP (13:49)
[2018-11-28] MEDS: Normal Saline Flush 10 ML SYR IVP (13:57)
[2018-11-30] MEDS: Normal Saline Flush 10 ML SYR IVP (13:48)
[2018-12-01 13:58] LABS: Abs Immature Grans 0.01 k/cumm (0.0-0.09); Absolute Basophil Count 0.01 k/cumm (0.0-0.2); Absolute Eosinophil Count 0.22 k/cumm (0.0-0.7); Absolute Lymphocyte Count 1.06 k/cumm (1.2-3.4); Absolute Neutrophil Count 3.26 k/cumm (1.2-6.7); Basophils % 0.2; Eosinophils % 4.3; HCT 35.3 % (40.0-50.0); HGB 11.4 g/dL (13.5-17.5); Immature Grans % 0.2; Lymphocytes % 20.5; Mean Corp. HGB Concentration 32.3 g/dL (32.0-36.0); Mean Corpuscular Hemoglobin 26.5 pg (27.0-33.0); Mean Corpuscular Volume 82.1 fL (80-95); Mean Platelet Volume 10.4 fL (8.0-11.0); Monocytes % 11.6; Neutrophils % 63.2; Platelet Count 123 x1000/uL (130-400); RBC Distribution Width 15.7 % (11.8-14.1); White Blood Cell Count 5.16 k/cumm (4.4-10.8)
[2018-12-01] MEDS: Normal Saline Flush 10 ML SYR IVP (14:02)
[2018-12-01 14:04] LABS: ALT 15 U/L (12-78); AST 7 U/L (15-37); Albumin 3.1 g/dL (3.4-5.0); Alkaline Phosphatase 106 U/L (46-116); BUN 21 mg/dL (7-18); Bilirubin, Total 0.3 mg/dL (0.2-1.0); C-Reactive Protein 1.09 mg/dL (0.0-0.3); CREATININE 1.49 mg/dL (0.70-1.30); Calcium 8.3 mg/dL (8.5-10.1); Chloride 104 mmol/L (98-107); Glucose 270 mg/dL (70-100); Potassium 4.8 mmol/L (3.5-5.1); Sodium 140 mmol/L (136-145); Total Protein 6.5 g/dL (6.4-8.2)
[2018-12-02 04:29] LABS: Creatine Kinase 51 U/L (39-308)
[2018-12-02] MEDS: Normal Saline Flush 10 ML SYR IVP (14:03)
[2018-12-03] MEDS: Normal Saline Flush 10 ML SYR IVP (13:44)
[2018-12-04] MEDS: Normal Saline Flush 10 ML SYR IVP (13:27)
[2018-12-05] MEDS: Normal Saline Flush 10 ML SYR IVP (13:51)
[2018-12-07] MEDS: Normal Saline Flush 10 ML SYR IVP (13:55)
[2018-12-08 13:29] LABS: Abs Immature Grans 0.01 k/cumm (0.0-0.09); Absolute Basophil Count 0.01 k/cumm (0.0-0.2); Absolute Eosinophil Count 0.19 k/cumm (0.0-0.7); Absolute Lymphocyte Count 1.19 k/cumm (1.2-3.4); Absolute Neutrophil Count 3.61 k/cumm (1.2-6.7); Basophils % 0.2; Eosinophils % 3.4; HCT 36.7 % (40.0-50.0); HGB 12.1 g/dL (13.5-17.5); Immature Grans % 0.2; Lymphocytes % 21.2; Mean Corpuscular Hemoglobin 26.7 pg (27.0-33.0); Mean Platelet Volume 10.2 fL (8.0-11.0); Monocytes % 10.7; Neutrophils % 64.3; Platelet Count 146 x1000/uL (130-400); RBC 4.53 m/cumm (4.50-6.00); RBC Distribution Width 15.9 % (11.8-14.1); White Blood Cell Count 5.61 k/cumm (4.4-10.8)
[2018-12-08 13:45] LABS: ALT 21 U/L (12-78); AST 16 U/L (15-37); Albumin 3.1 g/dL (3.4-5.0); Alkaline Phosphatase 98 U/L (46-116); Anion Gap 5.8 mmol/L (3-11); BUN 23 mg/dL (7-18); Bilirubin, Total 0.4 mg/dL (0.2-1.0); C-Reactive Protein 0.74 mg/dL (0.0-0.3); CO2 30.2 mmol/L (21.0-32.0); CREATININE 1.25 mg/dL (0.70-1.30); Calcium 8.5 mg/dL (8.5-10.1); Chloride 104 mmol/L (98-107); Estimated GFR 56.46 (mL/min/1.73m2); Glucose 237 mg/dL (70-100); Potassium 4.3 mmol/L (3.5-5.1); Sodium 140 mmol/L (136-145); Total Protein 6.5 g/dL (6.4-8.2)
[2018-12-08 13:46] LABS: Creatine Kinase 61 U/L (39-308)
[2018-12-08] MEDS: Normal Saline Flush 10 ML SYR IVP ×2 (14:04→14:20)
[2018-12-09] MEDS: Normal Saline Flush 10 ML SYR IVP (13:48)
[2018-12-10] MEDS: Normal Saline Flush 10 ML SYR IVP (14:05)
[2018-12-11] MEDS: Normal Saline Flush 10 ML SYR IVP (14:04)
[2018-12-12] MEDS: Normal Saline Flush 10 ML SYR IVP (13:29)
[2018-12-13] MEDS: Normal Saline Flush 10 ML SYR IVP (13:42)
[2018-12-14] MEDS: Normal Saline Flush 10 ML SYR IVP (13:56)
[2018-12-15 12:00] LABS: Abs Immature Grans 0.01 k/cumm (0.0-0.09); Absolute Basophil Count 0.02 k/cumm (0.0-0.2); Absolute Eosinophil Count 0.14 k/cumm (0.0-0.7); Absolute Lymphocyte Count 1.23 k/cumm (1.2-3.4); Absolute Monocyte Count 0.75 k/cumm (0.11-0.7); Absolute Neutrophil Count 3.76 k/cumm (1.2-6.7); Basophils % 0.3; Eosinophils % 2.4; HCT 37.2 % (40.0-50.0); HGB 12.3 g/dL (13.5-17.5); Immature Grans % 0.2; Lymphocytes % 20.8; Mean Corp. HGB Concentration 33.1 g/dL (32.0-36.0); Mean Corpuscular Volume 81.8 fL (80-95); Mean Platelet Volume 9.7 fL (8.0-11.0); Monocytes % 12.7; Neutrophils % 63.6; Platelet Count 155 x1000/uL (130-400); RBC 4.55 m/cumm (4.50-6.00); RBC Distribution Width 16.1 % (11.8-14.1); White Blood Cell Count 5.91 k/cumm (4.4-10.8)
[2018-12-15 12:14] LABS: ALT 20 U/L (12-78); AST 14 U/L (15-37); Albumin 3.1 g/dL (3.4-5.0); Alkaline Phosphatase 94 U/L (46-116); Anion Gap 7.6 mmol/L (3-11); BUN 27 mg/dL (7-18); Bilirubin, Total 0.3 mg/dL (0.2-1.0); CO2 29.4 mmol/L (21.0-32.0); CREATININE 1.27 mg/dL (0.70-1.30); Calcium 8.8 mg/dL (8.5-10.1); Chloride 104 mmol/L (98-107); Creatine Kinase 74 U/L (39-308); Estimated GFR 55.44 (mL/min/1.73m2); Glucose 230 mg/dL (70-100); Potassium 4.4 mmol/L (3.5-5.1); Sodium 141 mmol/L (136-145); Total Protein 6.6 g/dL (6.4-8.2)
[2018-12-15] MEDS: Normal Saline Flush 10 ML SYR IVP (12:32)
[2018-12-16] MEDS: Normal Saline Flush 10 ML SYR IVP (13:46)
[2018-12-17] MEDS: Normal Saline Flush 10 ML SYR IVP (13:39)
[2018-12-18] MEDS: Normal Saline Flush 10 ML SYR IVP (13:54)
[2018-12-19] MEDS: Normal Saline Flush 10 ML SYR IVP (14:23)
[2018-12-20] MEDS: Normal Saline Flush 10 ML SYR IVP (14:14)
[2018-12-21] MEDS: Normal Saline Flush 10 ML SYR IVP (13:47)
[2018-12-22] MEDS: Normal Saline Flush 10 ML SYR IVP (14:00)
[2018-12-22 14:24] LABS: Abs Immature Grans 0.02 k/cumm (0.0-0.09); Absolute Basophil Count 0.02 k/cumm (0.0-0.2); Absolute Eosinophil Count 0.17 k/cumm (0.0-0.7); Absolute Lymphocyte Count 1.46 k/cumm (1.2-3.4); Absolute Monocyte Count 0.81 k/cumm (0.11-0.7); Absolute Neutrophil Count 4.36 k/cumm (1.2-6.7); Basophils % 0.3; Eosinophils % 2.5; HCT 38.3 % (40.0-50.0); HGB 12.8 g/dL (13.5-17.5); Immature Grans % 0.3; Lymphocytes % 21.3; Mean Corp. HGB Concentration 33.4 g/dL (32.0-36.0); Mean Corpuscular Volume 80.8 fL (80-95); Mean Platelet Volume 11.1 fL (8.0-11.0); Monocytes % 11.8; Neutrophils % 63.8; Platelet Count 165 x1000/uL (130-400); RBC 4.74 m/cumm (4.50-6.00); White Blood Cell Count 6.84 k/cumm (4.4-10.8)
[2018-12-22 14:53] LABS: ALT 21 U/L (12-78); AST 13 U/L (15-37); Albumin 3.2 g/dL (3.4-5.0); Alkaline Phosphatase 98 U/L (46-116); Anion Gap 8.2 mmol/L (3-11); BUN 24 mg/dL (7-18); Bilirubin, Total 0.3 mg/dL (0.2-1.0); C-Reactive Protein 0.41 mg/dL (0.0-0.3); CO2 28.8 mmol/L (21.0-32.0); CREATININE 1.21 mg/dL (0.70-1.30); Calcium 8.6 mg/dL (8.5-10.1); Chloride 102 mmol/L (98-107); Creatine Kinase 74 U/L (39-308); Estimated GFR 58.62 (mL/min/1.73m2); Glucose 179 mg/dL (70-100); Potassium 4.7 mmol/L (3.5-5.1); Sodium 139 mmol/L (136-145); Total Protein 6.9 g/dL (6.4-8.2)
[2018-12-23] MEDS: Normal Saline Flush 10 ML SYR IVP (13:35)
[2018-12-24] MEDS: Normal Saline Flush 10 ML SYR IVP (14:18)
== END 2018-12-24 23:59 | disposition home or self-care (01) ==
LOC: INF 01:44
PROVIDERS: Internal Medicine; PCP Internal Medicine; Visit Provider Internal Medicine
DX: B95.7 Other staphylococcus as the cause of diseases classified elsewhere (principal); M86.071 Acute hematogenous osteomyelitis, right ankle and foot; Z45.2 Encounter for adjustment and management of vascular access device
CPT/HCPCS: 36592; 80053; 82550; 96365; 99211; 85025; 86140; J0878

== ENCOUNTER 2019-01-22 00:53 | Outpatient (RCR) | payer MEDICARE, OTHER, SELFPAY ==
[2018-12-25] MEDS: Normal Saline Flush 10 ML SYR IVP (13:31)
[2018-12-26] MEDS: Normal Saline Flush 10 ML SYR IVP (13:32)
[2018-12-27] MEDS: Normal Saline Flush 10 ML SYR IVP (13:39)
[2018-12-28] MEDS: Normal Saline Flush 10 ML SYR IVP (13:30)
--- NOTE | 2018-12-29 13:05 | DI.RAD_ITS ---
SYMPTOMS/DIAGNOSIS: PICC PLACEMENT PORTABLE CHEST: Comparison is made with May,. A PICC line has been placed via the right arm since the previous exam. The tip lies in the SVC. Sternal wires are seen. The heart is mildly enlarged. The lungs appear clear. No pneumothorax is seen. The patient is status post CABG. IMPRESSION: The tip of the PICC line is located in the SVC.
[2018-12-29 15:18] LABS: Abs Immature Grans 0.01 k/cumm (0.0-0.09); Absolute Basophil Count 0.02 k/cumm (0.0-0.2); Absolute Eosinophil Count 0.23 k/cumm (0.0-0.7); Absolute Lymphocyte Count 1.64 k/cumm (1.2-3.4); Absolute Monocyte Count 0.66 k/cumm (0.11-0.7); Absolute Neutrophil Count 4.13 k/cumm (1.2-6.7); Basophils % 0.3; Eosinophils % 3.4; HCT 39.3 % (40.0-50.0); HGB 13.2 g/dL (13.5-17.5); Immature Grans % 0.1; Lymphocytes % 24.5; Mean Corp. HGB Concentration 33.6 g/dL (32.0-36.0); Mean Corpuscular Volume 80.4 fL (80-95); Mean Platelet Volume 10.5 fL (8.0-11.0); Monocytes % 9.9; Neutrophils % 61.8; Platelet Count 142 x1000/uL (130-400); RBC 4.89 m/cumm (4.50-6.00); White Blood Cell Count 6.69 k/cumm (4.4-10.8)
[2018-12-29 15:20] LABS: ALT 23 U/L (12-78); AST 12 U/L (15-37); Albumin 3.2 g/dL (3.4-5.0); Alkaline Phosphatase 116 U/L (46-116); Anion Gap 5.9 mmol/L (3-11); BUN 30 mg/dL (7-18); Bilirubin, Total 0.3 mg/dL (0.2-1.0); C-Reactive Protein 0.81 mg/dL (0.0-0.3); CO2 30.1 mmol/L (21.0-32.0); CREATININE 1.34 mg/dL (0.70-1.30); Calcium 8.3 mg/dL (8.5-10.1); Chloride 105 mmol/L (98-107); Estimated GFR 52.11 (mL/min/1.73m2); Glucose 156 mg/dL (70-100); Potassium 4.8 mmol/L (3.5-5.1); Sodium 141 mmol/L (136-145); Total Protein 7.1 g/dL (6.4-8.2)
[2018-12-29] MEDS: Normal Saline Flush 10 ML SYR IVP (15:26)
[2018-12-29] MEDS: Alteplase 2 MG VIAL (15:26)
[2018-12-29] MEDS: Water,Injection,Sterile 10 ML VIAL (15:27)
[2018-12-30] MEDS: Normal Saline Flush 10 ML SYR IVP (13:28)
[2018-12-31] MEDS: Normal Saline Flush 10 ML SYR IVP (13:45)
[2018-12-31 16:06] LABS: Creatine Kinase 84 U/L (39-308)
[2019-01-01] MEDS: Normal Saline Flush 10 ML SYR IVP (13:38)
[2019-01-02] MEDS: Normal Saline Flush 10 ML SYR IVP (13:46)
[2019-01-03] MEDS: Normal Saline Flush 10 ML SYR IVP (14:51)
[2019-01-04] MEDS: Normal Saline Flush 10 ML SYR IVP (13:41)
[2019-01-05 13:14] LABS: Abs Immature Grans 0.03 k/cumm (0.0-0.09); Absolute Basophil Count 0.03 k/cumm (0.0-0.2); Absolute Eosinophil Count 0.31 k/cumm (0.0-0.7); Absolute Lymphocyte Count 1.83 k/cumm (1.2-3.4); Absolute Monocyte Count 0.75 k/cumm (0.11-0.7); Absolute Neutrophil Count 4.77 k/cumm (1.2-6.7); Basophils % 0.4; HCT 39.2 % (40.0-50.0); HGB 13.3 g/dL (13.5-17.5); Immature Grans % 0.4; Lymphocytes % 23.7; Mean Corp. HGB Concentration 33.9 g/dL (32.0-36.0); Mean Corpuscular Hemoglobin 27.1 pg (27.0-33.0); Mean Platelet Volume 10.2 fL (8.0-11.0); Monocytes % 9.7; Neutrophils % 61.8; Platelet Count 144 x1000/uL (130-400); RBC Distribution Width 15.9 % (11.8-14.1); White Blood Cell Count 7.72 k/cumm (4.4-10.8)
[2019-01-05 13:29] LABS: ALT 27 U/L (12-78); AST 14 U/L (15-37); Albumin 3.4 g/dL (3.4-5.0); Alkaline Phosphatase 125 U/L (46-116); Anion Gap 9.1 mmol/L (3-11); BUN 27 mg/dL (7-18); Bilirubin, Total 0.4 mg/dL (0.2-1.0); C-Reactive Protein 0.81 mg/dL (0.0-0.3); CO2 27.9 mmol/L (21.0-32.0); CREATININE 1.52 mg/dL (0.70-1.30); Calcium 8.7 mg/dL (8.5-10.1); Chloride 104 mmol/L (98-107); Creatine Kinase 97 U/L (39-308); Estimated GFR 45.05 (mL/min/1.73m2); Glucose 97 mg/dL (70-100); Potassium 3.9 mmol/L (3.5-5.1); Sodium 141 mmol/L (136-145); Total Protein 7.3 g/dL (6.4-8.2)
[2019-01-05] MEDS: Normal Saline Flush 10 ML SYR IVP (14:01)
[2019-01-06] MEDS: Normal Saline Flush 10 ML SYR IVP (13:51)
[2019-01-07] MEDS: Normal Saline Flush 10 ML SYR IVP (13:42)
[2019-01-08] MEDS: Normal Saline Flush 10 ML SYR IVP (13:39)
[2019-01-12] MEDS: Normal Saline Flush 10 ML SYR IVP (12:53)
[2019-01-13] MEDS: Normal Saline Flush 10 ML SYR IVP (12:40)
[2019-01-14] MEDS: Normal Saline Flush 10 ML SYR IVP (13:13)
== END 2019-01-24 23:59 | disposition home or self-care (01) ==
LOC: INF 00:53
PROVIDERS: Internal Medicine; PCP Internal Medicine; Visit Provider Internal Medicine
DX: M86.071 Acute hematogenous osteomyelitis, right ankle and foot (principal); B95.7 Other staphylococcus as the cause of diseases classified elsewhere; T82.898A Other specified complication of vascular prosthetic devices, implants and grafts, initial encounter; Z45.2 Encounter for adjustment and management of vascular access device
CPT/HCPCS: 36415; 36592; 36593; 71045; 80053; 82550; 96365; 99211; 85025; 86140; J0878; J2997

== ENCOUNTER 2019-08-09 13:21 | Inpatient (IN) | payer MEDICARE, OTHER, SELFPAY ==
[2019-08-09] VITALS (58 sets, daily range): BP systolic 123–188; BP diastolic 50–97; PULSE 71–120; RESP 10–27; TEMP 36.5–39.1; O2SAT 92–98
--- NOTE | 2019-08-09 13:24 | ED.GENADUL_ITS ---
Discharge Plan Disposition Patient Disposition: [facility] INPATIENT Condition: Stable Discharge Details Chief Complaint: SOB Clinical Impression: Shortness of breath Admit Date/Time: 08/09/19 17:24 Admit Provider: Jorge Wahl Attending Provider: Jorge Wahl Primary Care Provider: William Herrera ED Provider: Linn Wylie Discharge Data Discharge Date/Time-TO BE ENTERED AT DEPARTURE: 08/09/19 18:06 Medical Decision Making <GROVER Humphrey - Last Filed: 08/09/19 19:14> Patient is a pleasant 74-year-old gentleman, accompanied by his , with chief complaint of shortness of breath. He reports that he was sitting sedentary at home when he had a sudden onset of shortness of breath and nausea. He denies any chest pain. He has not had pain like this historically. He has had a CABG, states his surgery was in 2007. He has been anticoagulated on Eliquis since that time has been taking the medication as prescribed. He denies any exertional symptoms at baseline. He has not needed to take any nitro. Patient does have a history of atrial fibrillation but denies being in this recently. He does not know what symptoms he typically exhibits when he has episodes of atrial fibrillation, it sounds to be several years since his last episode. Denies any recent travel. No cough. No known sick contacts. EKG was reviewed by Dr. Eugene. Patient is in atrial fibrillation with no acute ischemic changes noted. On exam, patient is resting comfortably. He is holding emesis bag and did have one episode of emesis prior to my arrival into the room. He is an irregularly irregular rhythm with no murmurs, rubs or gallops appreciated. Lungs are clear bilaterally. Abdomen is benign. Does have discoloration consistent with peripheral vascular disease in his lower extremities with mild swelling which they report is baseline. No calf tenderness. Chest x-ray reviewed by radiology: FINDINGS: Prior median sternotomy. Interval removal of a right-sided PICC line. The lung michelle are clear bilaterally. No focal pulmonary consolidation is present. The cardiac silhouette is within normal limits. The costophrenic angles are sharp. The bony structures appear unremarkable. IMPRESSION: No evidence of acute cardiopulmonary disease. Initial labs are reviewed. Patient does have a white count of 14.5. He is not exhibiting any evidence to suggest infection, I am questioning if this may be acute response in setting of shortness of breath and vomiting. Labs significant for anion gap 12.2, BUN of 32, creatinine of 1.7. Patient is hydrating. Magnesium slightly low at 1.4, we will replenish this. BNP 1734 which actually low compared to previous measurements in the past. Discussed these findings with the patient. He will continue to hydrate orally. Did discuss the patient with the hospitalist preemptively while his second troponin is pending. The other possibilities the patient may have been a tachyarrhythmia will cause his symptoms as well as vomiting. The vagal maneuver associated with vomiting may have helped to slow the patient's current rhythm. However, he is also high risk for ACS as well with atypical symptoms. Patient is high risk and I feel that if repeat troponin remains negative, hospitalization would be appropriate with this patient. Repeat troponin is pending. HEART score 5. Discussed case with Jordyn Wylie NP who will be assuming care at the end of my shift with repeat troponin and disposition pending. <Linn Wylie - Last Filed: 08/09/19 19:17> Care assumed of patient. Report received from GROVER Casiano regarding patient presentation and case. Please see previous HPI and exam note. At this time, repeat troponin is resulted and is negative plan is to admit patient due to him being high risk. Does have a history of AAA, coronary artery disease, diabetes hyperlipidemia, and A. fib. Hospitalist paged. [id number]: Spoke with Dr. Squires who agrees to accept patient for admission, for atypical chest pain and observation. HPI <GROVER Humphrey - Last Filed: 08/09/19 19:14> General Mode of arrival: ambulatory . Date/Time Provider Initiated Documentation: 08/09/19 13:24 . Limitations to Documentation: no limitations . Information obtained by: patient, family () and RN notes reviewed . History of Present Illness 74 year old M presents to the emergency department with the chief complaint of shortness of breath and nausea, described as severe, Quality is described as other (SOB, no pain), and is localized to the chest. Patient reports no radiation. Patient started experiencing this hour(s) (1) and it has been constant. No relieving factors improve symptom(s), No exacerbating factors reported . Patient notes nausea/vomiting and shortness of breath; denies chest pain, diaphoresis, fever/chills and loss of appetite. Patient did receive the following treatments prior to arrival, none Related Data Home Medications Medication Instructions Recorded Confirmed aspirin 81 mg PO DAILY 11/08/12 08/09/19 atorvastatin [Lipitor] 40 mg PO DAILY 11/08/12 08/09/19 levothyroxine 50 mcg PO DAILY 11/08/12 08/09/19 metoprolol tartrate 25 mg PO BID #60 tab 01/02/13 08/09/19 Eliquis 5 mg PO BID 07/29/18 08/09/19 Humalog U-100 Insulin 20 unit SUBCUT BID 07/29/18 08/09/19 Lantus Solostar U-100 Insulin 60 units SQ HS 07/29/18 08/09/19 Refresh Tears 1 drp OPHTHALMIC (EYE) TID 08/04/18 08/09/19 brimonidine 1 drp OPHTHALMIC (EYE) BID 08/04/18 08/09/19 lisinopril 30 mg PO DAILY 08/04/18 08/09/19 prednisolone acetate 1 drp OPHTHALMIC (EYE) DAILY 08/04/18 08/09/19 timolol maleate 1 drp OPHTHALMIC (EYE) BID 08/04/18 08/09/19 furosemide 20 mg tablet 20 mg PO DAILY 08/03/19 08/09/19 Previous Rx's Medication Instructions Recorded metoprolol tartrate 25 mg PO BID #60 tab 01/02/13 Allergies Allergy/AdvReac Type Severity Reaction Status Date / Time amoxicillin trihydrate Allergy Intermediate Hives Unverified 08/09/19 13:30 [From Augmentin] simvastatin Allergy Unknown Unverified 08/09/19 13:30 [From Vytorin 10-10] General MELISSA: 3 Review of Systems <GROVER Humphrey - Last Filed: 08/09/19 19:14> Constitutional Constitutional: Reports as per HPI, Denies chills, Denies fever(s), Denies headache(s), Denies lethargy and Denies poor appetite Eyes Eyes: Denies change in vision ENT Ears, Nose, Mouth, and Throat: Denies dizziness and Denies headache(s) Cardiovascular Cardiovascular: Reports as per HPI, Denies dyspnea and Denies dyspnea on exertion Respiratory Respiratory: Reports as per HPI, Denies chest congestion, Denies cough, Denies pain on inspiration, Denies pain with cough, Denies dyspnea, Denies dyspnea on exertion and Denies wheezing Gastrointestinal Gastrointestinal: Reports as per HPI, Denies abdominal pain, Denies diarrhea, Denies nausea and Denies vomiting Genitourinary Genitourinary: Denies system reviewed and no additional complaints, except as documented (denies change in urinary habits) Musculoskeletal Musculoskeletal: Reports as per HPI and Denies back pain Integumentary/Breasts Skin/Breast: Reports as per HPI and Denies rash Neurologic Neurologic: Reports as per HPI, Denies dizziness and Denies headache(s) Allergic/Immunologic Allergic/Immunologic: Denies wheezing PFSH <GROVER Humphrey - Last Filed: 08/09/19 19:14> Social History Smoking/Tobacco Use Status: Former Tobacco Use Alcohol Intake: current Alcohol Intake frequency: 0-2 drinks per day Alcohol type: beer Drug use: Never Substance use type: does not use Do you feel safe at home: Yes Do you feel safe in your relationship?: Yes Exam <GROVER Humphrey - Last Filed: 08/09/19 19:14> Const General: cooperative, healthy appearing, comfortable, no acute distress and well developed Nutritional Appearance: well nourished and obese Orientation: alert, awake and oriented x3 HENMT Head: normal to inspection Ears: hearing grossly normal bilaterally Mouth: moist mucous membranes Chest Chest: normal inspection of the chest, normal palpation of entire chest wall and no crepitus Resp Effort & Inspection: normal respiratory effort, able to speak in complete sentences and no respiratory distress Auscultation: clear to auscultation bilaterally, no rales, no rhonchi and no wheezes Cardio Rate: regular rate Rhythm: abnormal rhythm irregularly irregular Heart Sounds: S1 normal and S2 normal GI Inspection: normal to inspection, no edema, non-distended and obesity Palpation: soft, no hepatosplenomegaly, not firm, no guarding, not rigid and nontender Auscultation: normal bowel sounds Back/Spine/Pelvis Back: no CVA tenderness Thoracic/Lumbar Spine: thoracic and lumbar spine normal to inspection Skin General skin exam: no rashes or lesions noted Trauma: no lacerations or abrasions Neuro General: patient alert, patient awake and patient oriented x3 Cognition: normal cognition Speech: speech normal Gait: normal gait Extrem General: normal to inspection, capillary refill normal, no pedal edema, no calf tenderness and normal gait Psych Appearance: grossly normal and well kempt Mental Status: mental status grossly normal Speech and Movement: speech and movement normal Sign Out <GROVER Humphrey - Last Filed: 08/09/19 19:14> Sign Out Data: Sign Out Comment: Care transitioned to Jordyn Marcus NP, with repeat troponin and disposition pending. Last updated by Priscila Saunders PA at 08/09/19 16:16
[2019-08-09 14:00] LABS: Abs Immature Grans 0.04 k/cumm (0.0-0.09); Absolute Basophil Count 0.03 k/cumm (0.0-0.2); Absolute Eosinophil Count 0.17 k/cumm (0.0-0.7); Absolute Lymphocyte Count 1.89 k/cumm (1.2-3.4); Absolute Monocyte Count 1.15 k/cumm (0.11-0.7); Absolute Neutrophil Count 11.22 k/cumm (1.2-6.7); Basophils % 0.2; Eosinophils % 1.2; HCT 40.9 % (40.0-50.0); HGB 13.8 g/dL (13.5-17.5); Immature Grans % 0.3 %; Mean Corp. HGB Concentration 33.7 g/dL (32.0-36.0); Mean Corpuscular Hemoglobin 27.4 pg (27.0-33.0); Mean Corpuscular Volume 81.3 fL (80-95); Mean Platelet Volume 10.3 fL (8.0-11.0); Monocytes % 7.9; Neutrophils % 77.4; Platelet Count 193 x1000/uL (130-400); RBC 5.03 m/cumm (4.50-6.00); RBC Distribution Width 14.9 % (11.8-14.1)
--- NOTE | 2019-08-09 14:04 | DI.RAD_ITS ---
EXAM: XR CHEST 2V PA LATERAL CLINICAL HISTORY: SOB TECHNIQUE: 2D digital imaging was performed. COMPARISON: XR PORTABLE CHEST AP POST LINE from 12/29/2018 FINDINGS: MEDIASTINUM: Normal. HEART: Normal. PULMONARY VASCULATURE: Normal. LUNGS: Clear. Hyperexpansion of the lungs with flattened diaphragms suggesting underlying COPD. PLEURAL SPACE: No pleural effusion or pneumothorax. BONE:Degenerative changes. Sternal wires are in place. OTHER FINDINGS:Normal. IMPRESSION: No acute pulmonary findings. DATA REPOSITORY: RADIATION DOSE DELIVERED:
[2019-08-09 14:13] LABS: INR 1.1 (0.9-1.1); PTT Activated 21.4 sec (21.0-31.4); Prothrombin Time 10.9 sec (9.3-11.0)
--- NOTE | 2019-08-09 14:21 | DI.VRAD_ITS ---
PROCEDURE INFORMATION: Exam: XR Chest, 2 Views Exam date and time: 08/09/2019 2:05 PM Age: 74 years old Clinical indication: Other: Shortness of breath TECHNIQUE: Imaging protocol: XR of the chest Views: 2 views. COMPARISON: CR XR PORTABLE CHEST AP POST LINE 12/29/2018 1:10 PM FINDINGS: Prior median sternotomy. Interval removal of a right-sided PICC line. The lung michelle are clear bilaterally. No focal pulmonary consolidation is present. The cardiac silhouette is within normal limits. The costophrenic angles are sharp. The bony structures appear unremarkable. IMPRESSION: No evidence of acute cardiopulmonary disease. Dictated and Authenticated by: Johnnie Srivastava MD. Ordering:BREEZY Francois MD
[2019-08-09 14:22] LABS: ALT 19 U/L (16-63); AST 18 U/L (15-37); Albumin 3.6 g/dL (3.4-5.0); Alkaline Phosphatase 140 U/L (46-116); Anion Gap 12.2 mmol/L (3-11); BUN 32 mg/dL (7-18); Bilirubin, Total 0.7 mg/dL (0.2-1.0); CO2 27.8 mmol/L (21.0-32.0); CREATININE 1.72 mg/dL (0.70-1.30); Calcium 8.6 mg/dL (8.5-10.1); Chloride 101 mmol/L (98-107); Estimated GFR 38.96 (mL/min/1.73m2); Glucose 140 mg/dL (74-106); Magnesium 1.4 mg/dL (1.8-2.4); NT-proBNP 1734 pg/mL (<300); Potassium 4.4 mmol/L (3.5-5.1); Sodium 141 mmol/L (136-145); Total Protein 7.6 g/dL (6.4-8.2)
[2019-08-09 14:29] LABS: Troponin I < 0.05 ng/Ml (<0.06)
[2019-08-09 16:47] LABS: Troponin I < 0.05 ng/Ml (<0.06)
--- NOTE | 2019-08-09 17:37 | HPE_ITS ---
Date of service: 08/09/19 Time of Service: 17:37 Assessment and Plan Assessment and plan (1) Sepsis syndrome: Start date: 08/09/19 Start time: 12:00 Status: Acute Assessment and plan: This is a 74-year-old gentleman who had a sudden onset of nausea with vomiting and diaphoresis the day of admission. He chronically has dyspnea upon exertion and has had no recent cough or URI symptoms and has been staying at home with no travel. In the ED was evaluated and found to be tachycardic with a slight leukocytosis but no other evidence of acute infection. Urinalysis was obtained once he was admitted to the floor and he manifested a fever to 38.9 with chills. He was admitted initially for atypical chest pain to have serial troponins with an observation status but was changed to an admission status with early sepsis syndrome with unknown source of infection. He does have breakdown of his skin over his legs and is a diabetic. He will be covered with broad-spectrum antibiotics until blood cultures and urine cultures along with clinical manifestations guide more specific or focused antibiotic therapy. His lactate was elevated and his procalcitonin was slightly elevated with possible sepsis levels. This time I saw the patient he was not have any nausea vomiting but had chills which had changed over to diaphoresis with his fever. He was comfortable. He is a full code. He will be monitored on telemetry with serial troponins to be continued overnight. (2) Nausea and vomiting: Start date: 08/09/19 Start time: 12:00 Status: Active Assessment and plan: Continue gentle IV hydration with follow-up echocardiogram reassess LV function with a history of CHF. His BNP was elevated but not as high as in the past. He will be on clear fluids with sliding scale coverage of his hyperglycemia during his hospital stay. He is not requiring antiemetics presently. (3) Atypical chest pain: Start date: 08/09/19 Status: Acute Assessment and plan: Patient's troponins thus far are negative and we will have serial troponins overnight with telemetry. He is in atrial fibrillation with controlled ventricular rate presently being tachycardic upon presentation with his acute illness. (4) Coronary arteriosclerosis: Status: Chronic Assessment and plan: No evidence of acute ischemia with ongoing serial troponins and telemetry. Follow-up echocardiogram. (5) Diabetes mellitus type 2: Status: Chronic Assessment and plan: Monitor glucometers before meals and at bedtime with short acting insulin coverage for now. Patient's Lantus was held. He may rest art his Lantus in the morning if he is improving with diet intake and stabilizing on treatment for acute sepsis syndrome. (6) Atrial fibrillation: Status: Chronic Assessment and plan: Patient is in atrial fibrillation presently with controlled rate. Continue Eliquis. Cardiac monitoring. The patient's usual medical regimen will be continued. He is not hypotensive with his sepsis syndro me. History of Present Illness History of Present Illness Chief Complaint: Acute onset nausea and vomiting with diaphoresis and tachycardia Narrative: This is a 74-year-old gentleman who had acute onset nausea with emesis and dyspnea with diaphoresis around noon on the day of admission. He denies any diarrhea. He denied any chest pain or chest pressure with this episode but did not have typical angina with his previous CABG in 2007. He has a chronic atrial fibrillation usually with good heart rate control and on Eliquis. After being admitted patient did have chills with fever over 38 ?C. His nausea was improved with clear fluids and IV hydration. He is not had any recent travel and had no prodrome with URI symptoms prior to this presentation. He did not have any hypoxemia. He chronically does have dyspnea on exertion with CHF. Echocardiogram needs to be updated. I did review his past medical history in the ED notes. His EKG did not show any ischemic changes. He initially was admitted for observation for atypical chest pain as a possibility but with his fever and mild leukocytosis with tachycardia upon presentation as well as an elevated lactate and mildly positive procalcitonin, he appears to have a sepsis syndrome without hypotension. Tachycardia has resolved with gentle IV hydration. Review of Systems Narrative: 13 point review of systems otherwise unrevealing or stable. Patient has had cellulitis of his right and left leg in the past with amputations over his right lower extremity more recently. He has an active ulcer over his left large toe which will be seen by podiatry soon. [facility] Medical History Abdominal aortic aneurysm (Chronic) Atrial fibrillation (Chronic 12/28/12) New onset [id number] Atrial fibrillation (Chronic) Central retinal artery occlusion, right eye (Chronic) Chronic kidney disease stage 1 (Chronic) Acute kindye injury on top of chronic kidney disease. Baseline creatinine 1.6. Coronary artery disease (Chronic) Diabetes (Chronic) Hyperlipemia (Acute) Hypothyroidism (Chronic) Hypothyroidism (Chronic) Left heart failure with preserved LV function (Chronic) Peripheral arterial disease (Chronic) Peripheral vascular disease (Chronic) Surgical History Appendectomy Colonoscopy - MAC (05/25/16) Coronary Artery Bypass Gaft (CABG) Social History Smoking/Tobacco Use Status: Former Tobacco Use Alcohol Intake: current Alcohol Intake frequency: 0-2 drinks per day Alcohol type: beer Drug use: Never Substance use type: does not use Do you feel safe at home: Yes Do you feel safe in your relationship?: Yes Meds Home Medications and Allergies Home Medications Medication Instructions Recorded Confirmed Type aspirin 81 mg PO DAILY 11/08/12 08/09/19 History atorvastatin [Lipitor] 40 mg PO DAILY 11/08/12 08/09/19 History levothyroxine 50 mcg PO DAILY 11/08/12 08/09/19 History metoprolol tartrate 25 mg PO BID #60 tab 01/02/13 08/09/19 Rx Eliquis 5 mg PO BID 07/29/18 08/09/19 History Humalog U-100 Insulin 20 unit SUBCUT BID 07/29/18 08/09/19 History Lantus Solostar U-100 Insulin 60 units SQ HS 07/29/18 08/09/19 History Refresh Tears 1 drp OPHTHALMIC (EYE) TID 08/04/18 08/09/19 History brimonidine 1 drp OPHTHALMIC (EYE) BID 08/04/18 08/09/19 History lisinopril 30 mg PO DAILY 08/04/18 08/09/19 History prednisolone acetate 1 drp OPHTHALMIC (EYE) DAILY 08/04/18 08/09/19 History timolol maleate 1 drp OPHTHALMIC (EYE) BID 08/04/18 08/09/19 History furosemide 20 mg tablet 20 mg PO DAILY 08/03/19 08/09/19 History Allergies Allergy/AdvReac Type Severity Reaction Status Date / Time amoxicillin trihydrate Allergy Intermediate Hives Unverified 08/09/19 13:30 [From Augmentin] simvastatin Allergy Unknown Unverified 08/09/19 13:30 [From Vytorin 10-10] Exam Narrative Exam Narrative: General: Patient is moderately obese, appears appropriate for age and in no acute distress. He is alert and oriented x3. HEENT: Normocephalic with balding, eyes with pupils equal and reactive to light symmetrically, extraocular movement intact and sclera anicteric. Oropharynx with dry oral mucosa. Neck: Supple without JVD. Heart: Irregular irregular rhythm with normal rate at the time of my exam and no appreciable murmurs or gallops. Lungs: Clear to auscultation percussion with bronchovesicular and fair breath sounds diffusely. No adventitious sounds with no localized rales or rhonchi and no wheeze. Back: Stooped posture with no CVA tenderness. Abdomen: Obese contour, soft and nontender to palpation with no palpable hepat osplenomegaly. Genitalia/rectal: Exam deferred. Extremities: Nonpitting edema over both lower extremities with chronic venous stasis changes over the anterior tibialis areas of both legs with atrophic skin, hyperpigmentation and atrophic scars but no open ulcers over the ankles. There is a dry ulcer over the solar aspect of the left large toe. 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 Peripheral pulses are decreased with fair capillary refill. There is no cyanosis or clubbing. Skin: Warm, moist with chronic actinic changes over the sun exposed areas. Neuro: Cranial nerves II through XII gross intact, no focalizing motor deficits. Decreased sensation of lower extremities. Psych: Normal affect and mood, remote and recent memory appear to be intact. Results Imaging Imaging Studies: Exam: XR Chest, 2 Views Exam date and time: 08/09/2019 2:05 PM Age: 74 years old Clinical indication: Other: Shortness of breath TECHNIQUE: Imaging protocol: XR of the chest Views: 2 views. COMPARISON: CR XR PORTABLE CHEST AP POST LINE 12/29/2018 1:10 PM FINDINGS: Prior median sternotomy. Interval removal of a right-sided PICC line. The lung michelle are clear bilaterally. No focal pulmonary consolidation is present. The cardiac silhouette is within normal limits. The costophrenic angles are sharp. The bony structures appear unremarkable. IMPRESSION: No evidence of acute cardiopulmonary disease. Dictated and Authenticated by: Johnnie Srivastava MD Labs Result diagrams: 08/09/19 13:30 08/09/19 13:30 Labs: Laboratory Results - last 24 hr 08/09/19 08/09/19 08/09/19 13:30 13:30 13:30 WBC 14.50 H RBC 5.03 Hgb 13.8 Hct 40.9 MCV 81.3 MCH 27.4 MCHC 33.7 RDW 14.9 H Plt Count 193 MPV 10.3 Immature Gran % 0.3 Neutrophils % 77.4 Lymphocytes % 13.0 Monocytes % 7.9 Eosinophils % 1.2 Basophils % 0.2 Absolute Neutrophils 11.22 H Absolute Lymphocytes 1.89 Absolute Monocytes 1.15 H Absolute Eosinophils 0.17 Absolute Basophils 0.03 PT 10.9 INR 1.1 APTT 21.4 Sodium 141 Potassium 4.4 Chloride 101 Carbon Dioxide 27.8 Anion Gap 12.2 H BUN 32 H Creatinine 1.72 H Estimated GFR/1.73 m2 38.96 Glucose 140 H Calcium 8.6 Magnesium 1.4 L Total Bilirubin 0.7 AST 18 ALT 19 Alkaline Phosphatase 140 H Troponin I < 0.05 NT-Pro-B Natriuret Pep 1734 H Total Protein 7.6 Albumin 3.6 08/09/19 16:25 WBC RBC Hgb Hct MCV MCH MCHC RDW Plt Count MPV Immature Gran % Neutrophils % Lymphocytes % Monocytes % Eosinophils % Basophils % Absolute Neutrophils Absolute Lymphocytes Absolute Monocytes Absolute Eosinophils Absolute Basophils PT INR APTT Sodium Potassium Chloride Carbon Dioxide Anion Gap BUN Creatinine Estimated GFR/1.73 m2 Glucose Calcium Magnesium Total Bilirubin AST ALT Alkaline Phosphatase Troponin I < 0.05 NT-Pro-B Natriuret Pep Total Protein Albumin Last Vital Signs Temp 36.9 C 08/09/19 13:30 Pulse 76 08/09/19 17:30 Resp 17 08/09/19 17:31 BP 124/74 08/09/19 17:30 Pulse Ox 98 08/09/19 17:31
[2019-08-09 18:04] LABS: TSH 2.48 uIU/mL (0.36-3.74)
[2019-08-09] MEDS: Acetaminophen 325 MG TAB 650 MG PO (20:05)
[2019-08-09] MEDS: Apixaban 5 MG TAB PO (20:06)
[2019-08-09] MEDS: Metoprolol 25 MG TAB PO (20:06)
[2019-08-09] MEDS: Refresh PLUS Eye Drops 0.4ml 1 EACH OD (20:06)
[2019-08-09] MEDS: Normal Saline 1,000 ML 75 ML IV (20:07)
[2019-08-09 20:47] LABS: Bilirubin Negative (Negative); Blood Trace-intact (Negative); Clarity Clear (Clear); Glucose 500 mg/dL (Negative); Ketones Negative (Negative); Leukocyte Esterase Trace (Negative); Nitrite Negative (Negative); Urobilinogen 0.2 EU/dL (Up TO 0.2); pH 5.5 (5-8)
[2019-08-09 20:56] LABS: Bacteria Rare HPF (Negative); C & S Indicated? No; Crystals Negative HPF (Negative); Epithelial Cells Negative HPF (Negative); Mucus Negative (Negative); RBC 0-2 HPF (0-2); WBC 0-2 HPF (0-5)
[2019-08-09 20:58] LABS: Troponin I < 0.05 ng/Ml (<0.06)
[2019-08-09 21:04] LABS: Lactate 1.9 mmol/L (0.6-1.4)
[2019-08-09] MEDS: Timolol 0.5% 5 ML BTL OP (21:05)
[2019-08-09] MEDS: Insulin Aspart 300 UNITS/3 ML PEN SC ×2 (21:34→21:55)
[2019-08-09 21:46] LABS: Procalcitonin 0.9 ng/mL
[2019-08-09] MEDS: MAGNESIUM SULFATE 2 GM/50 ML BAG IVPB (23:26)
[2019-08-10] VITALS (9 sets, daily range): BP systolic 111–180; BP diastolic 62–86; PULSE 63–75; RESP 1–20; TEMP 36.2–37.5; O2SAT 95–99
--- NOTE | 2019-08-10 | DI.CT_ITS ---
EXAM: CT CHEST/ABD/PEL WO CLINICAL HISTORY: N/V, SOB, Febrile,. TECHNIQUE: Imaging Protocol: Axial computed tomography images with coronal and sagittal reformatted images were created and reviewed. FINDINGS: Chest: Thyroid: Grossly unremarkable. Mediastinum: Mildly enlarged lymph nodes in the mediastinum. No evidence of thoracic adenopathy. Heart: No cardiomegaly. No pericardial effusion. Marked coronary artery calcifications. Tracheobronchial tree: Unremarkable. Pleural Space: No pleural effusion or pneumothorax. Lungs: Emphysematous changes are present. Dependent atelectasis in the lung bases. No focal consoli dating infiltrates. 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 Sternal wires are in place. Lymph Nodes: No pathologically enlarged lymph nodes are seen in the mediastinum. Thoracic Aorta: Dilated. Atherosclerosis. ABDOMEN: Liver: Normal density. No measurable mass. Gallbladder and biliary tract: No radiodense calculus or biliary ductal dilation. Pancreas: Normal density, no abnormal calcifications or inflammatory process. Spleen: Normal. Kidneys: Normal size, contour and axis. No radiodense stones or obstructive uropathy. No masses seen. Adrenal glands: No masses seen. Lymph nodes: Within normal limits. Abdominal Aorta: 3.3 cm infrarenal abdominal aortic aneurysm. Atherosclerosis. PELVIS: Bladder: Symmetric distention, no gross wall thickening. Bowel: No obstruction or bowel wall thickening. No evidence of an acute appendicitis. Small hiatal h ernia. Peritoneal cavity: No ascites, collection or mesenteric inflammatory response. Reproductive organs: Within normal limits. Bones: Degenerative changes are present. Soft Tissues: Within normal limits. IMPRESSION: 1. No evidence of an acute abdominal or pelvic process. 2. 3.3 cm infrarenal abdominal aortic aneurysm. 3. No focal consolidating infiltrates. 4. Emphysematous changes in the lungs. 5. Dependent atelectasis. DATA REPOSITORY: All CT scans at this facility are submitted to the National Radiology Data Registry (NRDR) Dose Index Registry (DIR) with the [employer] (ACR). RADIATION OPTIMIZATION: All CT scans at this facility use at least one of these dose optimization te chniques: automated exposure control; mA and/or kV adjustment per patient size (includes targeted exa ms where dose is matched to clinical indication); or iterative reconstruction.
[2019-08-10] MEDS: MEROPENEM 1 GM in Normal Saline 100 ML IVPB ×3 (00:45→22:05)
--- NOTE | 2019-08-10 07:00 | DI.US_ITS ---
APPROVED REPORT EXAM: Comprehensive 2D, Doppler, and color-flow Echocardiogram Patient Location: In-Patient Room/Bed: 215A Field Superintendent: Judith Willams RDCS (AE) Indications: CHF Conclusion Left Ventricle : The left ventricle is normal size. The overall left ventricular systolic function a ppears normal. The posterior wall thickness is normal. The septum is normal. There is normal LV segme ntal wall motion. There is evidence of high LV filling pressures. LVEF is 50-55%. Right Ventricle : Right ventricle is not well visualized. Atria : The left atrium size is normal. Right atrium is not well visualized. Aortic Valve : The Aortic valve is sclerotic. Aortic valve is trileaflet. There is no aortic valvula r stenosis. Trace aortic regurgitation. Mitral Valve : There is mitral annular calcification. No evidence of mitral valve stenosis. Mild mitr al regurgitation. Great Vessels : IVC is normal in size and collapses >50% with inspiration. Mid RVSP is 40-45 mmHg. Compared to echocardiogram from 07/09/2016: Patient's estimated pulmonary artery pressures have increa sed slightly. Wall motion Left Ventricle The left ventricle is normal size. The overall left ventricular systolic function appears normal. The posterior wall thickness is normal. The septum is normal. There is normal LV segmental wall motion. There is evidence of high LV filling pressures. LVEF is 50-55%. Right Ventricle Right ventricle is not well visualized. Right ventricular systolic function could not be assessed. Atria The left atrium size is normal. Right atrium is not well visualized. Aortic Valve The Aortic valve is sclerotic and not well visualized. Aortic valve is trileaflet. There is no aortic valvular stenosis. Trace aortic regurgitation. Mitral Valve There is mitral annular calcification. No evidence of mitral valve stenosis. Mild mitral regurgitatio n. Tricuspid Valve Tricuspid valve is grossly normal in structure and function. There is no tricuspid valve stenosis. Tr hailey tricuspid regurgitation. Pulmonic Valve Pulmonic valve is not well visualized. There is no pulmonic valvular stenosis. There is no pulmonic v alvular regurgitation. Great Vessels The aortic root is normal in size. The pulmonary artery is normal. Ascending aorta is not well visual ized. IVC is normal in size and collapses >50% with inspiration. Mid RVSP is 40-45 mmHg. Pericardium There is no pericardial effusion. There is no pleural effusion. 2D Dimensions IVSD d PLAX 1.00 cm M: 0.6-1.2 LA vol/ BSA A2C s A-L 29.7 mL/m2 LVPW d PLAX 1.00 cm M: 0.6 - 1.2 LA vol/ BSA A4C s A-L 27.3 mL/m2 LVID d PLAX 5.02 cm M: 4.2 - 5.8 LA Vol/ BSA Biplane s A-L 28.8 mL/m2 LVDs 3.35 cm M: 2.5 - 4.0 LA Area A4C s MOD 22.40 cm2 Ao Root d 3.28 cm M: 3.1 - 3.7 LA Area A2C s MOD 23.64 cm2 RA Area A4C 19.25 cm2 RA Vol/ BSA A4C s A-L 24.2 mL/m2 LV EF Teichholz 60.3 % FS 32.30 % LV Diastology MV E' medial 0.086 (>0.07 m/s) E/A Ratio 4.1 LV E/e MED 14.40 (<14) MV E Vmax 1.23 (0.4-1.3 m/s) MV E' lateral 0.128 (>0.1 m/s) MV A Vmax 0.30 (0.4-1.3 m/s) LV E/e LAT 9.60 (<14) MV E/A Ratio 3.71 MV E/E' medial 14.40 MV E/E' lateral 9.60 Aortic Valve LVOT Vmax 0.80 m/s LVOT Mean Alen. 0.51 m/s LVOT Peak Grad 2.5 mmHg LVOT Mean Grad 1.2 mmHg LVOT VTI 0.189 m AoV Vmax 1.46 (0.5-1.3 m/s) Velocity Ratio 0.54 AoV Mean Alen. 1.04 m/s AoV Peak Grad 8.5 mmHg AoV Mean Grad 4.8 (<5 mmHg) AoV VTI 0.343 (0.18-0.25 m) Mitral Valve MV DT 182 (160-240 msec) MV PHT 53 msec MV Area PHT 4.16 cm2 Pulmonary Valve PV Vmax 0.71 (0.5-1.5 m/s) RVOT Peak Gr. 1.53 mmHg PV Peak Grad 2.0 mmHg RVOT Mean Gr. 0.80 mmHg PV Mean Grad 1.1 mmHg RVOT VTI 0.144 m PV VTI 0.176 m RVOT Vmax 0.62 m/s Tricuspid Valve TR Peak Grad 41.6 mmHg TR Vmax 3.23 m/s RA Pressure 3.00 mmHg RVSP (TR) 44.6 mmHg
[2019-08-10 07:09] LABS: HCT 36.8 % (40.0-50.0); HGB 12.3 g/dL (13.5-17.5); Mean Corp. HGB Concentration 33.4 g/dL (32.0-36.0); Mean Corpuscular Hemoglobin 27.3 pg (27.0-33.0); Mean Corpuscular Volume 81.8 fL (80-95); Mean Platelet Volume 10.4 fL (8.0-11.0); Platelet Count 109 x1000/uL (130-400); White Blood Cell Count 7.72 k/cumm (4.4-10.8)
[2019-08-10 07:16] LABS: ALT 12 U/L (16-63); AST 17 U/L (15-37); Alkaline Phosphatase 109 U/L (46-116); Anion Gap 10.3 mmol/L (3-11); BUN 27 mg/dL (7-18); CO2 24.7 mmol/L (21.0-32.0); CREATININE 1.56 mg/dL (0.70-1.30); Calcium 7.7 mg/dL (8.5-10.1); Chloride 101 mmol/L (98-107); Estimated GFR 43.61 (mL/min/1.73m2); Glucose 244 mg/dL (74-106); Potassium 4.4 mmol/L (3.5-5.1); Sodium 136 mmol/L (136-145); Total Protein 6.4 g/dL (6.4-8.2)
[2019-08-10 07:18] LABS: Troponin I < 0.05 ng/Ml (<0.06)
[2019-08-10] MEDS: Timolol 0.5% 5 ML BTL OP ×2 (08:57→20:22)
[2019-08-10] MEDS: Insulin Aspart 300 UNITS/3 ML PEN SC ×4 (08:58→22:08)
[2019-08-10] MEDS: Metoprolol 25 MG TAB PO ×2 (08:59→20:21)
[2019-08-10] MEDS: Lisinopril 10 MG TAB 30 MG PO (08:59)
[2019-08-10] MEDS: Aspirin E.C. 81 MG TABEC PO (08:59)
[2019-08-10] MEDS: Apixaban 5 MG TAB PO ×2 (08:59→20:21)
[2019-08-10] MEDS: Refresh PLUS Eye Drops 0.4ml 1 EACH OD ×3 (09:00→20:22)
[2019-08-10 09:02] LABS: Lipase 138 U/L (73-393); Magnesium 1.9 mg/dL (1.8-2.4)
[2019-08-10] MEDS: Normal Saline 1,000 ML 75 ML IV (10:20)
--- NOTE | 2019-08-10 10:38 | INITIAL_ITS ---
- If Service Date Differs Date of service: 08/10/19 Time of Service: 10:38 Care Management Initial Assess REASON FOR HOSPITALIZATION:: Sepsis syndrome PAST MEDICAL HISTORY/PAST SURGICAL HISTORY:: Medical History: Abdominal aortic aneurysm (Chronic). Atrial fibrillation (Chronic 12/28/12). New onset [id number]. Atrial fibrillation (Chronic). Central retinal artery occlusion, right eye (Chronic). Chronic kidney disease stage 1 (Chronic). Acute kindye injury on top of chronic kidney disease. Baseline creatinine 1.6. Coronary artery disease (Chronic). Diabetes (Chronic). Hyperlipemia (Acute). Hypothyroidism (Chronic). Hypothyroidism (Chronic). Left heart failure with preserved LV function (Chronic). Peripheral arterial disease (Chronic). Peripheral vascular disease (Chronic). Surgical History: Appendectomy. Colonoscopy - MAC (05/25/16). Coronary Artery Bypass Gaft (CABG) PREVIOUS FUNCTIONAL STATUS/SOCIAL/FAMILY SUPPORTS:: Nick lives with his Jessie in [facility] in a single family home. They have 4 children who live locally. Hi describes them as being very supportive. 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 CURRENT FUNCTIONAL STATUS:: Hi was sitting up in a chair when CM met [facility] him. He was pleasant and agreeable to conversation. Jessie was with him and they shared their concerns about a bill they received from [facility]. Last summer Hi was being treated for cellulitis and came to the infusion center for dressing changes and infusions daily. The caim was denied and the bill was for over $50,000. CM investigated the bill and contacted [facility] [place].(He has Insurance). Nick was advised to resubmit his paperwork with the form that was required to process the claim. CM offered to facilitate this but Hi stated that he expected to be discharged tomorrow so he would take care of it. ADVANCE DIRECTIVES:: On file. Spouse Jessie is [employer] Has patient been provided with information about the portal?: Yes Did the patient sign up for the portal?: No CODE STATUS:: Full Code INSURANCE COVERAGE / FINANCIAL ISSUES:: Medicare. for Life CURRENT HOME/COMMUNITY SERVICES/EQUIPMENT:: none PRIMARY CARE PHYSICIAN:: William Javier POTENTIAL DISCHARGE NEEDS:: Followup with PCP and discharge plan of care PATIENT/FAMILY EDUCATION NEEDS:: Discharge plan, limitations, follow up plan, Ask Me Three. TRANSPORTATION:: via private vehicle with when ready PLAN:: Nick will be discharged home with no new services. He will follow up with his PCP and discharge plan of care. CM will continue to support patient, family and discharge planning needs and concerns.
[2019-08-10] MEDS: Albuterol/Ipratropium 3 ML UPD VIAL UPD (10:47)
--- NOTE | 2019-08-10 10:59 | W.NUTCONSULT ---
Date of service: 08/10/19 Time of Service: 10:59 Nutritional Consult ASSESSMENT: 74 year old male admitted with sepsis syndrome with n/v. PMH: CHF, CAD, DM2, PVD, CABG 2007, hx of osteomyelitis of right foot- resolved. BMI indicates class 2 obesity. Met with Nick and today. He is alert and ready to go home. Continues on clear liquids, but would like diet advanced. Labs indicate elevated blood sugars, DM consult pending. Does not appear to be at risk for nutritional decline. MD to advance diet when appropriate. MONITORING AND EVALUATION: diet advancement, po intake, labs, weight Time Spent in Nutritional Counseling and Treatment: 15 min spent face to face
[2019-08-10] MEDS: methylPREDNISolone SUCC 125 MG VIAL 60 MG IVP ×2 (11:05→18:13)
--- NOTE | 2019-08-10 11:59 | W.INDIABCONS ---
Date of service: 08/10/19 Time of Service: 12:00 Diabetes Inpatient Consult DESCRIPTION/ASSESSMENT: Appreciate diabetes consult for Mr. Stapleton who is hospitalized with sepsis. A1c 8.4 BMI 35 GFR 43 Mr. Romero is newly admitted with elevated blood sugars of 230 this morning; 324 at admission taking moderate insulin correction. He is eating 100% of his meals so far. At home he takes 60u basal insulin and 20u mealtime insulin to cover food per his medication list. INTERVENTION: Given his septic state, hyperglycemia, and steroid administration, support adding back his glargine as indicated in the H&P and see if blood sugars recover. PLAN: Will follow blood sugars and meet with him prior to discharge as possible Time Spent in Nutritional Counseling and Treatment: 0 minutes face to face
--- NOTE | 2019-08-10 12:40 | W.PM.PROGNOT ---
Date of Service Date of service: 08/10/19 Time of Service: 12:40 Assessment and Plan Assessment and plan (1) Sepsis syndrome: Start date: 08/10/19 Start time: 13:11 Status: Resolved Assessment and plan: Resolved. VS stable. Afebrile since overnight. Not requiring oxygen. Telemetry with afib in 70's on chronic anticoagulation. WBC normalized. Procalcitonin elevated. CRP 8.13 Patient did endorse cough with rendon sputum, question viral syndrome with bacterial component, however he also did vomit, consider aspiration or abdominal process. CT chest/abd/pelvis with no evidence of acute abdominal or pelvic process. 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 Likely brochitis. Will wait for blood cultures to result and treat approriatley. Possible discharge home tomorrow. (2) Nausea and vomiting: Start date: 08/10/19 Start time: 13:24 Status: Resolved Assessment and plan: Resolved. One episode overnight otherwise reports no n/v. Tolerating diet. (3) Atypical chest pain: Start date: 08/10/19 Start time: 13:27 Status: Resolved Assessment and plan: Resolved one episode prior to vomiting last night. Echo pending.Continue to monitor on teley a fib controlled. Serial troponins negative. (4) Coronary arteriosclerosis: Start date: 08/10/19 Start time: 13:28 Status: Chronic Assessment and plan: No evidence of acute ischemia with ongoing serial troponins and telemetry. Follow-up echocardiogram. (5) Diabetes mellitus type 2: Start date: 08/10/19 Start time: 13:31 Status: Chronic Assessment and plan: Stable. BGL are in 200's and will likely increase in the setting of steroids. Continue SSI, with coverage. Change coverage to resistant consider acting ling (6) Atrial fibrillation: Start date: 08/10/19 Start time: 13:34 Status: Chronic Assessment and plan: Patient is in atrial fibrillation presently with controlled rate. Continue Eliquis. Cardiac monitoring. The patient's usual medical regimen will be continued. Above case discussed with Dr. Herrera who is in agreement. Subjective Subjective Patient reports: no new complaints and feels better Interval history since last seen: 74 y.o male admitted for fever, n/v. Procalcitonin positive. Initiated on vanco and meropenem, unsure of source at this time. Started on nebs and updrafts prn for cough with rendon sputum production, lungs likely source. Sputum cx ordered. . Not requiring oxygen. Influenza A and B negative. Blood cultures pending. He states he feels better. He denies CP, SOB, N/V/D. On teley with controlled afib. Exam Narrative Exam Narrative: General: Patient is moderately obese, He is alert and oriented x3. HEENT: Normocephalic eyes with pupils equal and reactive to light symmetrically, extraocular movement intact and sclera anicteric. Oropharynx with dry oral mucosa. Neck: Supple without JVD. Heart: Irregular irregular rhythm with normal rate at the time of my exam and no appreciable murmurs or gallops. Lungs:Wheeze scattered to bilateral lungs. Back: Stooped posture with no CVA tenderness. Abdomen: Obese contour, soft and nontender to palpation with no palpable hepatosplenomegaly. Genitalia/rectal: Exam deferred. Extremities: Nonpitting edema over both lower extremities with chronic venous stasis changes over the anterior tibialis areas of both legs with atrophic skin, hyperpigmentation and atrophic scars but no open ulcers over the ankles. There is a dry ulcer over the solar aspect of the left large toe. 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 Peripheral pulses are decreased with fair capillary refill. There is no cyanosis or clubbing. Skin: Warm, moist with chronic actinic changes over the sun exposed areas. Neuro: Cranial nerves II through XII gross intact, no focalizing motor deficits. Decreased sensation of lower extremities. Psych: Normal affect and mood, remote and recent memory appear to be intact. Objective Objective Clinical Data: Abnormal lab results 08/09/19 08/09/19 08/09/19 Range/Units 13:30 13:30 20:40 WBC 14.50 H (4.4-10.8) k/cumm Hgb (13.5-17.5) g/dL Hct (40.0-50.0) % RDW 14.9 H (11.8-14.1) % Plt Count (130-400) x1000/uL Absolute Neutrophils 11.22 H (1.2-6.7) k/cumm Absolute Monocytes 1.15 H (0.11-0.7) k/cumm Anion Gap 12.2 H (3-11) mmol/L BUN 32 H (7-18) mg/dL Creatinine 1.72 H (0.70-1.30) mg/dL Glucose 140 H (74-106) mg/dL Lactate (0.6-1.4) mmol/L Calcium (8.5-10.1) mg/dL Magnesium 1.4 L (1.8-2.4) mg/dL ALT (16-63) U/L Alkaline Phosphatase 140 H (46-116) U/L NT-Pro-B Natriuret Pep 1734 H (<300) pg/mL Albumin (3.4-5.0) g/dL Urine Blood Trace-intact H (Negative) Ur Leukocyte Esterase Trace H (Negative) Urine Glucose 500 H (Negative) mg/dL 08/09/19 08/10/19 08/10/19 Range/Units 20:57 06:20 06:20 WBC (4.4-10.8) k/cumm Hgb 12.3 L (13.5-17.5) g/dL Hct 36.8 L (40.0-50.0) % RDW 15.0 H (11.8-14.1) % Plt Count 109 L (130-400) x1000/uL Absolute Neutrophils (1.2-6.7) k/cumm Absolute Monocytes (0.11-0.7) k/cumm Anion Gap (3-11) mmol/L BUN 27 H (7-18) mg/dL Creatinine 1.56 H (0.70-1.30) mg/dL Glucose 244 H D (74-106) mg/dL Lactate 1.9 H (0.6-1.4) mmol/L Calcium 7.7 L (8.5-10.1) mg/dL Magnesium (1.8-2.4) mg/dL ALT 12 L (16-63) U/L Alkaline Phosphatase (46-116) U/L NT-Pro-B Natriuret Pep (<300) pg/mL Albumin 3.0 L (3.4-5.0) g/dL Urine Blood (Negative) Ur Leukocyte Esterase (Negative) Urine Glucose (Negative) mg/dL Vital Signs Temperature 37.5 C 03/16/20 07:24 Temperature Source Tympanic 08/10/19 07:24 Pulse 70 08/10/19 10:48 Pulse Rhythm Irregular 08/10/19 05:28 Pulse 85 08/09/19 17:46 Respiratory Rate 18 08/10/19 10:48 Respiratory Effort Non-Labored 08/10/19 05:28 Respiratory Depth Normal 08/10/19 05:28 Respiratory Pattern Normal 08/10/19 05:28 Blood Pressure 127/67 08/10/19 07:24 Blood Pressure Mean 78 08/09/19 17:46 Blood Pressure Position Sitting 08/09/19 13:24 Pulse Oximetry 97 08/10/19 10:51 Oxygen Delivery Method Room Air 08/10/19 10:51 Oxygen Flow Rate 0 08/10/19 10:51 Pain Level 0 08/10/19 07:24 Intake & Output 08/09/19 08/10/19 08/10/19 23:59 11:59 23:59 Intake Total 2120 / 2120 Output Total 450 / 450 900 / 900 Balance -450 / -450 1220 / 1220 Weight 130.5 kg 130.2 kg Intake: IV 1400 / 1400 Oral 720 / 720 Output: Urine 450 / 450 900 / 900 Other: Urine Color Pale Straw Yellow Urine Appearance Clear Clear Urine Odor None Normal Voiding Methods Urinal Urinal Laboratory Results WBC 7.72 k/cumm (4.4-10.8) D 08/10/19 06:20 RBC 4.50 m/cumm (4.50-6.00) 08/10/19 06:20 Hgb 12.3 g/dL (13.5-17.5) L 08/10/19 06:20 Hct 36.8 % (40.0-50.0) L 08/10/19 06:20 MCV 81.8 fL (80-95) 08/10/19 06:20 MCH 27.3 pg (27.0-33.0) 08/10/19 06:20 MCHC 33.4 g/dL (32.0-36.0) 08/10/19 06:20 RDW 15.0 % (11.8-14.1) H 08/10/19 06:20 Plt Count 109 x1000/uL (130-400) L 08/10/19 06:20 MPV 10.4 fL (8.0-11.0) 08/10/19 06:20 Immature Gran % 0.3 % 08/09/19 13:30 Neutrophils % 77.4 08/09/19 13:30 Lymphocytes % 13.0 08/09/19 13:30 Monocytes % 7.9 08/09/19 13:30 Eosinophils % 1.2 08/09/19 13:30 Basophils % 0.2 08/09/19 13:30 Absolute Neutrophils 11.22 k/cumm (1.2-6.7) H 08/09/19 13:30 Absolute Lymphocytes 1.89 k/cumm (1.2-3.4) 08/09/19 13:30 Absolute Monocytes 1.15 k/cumm (0.11-0.7) H 08/09/19 13:30 Absolute Eosinophils 0.17 k/cumm (0.0-0.7) 08/09/19 13:30 Absolute Basophils 0.03 k/cumm (0.0-0.2) 08/09/19 13:30 PT 10.9 sec (9.3-11.0) 08/09/19 13:30 INR 1.1 (0.9-1.1) 08/09/19 13:30 APTT 21.4 sec (21.0-31.4) 08/09/19 13:30 Sodium 136 mmol/L (136-145) 08/10/19 06:20 Potassium 4.4 mmol/L (3.5-5.1) 08/10/19 06:20 Chloride 101 mmol/L (98-107) 08/10/19 06:20 Carbon Dioxide 24.7 mmol/L (21.0-32.0) 08/10/19 06:20 Anion Gap 10.3 mmol/L (3-11) 08/10/19 06:20 BUN 27 mg/dL (7-18) H 08/10/19 06:20 Creatinine 1.56 mg/dL (0.70-1.30) H 08/10/19 06:20 Estimated GFR/1.73 m2 43.61 (mL/min/1.73m2) 08/10/19 06:20 Glucose 244 mg/dL (74-106) H D 08/10/19 06:20 Lactate 1.9 mmol/L (0.6-1.4) H 08/09/19 20:57 Calcium 7.7 mg/dL (8.5-10.1) L 08/10/19 06:20 Magnesium 1.9 mg/dL (1.8-2.4) 08/10/19 06:20 Total Bilirubin 1.0 mg/dL (0.2-1.0) 08/10/19 06:20 AST 17 U/L (15-37) 08/10/19 06:20 ALT 12 U/L (16-63) L 08/10/19 06:20 Alkaline Phosphatase 109 U/L (46-116) 08/10/19 06:20 Troponin I < 0.05 ng/Ml (<0.06) 08/10/19 06:20 NT-Pro-B Natriuret Pep 1734 pg/mL (<300) H 08/09/19 13:30 Total Protein 6.4 g/dL (6.4-8.2) 08/10/19 06:20 Albumin 3.0 g/dL (3.4-5.0) L 08/10/19 06:20 Lipase 138 U/L (73-393) 08/10/19 06:20 Procalcitonin 0.9 ng/mL 08/09/19 20:57 TSH 2.48 uIU/mL (0.36-3.74) 08/09/19 16:25 Urine Color Yellow (Yellow) 08/09/19 20:40 Urine Clarity Clear (Clear) 08/09/19 20:40 Urine pH 5.5 (5-8) 08/09/19 20:40 Ur Specific [place] 1.020 (1.005-1.025) 08/09/19 20:40 Urine Protein Negative mg/dL (Negative) 08/09/19 20:40 Urine Ketones Negative mg/dL (Negative) 08/09/19 20:40 Urine Blood Trace-intact (Negative) H 08/09/19 20:40 Urine Nitrite Negative (Negative) 08/09/19 20:40 Urine Bilirubin Negative (Negative) 08/09/19 20:40 Urine Urobilinogen 0.2 EU/dL (Up TO 0.2) 08/09/19 20:40 Ur Leukocyte Esterase Trace (Negative) H 08/09/19 20:40 Urine RBC 0-2 HPF (0-2) 08/09/19 20:40 Urine WBC 0-2 HPF (0-5) 08/09/19 20:40 Ur Epithelial Cells Negative HPF (Negative) 08/09/19 20:40 Urine Crystals Negative HPF (Negative) 08/09/19 20:40 Urine Bacteria Rare HPF (Negative) 08/09/19 20:40 Urine Mucus Negative (Negative) 08/09/19 20:40 Ur Culture Indicated? No 08/09/19 20:40 Urine Glucose 500 mg/dL (Negative) H 08/09/19 20:40
[2019-08-10 12:52] LABS: C-Reactive Protein 8.13 mg/dL (0.0-0.3)
--- NOTE | 2019-08-10 13:08 | PHA.ADMREV ---
Pharmacy Clinical Review - Admission Clinical Review (Last Reviewed 08/09/19 @ 23:26 by Jorge Wahl) Sepsis syndrome (Acute) Atypical chest pain (Acute) Shortness of breath (Acute) Nausea and vomiting (Active 12/28/12) amoxicillin trihydrate [From Augmentin] Allergy (Intermediate, Unverified 08/09/19 13:30) Hives simvastatin [From Vytorin 10-10] Allergy (Unknown, Unverified 08/09/19 13:30) Height 6 ft 3 in Weight 130.2 kg - Renal Dosing Renal Dosing: BUN 27 mg/dL (7-18) H 08/10/19 06:20 Creatinine 1.56 mg/dL (0.70-1.30) H 08/10/19 06:20 Medications needing adjustments: Reviewed (Crcl ~59.5 mL/min using adjusted body weight, current meds okay) - Anticoagulation Anticoagulation: Hgb 12.3 g/dL (13.5-17.5) L 08/10/19 06:20 Hct 36.8 % (40.0-50.0) L 08/10/19 06:20 Plt Count 109 x1000/uL (130-400) L 08/10/19 06:20 INR 1.1 (0.9-1.1) 08/09/19 13:30 Creatinine 1.56 mg/dL (0.70-1.30) H 08/10/19 06:20 DVT Prohphylaxis: N/A Therapeutic Anticoagulation: Reviewed Medications: Apixaban - Opiate Usage Evaluate Pain Scale/Pains Meds: N/A Scheduled Bowel Reg ordered if on Opiates?: No (PRN meds ordered) - Relevant Labs Sodium 136 mmol/L (136-145) 08/10/19 06:20 Potassium 4.4 mmol/L (3.5-5.1) 08/10/19 06:20 Chloride 101 mmol/L (98-107) 08/10/19 06:20 Magnesium 1.9 mg/dL (1.8-2.4) 08/10/19 06:20 C-Reactive Protein 8.13 mg/dL (0.0-0.3) H 08/10/19 06:20 Procalcitonin 0.6 ng/mL 08/09/19 20:57 Electrolytes, C-Reactive P, ESR: Reviewed - Antimicrobial Stewardship Antibiotic appropriateness: Reviewed (meropenem and vanco) Surgical Abx d/c within 24 hr: N/A Culture review/Resistance: Reviewed (blood and urine cultures pending; rapid flu negative) - DM Control DM Control: Glucose 244 mg/dL (74-106) H D 08/10/19 06:20 Finger Stick Blood Glucose 247 Finger Stick Blood Glucose 247 Finger Stick Blood Glucose 230 Finger Stick Blood Glucose 230 Insulin Dosing: Reviewed (scheduled glargine and sliding scale aspart ordered) - Heart Failure/NE Heart Failure/NE: Troponin I < 0.05 ng/Ml (<0.06) 08/10/19 06:20 NT-Pro-B Natriuret Pep 1734 pg/mL (<300) H 08/09/19 13:30 EF%, AGUSTINA's, B-Blockers, Diuretics: Reviewed (furosemide, lisinopril, metoprolol) - BP Control BP Control: Blood Pressure 127/67 Blood Pressure 180/80 If elevated: Reviewed - QTc Review If Elevated: Reviewed (QTc 435) - IV to PO Switch IV Medications: Reviewed - Home Meds Home Med List reviewed: Reviewed (Aspirin may enhance the adverse/toxic effect of apixaban (increased bleed risk).) Relevent Home Meds Not ordered & why?: insulin lispro (has sliding scale aspart ordered) - Current meds Current Medication Order Review: Reviewed - Comments Comments/Follow Ups: watch BG and for culture results
[2019-08-10] MEDS: Benzonatate 100 MG CAP PO ×2 (13:38→20:21)
[2019-08-10] MEDS: Normal Saline Flush 10 ML SYR IVP ×2 (18:13→22:12)
[2019-08-10] MEDS: guaiFENesin 600 MG TABCR PO (20:21)
[2019-08-10] MEDS: Atorvastatin 20 MG TAB 40 MG PO (22:05)
[2019-08-10] MEDS: Insulin Glargine 300 UNITS/3 ML PEN 60 UNITS SC (22:06)
[2019-08-11] MEDS: methylPREDNISolone SUCC 125 MG VIAL 60 MG IVP ×2 (02:03→09:41)
[2019-08-11 03:33] VITALS: BP 167/54; PULSE 62; RESP 18; TEMP 36.7; O2SAT 96
[2019-08-11] MEDS: Levothyroxine 50 MCG TAB PO (06:17)
[2019-08-11 07:12] LABS: Abs Immature Grans 0.03 k/cumm (0.0-0.09); Absolute Eosinophil Count 0.01 k/cumm (0.0-0.7); Absolute Lymphocyte Count 0.72 k/cumm (1.2-3.4); Absolute Monocyte Count 0.21 k/cumm (0.11-0.7); Absolute Neutrophil Count 9.01 k/cumm (1.2-6.7); Eosinophils % 0.1; HCT 36.6 % (40.0-50.0); HGB 12.3 g/dL (13.5-17.5); Immature Grans % 0.3 %; Lymphocytes % 7.2; Mean Corp. HGB Concentration 33.6 g/dL (32.0-36.0); Mean Corpuscular Volume 80.4 fL (80-95); Mean Platelet Volume 10.6 fL (8.0-11.0); Monocytes % 2.1; Neutrophils % 90.3; Platelet Count 133 x1000/uL (130-400); RBC 4.55 m/cumm (4.50-6.00); RBC Distribution Width 14.8 % (11.8-14.1); White Blood Cell Count 9.98 k/cumm (4.4-10.8)
[2019-08-11 07:25] VITALS: BP 145/55; PULSE 60; RESP 15; TEMP 36.3; O2SAT 94
[2019-08-11 07:33] LABS: Anion Gap 10.6 mmol/L (3-11); BUN 27 mg/dL (7-18); C-Reactive Protein 9.28 mg/dL (0.0-0.3); CO2 23.4 mmol/L (21.0-32.0); Calcium 8.1 mg/dL (8.5-10.1); Chloride 103 mmol/L (98-107); Estimated GFR 49.41 (mL/min/1.73m2); Glucose 287 mg/dL (74-106); Potassium 4.5 mmol/L (3.5-5.1); Sodium 137 mmol/L (136-145)
[2019-08-11] MEDS: Timolol 0.5% 5 ML BTL OP (08:15)
[2019-08-11] MEDS: Refresh PLUS Eye Drops 0.4ml 1 EACH OD ×2 (08:17→13:41)
[2019-08-11] MEDS: Metoprolol 25 MG TAB PO (08:18)
[2019-08-11] MEDS: Apixaban 5 MG TAB PO (08:18)
[2019-08-11] MEDS: Lisinopril 10 MG TAB 30 MG PO (08:18)
[2019-08-11] MEDS: Aspirin E.C. 81 MG TABEC PO (08:18)
[2019-08-11] MEDS: guaiFENesin 600 MG TABCR PO (08:18)
[2019-08-11] MEDS: Furosemide 20 MG TAB PO (08:18)
[2019-08-11] MEDS: Benzonatate 100 MG CAP PO ×2 (08:18→13:41)
[2019-08-11] MEDS: Insulin Aspart 300 UNITS/3 ML PEN SC ×2 (08:18→12:06)
[2019-08-11] MEDS: MEROPENEM 1 GM in Normal Saline 100 ML IVPB (09:40)
--- NOTE | 2019-08-11 11:12 | W.PM.DS.N ---
Date of service: 08/11/19 Time of Service: 11:12 DS: Diagnosis Discharge Diagnosis (1) Sepsis syndrome: Status: Resolved (2) Nausea and vomiting: Status: Resolved (3) Atypical chest pain: Status: Resolved (4) Coronary arteriosclerosis: Status: Chronic (5) Diabetes mellitus type 2: Status: Chronic (6) Atrial fibrillation: Status: Chronic Discharge Plan Disposition Patient Disposition: HOME Condition: Stable Discharge Details Chief Complaint: SOB Clinical Impression: Shortness of breath Reason For Visit: ATYPICAL CHEST PAIN Admit Date/Time: 08/09/19 17:24 Admit Provider: Jorge Wahl Attending Provider: Jorge Wahl Primary Care Provider: William Herrera ED Provider: [facility] Hospital Course: This is 74 y.o male admitted for fever, n/v, His procalcitonin was positive. He was started on vanco and meropenem, no source identified. He received nebs and updrafts prn for cough with rendon sputum production, lungs suspected source. Sputum cx ordered and unrevealing. He as not required oxygen. Influenza A and B negative. Blood cultures negative to date. He reports feeling much better. He denies CP, SOB, N/V/D, He is eating and drinking and bowels and bladder functioning well. He has been afebrile and hemodynamically stable. Cardiac monitoring shows controlled atrial fibrillation. He completed 2 days of broad-spectrum antibiotics and will be down stepped to Cefpodoxime and doxycycline to complete 5 days. He will also finish prednisone burst. It was thought that his GI symptoms were possibly associated with rapid atrial fibrillation. There was no evidence of this on telemetry and he will be discharged to home on a ZIO patch for further monitoring and evaluation. His procalcitonin level did improve from 0.9 to 0.8 today. Also of note his CRP was elevated at 8.1 and did climb to 9.2 this is of unknown clinical significance and he should be followed up outpatient with his primary care provider closely. Home Meds and New Rx's Prescriptions: New prednisone 20 mg tablet 40 mg PO DAILY Qty: 10 RF: 0 cefpodoxime 200 mg tablet 200 mg PO BID Qty: 10 RF: 0 doxycycline hyclate 100 mg capsule 100 mg PO BID Qty: 10 RF: 0 Continued furosemide 20 mg tablet 20 mg PO DAILY RF: 0 atorvastatin [Lipitor] 20 MG tablet 40 mg PO DAILY RF: 0 levothyroxine 50 MCG tablet 50 mcg PO DAILY RF: 0 aspirin 81 MG tablet,delayed release (DR/EC) 81 mg PO DAILY RF: 0 metoprolol tartrate 25 MG tablet 25 mg PO BID Qty: 60 RF: 0 Eliquis 5 mg Tablet 5 mg PO BID RF: 0 Humalog U-100 Insulin 100 UNIT/ML cartridge 20 unit subcut BID RF: 0 Lantus Solostar U-100 Insulin 100 UNIT/1 ML insulin pen 60 units SQ HS RF: 0 lisinopril 30 mg Tablet 30 mg PO DAILY RF: 0 prednisolone acetate 1 % Drops,Suspension 1 drp OPHTHALMIC (EYE) DAILY RF: 0 brimonidine 0.2 % Drops 1 drp OPHTHALMIC (EYE) BID RF: 0 timolol maleate 0.5 % Drops, Once Daily 1 drp OPHTHALMIC (EYE) BID RF: 0 Refresh Tears 0.5 % Drops 1 drp OPHTHALMIC (EYE) TID RF: 0 Discharge Instructions Instructions: Sepsis (GEN) Additional Instructions: continue to complete your antibiotics and steroids as directed, even as you feel better. drink at least 6-8 glasses of water daily to stay well hydrated. wear ziopatch as directed. Stand Alone Forms: Nursing Discharge Form Referrals: Willaim Herrera MD [Primary Care Provider] - 08/17/19 10:45 am Activity:: Activity as Tolerated Equipment/Supplies:: No Equipment Needed Diet:: As Tolerated Discharge Orders Discharge Orders: Discharge Order (Routine); Ordered 08/11/19 Ordered By: Lilian Henning Other Ambulatory Orders: Cardiac Event Recorder (Outpt) (ONCE) Location: None Selected Ordered By: Lilian Henning DS: Summary Status at Discharge Functional status at discharge: independent ambulation Overall status at discharge: patient is progressing back to baseline Mental Status: mental status grossly normal Speech and Movement: speech and movement normal Mood: congruent mood Affect: normal affect Exam Const General: cooperative, healthy appearing, comfortable, no acute distress and well developed Nutritional Appearance: obese Orientation: alert, awake and oriented x3 HENMT Head: normal to inspection, normocephalic and atraumatic Mouth: oral mucosae normal Resp Effort & Inspection: normal respiratory effort Auscultation: clear to auscultation bilaterally Cardio Rhythm: abnormal rhythm (Controlled atrial fibrillation on the monitor) irregularly irregular GI Inspection: normal to inspection and obesity Palpation: soft Auscultation: normal bowel sounds Skin General skin exam: no rashes or lesions noted Neuro General: patient alert, patient awake and patient oriented x3 Cranial Nerves: CN's II-XI intact bilaterally Extrem General: normal to inspection and full ROM Psych Mental Status: mental status grossly normal Speech and Movement: speech and movement normal Mood: congruent mood Affect: normal affect DS: Data Vitals/I&O Vitals and I&O: Vital Signs Temperature 36.3 C L 08/11/19 07:25 Temperature Source Tympanic 08/11/19 07:25 Pulse 60 08/11/19 07:25 Pulse Rhythm Regular 08/11/19 09:58 Pulse 85 08/09/19 17:46 Respiratory Rate 15 08/11/19 07:25 Respiratory Effort Non-Labored 08/11/19 09:58 Respiratory Depth Normal 08/11/19 09:58 Respiratory Pattern Normal 08/11/19 09:58 Blood Pressure 145/55 H 08/11/19 07:25 Blood Pressure Mean 78 08/09/19 17:46 Blood Pressure Position Sitting 08/09/19 13:24 Pulse Oximetry 94 L 08/11/19 07:25 Oxygen Delivery Method Room Air 08/11/19 07:25 Oxygen Flow Rate 0 08/11/19 07:25 Pain Level 0 08/11/19 07:25 Intake & Output 08/10/19 08/10/19 08/11/19 11:59 23:59 11:59 Intake Total 2220 / 2807.5 587.5 / 2807.5 480 / 480 Output Total 900 / 1350 450 / 1350 350 / 350 Balance 1320 / 1457.5 137.5 / 1457.5 130 / 130 Weight 130.2 kg 130.4 kg Intake: IV 1500 / 1847.5 347.5 / 1847.5 Oral 720 / 960 240 / 960 480 / 480 Output: Urine 900 / 1350 450 / 1350 350 / 350 Other: Urine Color Straw Pale Yellow Yellow Urine Appearance Clear Clear Clear Urine Odor Normal Comment voided in toilet Voiding Methods Urinal Toilet Data Completed and Pending Labs on day of discharge: Labs from last 24 hours 08/11/19 08/11/19 08/11/19 06:42 06:42 06:42 WBC 9.98 RBC 4.55 Hgb 12.3 L Hct 36.6 L MCV 80.4 MCH 27.0 MCHC 33.6 RDW 14.8 H Plt Count 133 MPV 10.6 Immature Gran % 0.3 Neutrophils % 90.3 Lymphocytes % 7.2 Monocytes % 2.1 Eosinophils % 0.1 Basophils % 0.0 Absolute Neutrophils 9.01 H Absolute Lymphocytes 0.72 L Absolute Monocytes 0.21 Absolute Eosinophils 0.01 Absolute Basophils 0.00 Sodium 137 Potassium 4.5 Chloride 103 Carbon Dioxide 23.4 Anion Gap 10.6 BUN 27 H Creatinine 1.40 H Estimated GFR/1.73 m2 49.41 Glucose 287 H Calcium 8.1 L Magnesium 2.0 Total Bilirubin AST ALT Alkaline Phosphatase C-Reactive Protein 9.28 H Total Protein Albumin Lipase Procalcitonin Pending 08/10/19 06:20 WBC RBC Hgb Hct MCV MCH MCHC RDW Plt Count MPV Immature Gran % Neutrophils % Lymphocytes % Monocytes % Eosinophils % Basophils % Absolute Neutrophils Absolute Lymphocytes Absolute Monocytes Absolute Eosinophils Absolute Basophils Sodium 136 Potassium 4.4 Chloride 101 Carbon Dioxide 24.7 Anion Gap 10.3 BUN 27 H Creatinine 1.56 H Estimated GFR/1.73 m2 43.61 Glucose 244 H D Calcium 7.7 L Magnesium 1.9 Total Bilirubin 1.0 AST 17 ALT 12 L Alkaline Phosphatase 109 C-Reactive Protein 8.13 H Total Protein 6.4 Albumin 3.0 L Lipase 138 Procalcitonin 08/10/19 08:15 Urine - Voided Urine Culture - Pending Preliminary micro results at discharge 08/09/19 20:30 Blood Culture - Preliminary Blood NO GROWTH 24 HOURS 08/09/19 20:25 Blood Culture - Preliminary Blood NO GROWTH 24 HOURS 08/10/19 08:15 Urine Culture - Pending Urine - Voided [facility] Medical History Abdominal aortic aneurysm (Chronic) Atrial fibrillation (Chronic 12/28/12) New onset [id number] Atrial fibrillation (Chronic) Central retinal artery occlusion, right eye (Chronic) Chronic kidney disease stage 1 (Chronic) Acute kindye injury on top of chronic kidney disease. Baseline creatinine 1.6. 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
[2019-08-11 11:44] LABS: Procalcitonin 0.8 ng/mL
[2019-08-11 11:47] VITALS: BP 169/80; PULSE 72; RESP 15; TEMP 36.6; O2SAT 96
--- NOTE | 2019-08-11 12:40 | W.DIABETESNO ---
Date of service: 08/11/19 Time of Service: 12:42 Diabetes Note NOTE: Follow up with Mr. Romero who is hospitalzied with sepsis and reports being discharged today. Blood sugars remain elevated and he acknowledges the impact of steroids. Visited with Mr. Stapleton and his regarding his self management at home. He was noting hypoglycemic episodes at home and he decreased his basal insulin as a result. Blood sugars now fasting around 145+ at home with self managed decreased basal insulin dose. Discussed possibility of changing bedtime insulin dosing a unit or 2 at a time to fine tune with PCP support if hyperglycemia persists and he desires improved glycemic control. Discussed importance of preventing hypoglycemia and he voices understanding. He knows of our services if support is desired. Time Spent in Nutritional Counseling and Treatment: 5 minutes face to face
[2019-08-11 13:15] VITALS: O2SAT 96
--- NOTE | 2019-08-11 15:10 | PDOC.CMDIS ---
- If Service Date Differs Date of service: 08/11/19 Time of Service: 15:11 LACE Index Scoring Tool - Questions: Length of Stay (in days): 2 Acuity (Admit via E.D.?): Yes Comorbidities: Diabetes w/o Complication, Congestive Heart Failure, Mild Liver/Renal Disease E.D. Visits: 2 - Answers: Total Score: 12 Risk of Readmission: High Risk Care Management Discharge Reason for Hospitalization: Sepsis syndrome Discharge Plan: Hi will be discharged home with no new services. He will follow up with Cardiology, his PCP and discharge plan of care. Hi will transport home with his via private vehicle. Patient/Family Education Needs: Discharge plan, limitations, follow up plan and Ask Me Three.
--- NOTE | 2019-08-31 09:02 | W.ZIOMONITOR ---
Date of service: 08/31/19 Time of Service: 09:02 ZIO Patch [employer] [employer] Note: This is a 2-day ZIO patch ordered for the indication of atrial fibrillation. ?The patient was in atrial fibrillation for the entirety of the recording. Heart rates average 35-131 bpm. ?Patient had 2 pauses with the longest lasting 3.2 seconds. ?There were 0 episodes of ventricular tachycardia but frequent (9.1%) ventricular ectopic beats. ?There were no episodes of high degree heart block. ?There were no patient triggered events.
== END 2019-08-11 14:16 | disposition home or self-care (01) | DRG 872 ==
LOC: ER 17:24 → MS 18:03
PROVIDERS: Nurse Practitioner Family; Physician Assistant; Admitting Provider Family Medicine; Emergency Provider Registered Nurse Emergency; PCP Internal Medicine; Visit Provider Family Medicine
DX: A41.9 Sepsis, unspecified organism (principal); I48.20 Chronic atrial fibrillation, unspecified; R11.2 Nausea with vomiting, unspecified; I25.10 Atherosclerotic heart disease of native coronary artery without angina pectoris; L97.529 Non-pressure chronic ulcer of other part of left foot with unspecified severity; I71.4 Abdominal aortic aneurysm, without rupture; N18.1 Chronic kidney disease, stage 1; E11.22 Type 2 diabetes mellitus with diabetic chronic kidney disease; E78.5 Hyperlipidemia, unspecified; E03.9 Hypothyroidism, unspecified; I73.9 Peripheral vascular disease, unspecified; Z79.01 Long term (current) use of anticoagulants; Z87.891 Personal history of nicotine dependence; Z89.611 Acquired absence of right leg above knee; Z95.1 Presence of aortocoronary bypass graft; I50.9 Heart failure, unspecified
CPT/HCPCS: 0296T; 36410; 36415; 71250; 80048; 80053; 83690; 84145; 85027; 87040; 87449; 93005; 93306; 99223; 99233; 99239; 99285; 71046; 74176; 81003; 81015; 83605; 83735; 83880; 84443; 84484; 85025; 85610; 85730; 86140; 87086; 93010; J2930; J3370; J7620

== ENCOUNTER 2019-08-31 09:02 | Outpatient (CLI) | payer MEDICARE, OTHER, SELFPAY | END 2019-08-31 09:22 | PROVIDERS: PCP Internal Medicine; Visit Provider Internal Medicine Cardiovascular Disease | DX: I48.20 Chronic atrial fibrillation, unspecified (principal); I49.3 Ventricular premature depolarization; I25.10 Atherosclerotic heart disease of native coronary artery without angina pectoris; Z95.1 Presence of aortocoronary bypass graft | CPT/HCPCS: 0298T ==

== ENCOUNTER 2020-05-09 20:17 | Outpatient (REF) | payer MEDICARE, OTHER, SELFPAY ==
[2020-05-09 21:47] LABS: Anion Gap 9.8 mmol/L (3-11); BUN 22 mg/dL (7-18); CO2 29.2 mmol/L (21.0-32.0); CREATININE 1.55 mg/dL (0.70-1.30); Calcium 8.8 mg/dL (8.5-10.1); Calculated LDL 44 mg/dL (<100); Chloride 102 mmol/L (98-107); Cholesterol 135 mg/dL (<200); Estimated GFR 43.81 (mL/min/1.73m2); Glucose 143 mg/dL (74-106); HDL Cholesterol 28 mg/dL (40-60); Potassium 4.9 mmol/L (3.5-5.1); Sodium 141 mmol/L (136-145); Triglyceride 319 mg/dL (<150)
== END 2020-05-09 20:37 ==
LOC: NCHCN 20:17
PROVIDERS: PCP Internal Medicine; Visit Provider Internal Medicine
DX: E78.5 Hyperlipidemia, unspecified (principal)
CPT/HCPCS: 80048; 80061

== ENCOUNTER 2021-01-16 15:37 | Outpatient (REF) | payer MEDICARE, OTHER, SELFPAY ==
[2021-01-16 22:08] LABS: Anion Gap 10.2 mmol/L (3-11); BUN 23 mg/dL (7-18); CO2 26.8 mmol/L (21.0-32.0); CREATININE 1.7 mg/dL (0.70-1.30); Calcium 8.9 mg/dL (8.5-10.1); Chloride 104 mmol/L (98-107); Estimated GFR 39.38 (mL/min/1.73m2); Glucose 66 mg/dL (74-106); Potassium 4.3 mmol/L (3.5-5.1); Sodium 141 mmol/L (136-145); TSH 3.54 uIU/mL (0.36-3.74)
== END 2021-01-16 15:38 | disposition home or self-care (01) ==
LOC: NCHCN 15:37
PROVIDERS: PCP Internal Medicine; Visit Provider Internal Medicine
DX: I10 Essential (primary) hypertension (principal); E03.9 Hypothyroidism, unspecified
CPT/HCPCS: 80048; 84439; 84443

== ENCOUNTER 2021-02-17 03:45 | Outpatient (CLI) | payer MEDICARE, OTHER, SELFPAY ==
--- NOTE | 2021-02-17 | DI.US_ITS ---
Exam(s) US AAA DIAGNOSTIC EXAM: US AAA DIAGNOSTIC CLINICAL HISTORY: F/U AAA,I71.4 COMPARISON: CT CT CHEST/ABD/PEL WO from 08/10/[address] CHEST/ABD/PEL WO from 08/10/2019 FINDINGS: Abdominal Aorta: Proximal: 2.7 x 2.8 cm Mid: 2.3 x 2.5 cm Distal: 3.4 x 3.4 cm Iliac's: Right: 1.5 x 1.6 cm Left: 1.4 x 1.6 cm The doppler velocities are within normal limits. Atherosclerosis. IMPRESSION: There is a 3.4 cm distal abdominal aortic aneurysm. Grossly unchanged compared to the CT scan from . DATA REPOSITORY:
--- NOTE | 2021-02-17 | DI.US_ITS ---
Exam(s) US RENAL EXAM: US RENAL CLINICAL HISTORY: RENAL MASS,N28.89. TECHNIQUE: Carson scale, color and spectral Doppler were used. COMPARISON: No exams were available for comparison FINDINGS: Renal size in cm: Right: 10.6. Left: 10.2. Echogenicity: Normal. Hydronephrosis: No. Cyst or mass: No. Nephrolithiasis: No. Other findings: None. Bladder:Normal. Ureteral jets: Right: Not visualized on this examination. Left: Visualized and unremarkable. Prevoid vol:144 cc Postvoid vol:Very small residual postvoid volume. Renal color flow: Symmetric and within normal limits. IMPRESSION: No sonographic evidence of a renal mass. Follow-up as clinically appropriate. CT or MRI may be consid ered for further evaluation. DATA REPOSITORY:
== END 2021-02-17 04:05 ==
PROVIDERS: PCP Internal Medicine; Visit Provider Internal Medicine
DX: I71.4 Abdominal aortic aneurysm, without rupture (principal); N28.89 Other specified disorders of kidney and ureter
CPT/HCPCS: 76770; 76775

== ENCOUNTER 2021-08-28 20:30 | Outpatient (REF) | payer MEDICARE, OTHER, SELFPAY ==
[2021-08-28 16:48] LABS: Abs Immature Grans 0.06 10^3/uL (0.0-0.06); Absolute Basophil Count 0.04 10^3/uL (0.0-0.2); Absolute Lymphocyte Count 1.89 10^3/uL (1.2-3.4); Absolute Monocyte Count 1.13 10^3/uL (0.1-0.8); Basophils % 0.3; Eosinophils % 1.1; HCT 37.7 % (40.0-50.0); HGB 12.1 g/dL (13.5-17.5); Immature Grans % 0.5; Lymphocytes % 15.4; MCH 25.7 pg (27.0-33.0); MCHC 32.1 % (32.0-36.0); MPV 10.6 fL (8.0-11.0); Monocytes % 9.2; Neutrophils % 73.5; Nucleated RBC 0 %; Platelet Count 197 10^3/uL (130-400); RBC 4.71 10^6/uL (4.36-5.78); RDW 15.4 % (11.8-14.1); RDW-SD 44.8 fL; WBC 12.27 10^3/uL (4.4-10.8)
[2021-08-28 16:49] LABS: Absolute Eosinophil Count 0.13 10^3/uL (0.0-0.7); Absolute Neutrophil Count 9.02 10^3/uL (1.2-6.7)
[2021-08-28 17:03] LABS: ESR 76 mm/hr (0-20)
[2021-08-28 17:36] LABS: ALT 18 U/L (16-63); AST 12 U/L (15-37); Albumin 3.5 g/dL (3.4-5.0); Alkaline Phosphatase 126 U/L (46-116); Anion Gap 13.2 mmol/L (3-11); BUN 23 mg/dL (7-18); CO2 23.8 mmol/L (21.0-32.0); CREATININE 1.6 mg/dL (0.70-1.30); Calcium 8.5 mg/dL (8.5-10.1); Chloride 99 mmol/L (98-107); Estimated GFR 42.12 (mL/min/1.73m2); Glucose 119 mg/dL (74-106); Potassium 4.7 mmol/L (3.5-5.1); Sodium 136 mmol/L (136-145); Total Protein 6.9 g/dL (6.4-8.2)
== END 2021-08-28 20:31 | disposition home or self-care (01) ==
LOC: NCHCN 20:30
PROVIDERS: PCP Internal Medicine; Visit Provider Family Medicine
DX: E11.621 Type 2 diabetes mellitus with foot ulcer (principal); L97.519 Non-pressure chronic ulcer of other part of right foot with unspecified severity
CPT/HCPCS: 80053; 85652; 87077; 85025; 87070; 87186; 87205

== ENCOUNTER 2021-11-01 08:58 | Outpatient (REF) | payer MEDICARE, OTHER, SELFPAY ==
[2021-11-01 14:35] LABS: Abs Immature Grans 0.03 10^3/uL (0.0-0.06); Absolute Basophil Count 0.03 10^3/uL (0.0-0.2); Absolute Eosinophil Count 0.17 10^3/uL (0.0-0.7); Absolute Lymphocyte Count 1.73 10^3/uL (1.2-3.4); Absolute Monocyte Count 0.88 10^3/uL (0.1-0.8); Absolute Neutrophil Count 5.55 10^3/uL (1.2-6.7); Basophils % 0.4; HCT 31.6 % (40.0-50.0); HGB 10.1 g/dL (13.5-17.5); Immature Grans % 0.4; Lymphocytes % 20.6; MCH 26.5 pg (27.0-33.0); MCV 83 fL (80-95); MPV 10.6 fL (8.0-11.0); Monocytes % 10.5; Neutrophils % 66.1; Platelet Count 218 10^3/uL (130-400); RBC 3.81 10^6/uL (4.36-5.78); RDW 16.2 % (11.8-14.1); RDW-SD 49.3 fL; WBC 8.39 10^3/uL (4.4-10.8)
[2021-11-01 14:49] LABS: ALT 17 U/L (16-63); AST 15 U/L (15-37); Alkaline Phosphatase 115 U/L (46-116); Anion Gap 9.9 mmol/L (3-11); BUN 23 mg/dL (7-18); Bilirubin, Total 0.4 mg/dL (0.2-1.0); CO2 25.1 mmol/L (21.0-32.0); CREATININE 1.3 mg/dL (0.70-1.30); Calcium 8.4 mg/dL (8.5-10.1); Chloride 104 mmol/L (98-107); Estimated GFR 53.53 (mL/min/1.73m2); Glucose 122 mg/dL (74-106); Potassium 4.2 mmol/L (3.5-5.1); Sodium 139 mmol/L (136-145); Total Protein 6.9 g/dL (6.4-8.2)
== END 2021-11-01 08:59 | disposition home or self-care (01) ==
LOC: NCHCN 08:58
PROVIDERS: PCP Internal Medicine; Visit Provider Family Medicine
DX: R19.7 Diarrhea, unspecified (principal); E11.65 Type 2 diabetes mellitus with hyperglycemia
CPT/HCPCS: 80053; 85025

== ENCOUNTER 2021-11-03 16:04 | Outpatient (REF) | payer MEDICARE, OTHER, SELFPAY | END 2021-11-03 16:05 | disposition home or self-care (01) | LOC: NCHCN 16:04 | PROVIDERS: Family Medicine; PCP Internal Medicine; Visit Provider Registered Nurse | DX: R19.7 Diarrhea, unspecified (principal); E11.65 Type 2 diabetes mellitus with hyperglycemia | CPT/HCPCS: 87329; 87493; 83630; 87177 ==

== ENCOUNTER 2021-12-05 18:49 | Emergency (ER) | payer MEDICARE, OTHER, SELFPAY ==
--- NOTE | 2021-12-05 18:45 | RT.EKG_ITS ---
APPROVED REPORT Exam: Resting ECG Reason for Exam: chest pain Patient Location: E HR:89 bpm ECG Measurements Heart Rate 89 AXIS CO [id number] P [id number] QRSd 99 QRS 16 QT 399 T 74 QTc 486 Conclusion Atrial fibrillation...V-rate 77-116, irreg A-activity Low voltage, extremity and precordial leads...extremity<0.5mV, precordial<1.0mV. Afib. No STEMI. I have reviewed and interpreted ECG and agree with software generated interpretation.
[2021-12-05 19:03] VITALS: BP 110/57; PULSE 82; RESP 19; TEMP 36.6
[2021-12-05 19:55] LABS: Abs Immature Grans 0.05 10^3/uL (0.0-0.06); Absolute Basophil Count 0.04 10^3/uL (0.0-0.2); Absolute Lymphocyte Count 2.59 10^3/uL (1.2-3.4); Absolute Monocyte Count 1.03 10^3/uL (0.1-0.8); Basophils % 0.4; Eosinophils % 2.1; HCT 30.5 % (40.0-50.0); HGB 9.7 g/dL (13.5-17.5); Immature Grans % 0.5; Lymphocytes % 27.8; MCH 25.3 pg (27.0-33.0); MCHC 31.8 % (32.0-36.0); MCV 80 fL (80-95); MPV 10.4 fL (8.0-11.0); Monocytes % 11.1; Neutrophils % 58.1; Platelet Count 239 10^3/uL (130-400); RBC 3.83 10^6/uL (4.36-5.78); RDW 18.3 % (11.8-14.1); RDW-SD 51.6 fL; WBC 9.31 10^3/uL (4.4-10.8)
--- NOTE | 2021-12-05 19:56 | W.ED.GENAD ---
Discharge Plan Disposition Patient Disposition: HOME Condition: Improving Discharge Details Clinical Impression: Ulcer of right heel, Hypomagnesemia, Right renal mass Primary Care Provider: William Herrera ED Provider: Raghav Licea Home Meds and New Rx's Prescriptions: Continued furosemide 20 mg tablet 20 mg PO DAILY atorvastatin [Lipitor] 20 MG tablet 40 mg PO DAILY levothyroxine 50 MCG tablet 50 mcg PO DAILY aspirin 81 MG tablet,delayed release (DR/EC) 81 mg PO DAILY metoprolol tartrate 25 MG tablet 25 mg PO BID Qty: 60 0RF Eliquis 5 mg Tablet 5 mg PO BID Humalog U-100 Insulin 100 UNIT/ML cartridge 20 unit subcut BID Rx Instructions: BID - PRIOR BREAKFAST AND PRIOR TO LUNCH. Lantus Solostar U-100 Insulin 100 UNIT/1 ML insulin pen 60 units SQ HS prednisone 20 mg tablet 40 mg PO DAILY Qty: 10 0RF cefpodoxime 200 mg tablet 200 mg PO BID Qty: 10 0RF Rx Instructions: must administer with a meal/food doxycycline hyclate 100 mg capsule 100 mg PO BID Qty: 10 0RF lisinopril 30 mg Tablet 30 mg PO DAILY prednisolone acetate 1 % Drops,Suspension 1 drp OPHTHALMIC (EYE) DAILY Rx Instructions: 1 drop in pt.'s right eye. brimonidine 0.2 % Drops 1 drp OPHTHALMIC (EYE) BID Rx Instructions: One drop in pt.'s right eye. timolol maleate 0.5 % Drops, Once Daily 1 drp OPHTHALMIC (EYE) BID Rx Instructions: 1 drop in pt.'s right eye. Refresh Tears 0.5 % Drops 1 drp OPHTHALMIC (EYE) TID Rx Instructions: left eye Discharge Instructions Instructions: Hypomagnesemia (ED) Additional Instructions: You received magnesium supplementation in the ER. Leave current healed wound dressing in place until you are seen by home health for wound check. Follow-up with Dr. Herrera. We will ask our care management team to arrange a follow-up for you. As we discussed your CAT scan showed evidence of a right renal lesion, which you have previously had evaluated. Return to the ER for any acute concern. Medical Decision Making <Prisclia Marsh DO - Last Filed: 12/05/21 20:25> 76-year-old male with a history of morbid obesity, hypertension, hyperlipidemia, peripheral vascular disease, coronary artery disease, diabetes, CABG presents with a complaint of diarrhea for the past month, an episode of dizziness this afternoon and shortness of breath on exertion prior to coming into the emergency department today. He denies any chest pain at any time. EKG on arrival notes a rate of 89, atrial fibrillation and no STEMI. His vitals are within normal limits. He currently has no acute complaints. Differential diagnosis includes dehydration, UTI, electrolyte abnormality, pneumonia, PE. History and presentation does not appear consistent with ACS, dissection, CVA. We will place an IV, bolus IV fluids, screening labs, urinalysis, chest x-ray, fluvid. Case endorsed to Dr. Licea to follow-up on labs and imaging and final disposition. Consider repeat troponin due to complaint of dyspnea on exertion prior to arrival. Medical Records Medical records reviewed: Yes I reviewed the patient's medical records. ECG Data Attestation: I personally reviewed and interpreted this ECG (s) as follows: Interpretation: Rate of 89, atrial fibrillation, no STEMI. <Raghav Licea MD - Last Filed: 12/06/21 00:02> Lab Data Lab results reviewed: Yes I reviewed the patient's lab results. Lab results narrative: Received signout from Dr. Marsh. Please see her note regarding details of the initial presentation, exam and plan of care. Patient improved following supplementation of magnesium. His D-dimer was elevated and he was referred for CT images. This did not show any significant or acute lung findings but did note to centimeter right renal lesion, which patient states he believes she has had before. We will obtain follow-up with Dr. Herrera/[facility] for this. Troponin negative. While in the ER, the patient required dressing change to his right heel wound. He is stable and improved, appropriate for discharge to home. Labs: Laboratory Results - last 24 hr 12/05/21 12/05/21 12/05/21 19:45 19:45 19:45 WBC 9.31 RBC 3.83 L Hgb 9.7 L Hct 30.5 L MCV 80 MCH 25.3 L MCHC 31.8 L RDW 18.3 H Plt Count 239 MPV 10.4 Immature Gran % 0.5 Neutrophils % 58.1 Lymphocytes % 27.8 Monocytes % 11.1 Eosinophils % 2.1 Basophils % 0.4 Nucleated RBC % 0.0 Absolute Neutrophils 5.40 Absolute Lymphocytes 2.59 Absolute Monocytes 1.03 H Absolute Eosinophils 0.20 Absolute Basophils 0.04 D-Dimer 1674 H Sodium 138 Potassium 4.3 Chloride 103 Carbon Dioxide 23.9 Anion Gap 11.1 H BUN 25 H Creatinine 1.8 H Estimated GFR/1.73 m2 36.77 Glucose 157 H Calcium 8.8 Magnesium 1.6 L Total Bilirubin 0.4 AST 17 ALT 16 Alkaline Phosphatase 86 Troponin I < 50 Total Protein 7.0 Albumin 2.9 L HPI <Priscila Marsh DO - Last Filed: 12/05/21 20:25> General Mode of arrival: ambulatory. Date/Time Provider Initiated Documentation: 12/05/21 18:56. Limitations to Documentation: no limitations. Information obtained by: patient. HPI Narrative: Patient is a 76-year-old male with a history of morbid obesity, coronary artery disease, hypertension, hyperlipidemia, diabetes, peripheral vascular disease, CABG who presents with complaint of I think I am having a heart attack . Upon further assessment, patient denies any chest pain but states he was sitting at home this evening when he developed lightheadedness while sitting in his chair and felt like his hands were shaking. He states the dizziness lasted approximately 45 minutes and then resolved. Patient states he was at [facility] all day today to see cytogenetic technician Dr. Roblero status post surgery to his right heel on 11/27. He states he was told his right heel is healing well without signs of infection and the wound was redressed today and he states he does not want the bandage removed at this time. Patient denies any chest pain at any time today. He states he has been very busy outside of the house today and did not eat or drink much. He also admits to 4 episodes of diarrhea occurring daily for the past month. He states he has been on metronidazole and Levaquin for the past 2 weeks for his right heel wound. He denies any fever, new cough, vomiting, or known exposure to coronavirus. Related Data Home Medications Medication Instructions Recorded Confirmed aspirin 81 mg tablet,delayed 81 mg PO DAILY 11/08/12 08/09/19 release atorvastatin 20 mg tablet (Lipitor) 40 mg PO DAILY 11/08/12 08/09/19 levothyroxine 50 mcg tablet 50 mcg PO DAILY 06/15/13 03/15/20 metoprolol tartrate 25 mg tablet 25 mg PO BID ##60 01/02/13 08/09/19 apixaban 5 mg tablet (Eliquis) 5 mg PO BID 07/29/18 08/09/19 insulin glargine 100 unit/mL (3 60 units SQ HS diabetes 07/29/18 08/09/19 mL) subcutaneous pen (Lantus Solostar U-100 Insulin) insulin lispro 100 unit/mL 20 unit subcut BID 07/29/18 08/09/19 subcutaneous cartridge (Humalog U-100 Insulin) brimonidine 0.2 % eye drops 1 drp ophthalmic (eye) BID 08/04/18 08/09/19 carboxymethylcellulose sodium 0.5 1 drp ophthalmic (eye) TID 08/04/18 08/09/19 % eye drops (Refresh Tears) lisinopril 30 mg tablet 30 mg PO DAILY 08/04/18 08/09/19 prednisolone acetate 1 % eye 1 drp ophthalmic (eye) DAILY 08/04/18 08/09/19 drops,suspension timolol maleate 0.5 % once daily 1 drp ophthalmic (eye) BID 08/04/18 08/09/19 eye drops furosemide 20 mg tablet 20 mg PO DAILY 08/03/19 08/09/19 cefpodoxime 200 mg tablet 200 mg PO BID #10 tabs 08/11/19 doxycycline hyclate 100 mg capsule 100 mg PO BID #10 caps 08/11/19 prednisone 20 mg tablet 40 mg PO DAILY #10 tabs 08/11/19 Previous Rx's Medication Instructions Recorded metoprolol tartrate 25 mg tablet 25 mg PO BID ##60 01/02/13 cefpodoxime 200 mg tablet 200 mg PO BID #10 tabs 08/11/19 doxycycline hyclate 100 mg capsule 100 mg PO BID #10 caps 08/11/19 prednisone 20 mg tablet 40 mg PO DAILY #10 tabs 08/11/19 Allergies Allergy/AdvReac Type Severity Reaction Status Date / Time amoxicillin trihydrate Allergy Intermediate Hives Unverified 08/09/19 13:30 [From Augmentin] simvastatin Allergy Unknown Unverified 08/09/19 13:30 [From Vytorin 10-10] General Stated Complaint: Dizzy/Sync MELISSA: 2 Review of Systems <Priscila Marsh DO - Last Filed: 12/05/21 20:25> All systems reviewed & are unremarkable except as noted in HPI and below Constitutional Constitutional: Denies chills, Denies excessive sweating, Denies fatigue, Denies fever(s), Denies weakness and Denies weight loss Eyes Eyes: Reports system reviewed and no additional complaints, except as documented and Denies blurry vision ENT Ears, Nose, Mouth, and Throat: Denies vertigo, Reports dizziness, Denies otalgia, Denies nasal congestion, Denies sore throat and Denies throat swelling Cardiovascular Cardiovascular: Denies chest pain, Denies syncope, Denies rapid heart rate and Denies dyspnea Respiratory Respiratory: Denies chest congestion, Denies cough, Denies pain on inspiration and Denies dyspnea Gastrointestinal Gastrointestinal: Denies abdominal pain, Reports diarrhea and Denies vomiting Genitourinary Genitourinary: Denies hematuria, Denies dysuria and Denies flank pain Musculoskeletal Musculoskeletal: Denies back pain and Denies joint swelling Integumentary/Breasts Skin/Breast: Denies lesions and Denies rash Neurologic Neurologic: Denies behavioral changes, Denies confusion, Denies vertigo, Reports dizziness, Denies syncope, Denies localized weakness and Denies weakness Psychiatric Psychiatric: Denies behavioral changes, Denies confusion and Denies depression Endocrine Endocrine: Denies excessive sweating and Denies fatigue Hematologic/Lymphatic Hematologic/Lymphatic: Denies easy bruising and Denies lymphadenopathy Allergic/Immunologic Allergic/Immunologic: Denies throat swelling PFSH <Priscila Marsh DO - Last Filed: 12/05/21 20:25> All Active Problems (Updated 12/05/21 @ 21:57 by Raghav Licea MD) Ulcer of right heel (Acute) Hypomagnesemia (Acute) Right renal mass (Acute) Abnormal auditory perception (Acute) Other infective otitis externa, bilateral (Acute) Atrial fibrillation (Chronic) Leukocytosis (leucocytosis) (Acute) Shortness of breath (Acute) Osteomyelitis of ankle or foot, right, acute (Acute) Advance directive on file (Acute) DVT prophylaxis (Acute) Discharge planning issues (Acute) Sepsis (Acute) Abdominal aortic aneurysm (Chronic) Peripheral arterial disease (Chronic) Central retinal artery occlusion, right eye (Chronic) Left heart failure with preserved LV function (Chronic) Cellulitis of right foot (Acute) Hammertoe of right foot (Acute) Cellulitis and abscess of leg (Active 12/28/12) Cellulitis of the left lower extremity with sepsis syndrome. Hx os cellulitis of the right fourth toe October. Hx of left lower leg cellulitis 01/14/12. Septicemia (Active 12/28/12) Hyponatremia (Active 12/28/12) Chronic kidney disease stage 1 (Chronic) Acute kindye injury on top of chronic kidney disease. Baseline creatinine 1.6. Atrial fibrillation (Chronic 12/28/12) New onset [id number] Benign hypertension (Active) Hypothyroidism (Chronic) Diabetes mellitus type 2 (Chronic) Hemoglobin a1c on 12/25/2012 was 8.8 Peripheral neuropathy. Coronary arteriosclerosis (Chronic) NSTEMI, 06/15/2007 CABG to LAD, OM-1, RCA, 07/16/2007 Echocardiogram 07/16/2007 with EF 70%. 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 Obesity (Active) Cellulitis of left lower leg (Acute) Skin ulcer of left great toe (Acute) Bronchospasm, acute (Acute) Family history of cancer of GI tract (Acute) Medical History (Updated 12/05/21 @ 21:57 by Raghav Licea MD) Coronary artery disease Diabetes Hyperlipemia Hypothyroidism Peripheral vascular disease Surgical History Appendectomy Colonoscopy - MAC (05/25/16) Coronary Artery Bypass Gaft (CABG) Social History Smoking/Tobacco Use Status: Former Tobacco Use Smoking risk assessment performed?: Yes Alcohol Intake: current Alcohol Intake frequency: 0-2 drinks per day Alcohol type: beer Drug use: Never Substance use type: does not use Do you feel safe at home: Yes Do you feel safe in your relationship?: Yes Exam <Priscila Marsh DO - Last Filed: 12/05/21 20:25> Const General: cooperative Orientation: alert, awake and oriented x3 HENMT Head: normal to inspection Ears: hearing grossly normal bilaterally, external ears normal and TM's normal bilaterally General nose exam: external nose normal Face and sinus: normal facial exam Mouth: oral mucosae normal Teeth and gingiva: dentition normal Throat: posterior oropharynx normal Eyes General: appearance normal, both eyes and all related structures Eyelids: eyelids normal Pupils: PERRL EOM: EOM intact bilaterally Neck Neck: normal visual inspection Lymphatic: no lymphadenopathy noted Chest Chest: normal inspection of the chest Resp Effort & Inspection: normal respiratory effort and able to speak in complete sentences Auscultation: clear to auscultation bilaterally Cardio Rate: regular rate Rhythm: regular rhythm GI Inspection: normal to inspection Palpation: soft, not firm, no guarding, no hepatosplenomegaly, no masses and nontender Auscultation: normal bowel sounds Back/Spine/Pelvis Back: no CVA tenderness Skin General skin exam: no rashes or lesions noted Neuro General: patient alert and patient awake Cognition: normal cognition Speech: speech normal Gait: normal gait Motor: muscle tone normal throughout Sensory Exam: no sensory deficits noted Extrem General: full ROM Other: Bandage noted to Right heel. 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 No acute cellulits to Right remaining toes. Psych Appearance: grossly normal Mental Status: mental status grossly normal Speech and Movement: speech and movement normal Affect: normal affect Thought Process: normal Course <Priscila Marsh DO - Last Filed: 12/05/21 20:25> Vital Signs Vital signs: Vital Signs Temperature 98 F 12/05/21 19:03 Pulse 82 12/05/21 19:03 Respiratory Rate 19 12/05/21 19:03 Blood Pressure 110/57 L 12/05/21 19:03 Temperature 98 F 12/05/21 19:03 Temperature Source Skin 12/05/21 19:03 Pulse 82 12/05/21 19:03 Respiratory Rate 19 12/05/21 19:03 Respiratory Effort Non-Labored 12/05/21 19:32 Blood Pressure 110/57 L 12/05/21 19:03 Blood Pressure Position Supine 12/05/21 19:03 Oxygen Delivery Method Room Air 12/05/21 19:03 Oxygen Flow Rate 0 12/05/21 19:03 Pain Level 0 12/05/21 19:03 Sign Out <Priscila Marsh DO - Last Filed: 12/05/21 20:25> Sign Out Data: Sign Out Comment: Follow-up on labs and imaging and final disposition. Consider repeat troponin and EKG due to sob on exertion prior to arrival. Last updated by Priscila Marsh DO at 12/05/21 20:06
--- NOTE | 2021-12-05 20:15 | DI.CT_ITS ---
Exam(s) CT CHEST PE CTA EXAM: CT CHEST PE CTA CLINICAL HISTORY: Dizzy, SOB, elevated DDimer. TECHNIQUE: Imaging Protocol: CT angiography of the chest was performed using pulmonary embolus dalia col. Multi planar reconstructions were performed. CONTRAST MATERIAL: Intravenous: Omnipaque 350 Contrast volume: 100 cc COMPARISON: CT CT CHEST/ABD/PEL WO from 08/10/2019 FINDINGS: CHEST: PULMONARY ARTERIES: There are no intraluminal filling defects to suggest acute pulmonary emboli. LUNGS: There are no infiltrates nor evidence of pulmonary infarction.. There are no pleural effusions . No ominous pulmonary nodules. MEDIASTINUM: There is no hilar nor mediastinal adenopathy. Visualized thyroid unremarkable. CARDIAC: There are sternotomy wires. Heart size slightly prominent. Coronary artery calcification.T horacic aorta is atherosclerotic. However not significantly dilated there is no evidence of dissecti on. Ventricular ratio 1:1 PARTIALLY VISUALIZED UPPERMOST ABDOMEN: No adrenal masses. No splenomegaly. Abnormal finding in the mid-lower aspect of the right kidney which does not have the appearance of a benign cyst and require s further investigation this measures approximately 2 cm. Possible neoplasm. OSSEOUS: No significant osseous lesions.Thoracic spine DISH evident.. IMPRESSION: 1. No evidence of acute pulmonary emboli. No evidence of pulmonary infarction.No pleural effusions. 2. Sternotomy wires. Mild cardiomegaly. Coronary artery calcification. Atherosclerotic thoracic ao rta but without significant dilatation nor evidence of dissection. 3. Incidentally noted in the right kidney is a 2 cm mass which is partially included in the field of view here but is suspicious for neoplasm. Further dedicated imaging of this abnormal incidental find ings recommended. Study 1st read by [facility]. RADIATION DOSE DELIVERED: 650.22mGy.cm Total DLP DATA REPOSITORY: All CT scans at this facility are submitted to the National Radiology Data Registry (NRDR) Dose Index Registry (DIR) with the [employer] (A[employer]). RADIATION OPTIMIZATION: All CT scans at this facility use at least one of these dose optimization te chniques: automated exposure control; mA and/or kV adjustment per patient size (includes targeted exa ms where dose is matched to clinical indication); or iterative reconstruction.
[2021-12-05 20:20] LABS: ALT 16 U/L (16-63); AST 17 U/L (15-37); Albumin 2.9 g/dL (3.4-5.0); Alkaline Phosphatase 86 U/L (46-116); Anion Gap 11.1 mmol/L (3-11); BUN 25 mg/dL (7-18); Bilirubin, Total 0.4 mg/dL (0.2-1.0); CO2 23.9 mmol/L (21.0-32.0); CREATININE 1.8 mg/dL (0.70-1.30); Calcium 8.8 mg/dL (8.5-10.1); Chloride 103 mmol/L (98-107); Estimated GFR 36.77 (mL/min/1.73m2); Glucose 157 mg/dL (74-106); Magnesium 1.6 mg/dL (1.8-2.4); Potassium 4.3 mmol/L (3.5-5.1); Sodium 138 mmol/L (136-145); Troponin I < 50 ng/L (<or=60)
[2021-12-05 20:26] LABS: D-Dimer 1674 ng/mlFEU (<500)
[2021-12-05] MEDS: Omnipaque 350 MG/ML 100 ML BTL IV (21:03)
[2021-12-05] MEDS: Normal Saline Flush 10 ML SYR IVP (21:05)
[2021-12-05] MEDS: MAGNESIUM SULFATE 1 GM/100 ML BAG IVPB (21:10)
--- NOTE | 2021-12-05 21:34 | DI.VRAD_ITS ---
Addendum created by Bruno Whitley MD on 12/05/2021 9:41:38 PM EDT: This case was discussed personally with BERE NICOLE at 9:41 PM EDT on 12/05/2021. Initial report created on 12/05/2021 9:33:49 PM EDT: PROCEDURE INFORMATION: Exam: CTA Chest With Contrast Exam date and time: 12/05/2021 8:51 PM Age: 76 years old Clinical indication: Other: Dizzy, SOB, elevated ddimer; Prior surgery; Surgery date: 6+ months; Surgery type: Open heart S/P TECHNIQUE: Imaging protocol: Computed tomographic angiography of the chest with contrast. 3D rendering (Not supervised by radiologist): MIP and/or 3D reconstructed images were created by the technologist. Radiation optimization: All CT scans at this facility use at least one of these dose optimization techniques: automated exposure control; mA and/or kV adjustment per patient size (includes targeted exams where dose is matched to clinical indication); or iterative reconstruction. Contrast material: OMNIPAQUE 350; Contrast volume: 84 ml; Contrast route: INTRAVENOUS (IV); COMPARISON: CT CHEST/ABD/PEL WO 08/10/2019 12:16 PM FINDINGS: Tubes, catheters and devices: Right-sided PICC in situ extending into the superior vena cava. Pulmonary arteries: No pulmonary embolism identified. Small and distal pulmonary arteries almost completely obscured by artifact from breathing motion through the mid-lower lung zones and poorly evaluated for diagnosis or exclusion of small or distal pulmonary emboli. Aorta: No thoracic aortic aneurysm or dissection. Thyroid: Normal sized thyroid gland. Lungs: No pulmonary consolidation. Mild emphysematous changes in the upper lung zones. Pleural spaces: No pleural effusion or pneumothorax. Heart: Overall normal sized heart. Relative dilatation of the right atrium. Coronary artery calcification. Prior median sternotomy. Lymph nodes: Scattered small mediastinal lymph nodes. Mildly enlarged right hilar node measuring 1.9 cm x 2.1 cm on image 31 of series 4. Diaphragm: Small hiatal hernia. Kidneys and ureters: Partial visualization of a heterogeneous round 2 cm right renal lesion, only partially visualized but with an appearance suspicious for an enhancing renal neoplasm such as a renal cell carcinoma, image 83 of series 4. Bones/joints: No acute fracture seen among the bones of the chest. Spinal degenerative change with endplate irregularities and large anterior osteophytes flowing along the anterior thoracic margin. Soft tissues: No gross soft tissue mass or fluid collection seen in the chest wall. IMPRESSION: 1. Partial visualization of a heterogeneous round 2 cm right renal lesion, only partially visualized but with an appearance suspicious for an enhancing renal neoplasm such as a renal cell carcinoma. Further evaluation by dedicated multiphasic contrast enhanced CT or MR imaging is recommended. 2. No pulmonary embolism identified. Small and distal pulmonary arteries almost completely obscured by motion artifact through the mid-lower lung zones and poorly evaluated for diagnosis or exclusion of small or distal pulmonary emboli. Dictated and Authenticated by: Bruno Whitley MD. Ordering:ERIC Avilez MD
--- NOTE | 2021-12-05 22:01 | NUR.NOTE ---
Referral faxed to [facility], Dr Herrera to f/u in about a week for Hypomagnesemia.Nursing Note:
[2021-12-05 22:39] LABS: COVID-19 PCR Negative (Negative); Influenza A PCR Negative (Negative); Influenza B PCR Negative (Negative); RSV PCR Negative (Negative)
[2021-12-05 22:50] LABS: Source Nasopharynx
== END 2021-12-05 22:17 | disposition home or self-care (01) ==
PROVIDERS: Physician Assistant; Emergency Provider Emergency Medicine; PCP Internal Medicine
DX: E83.42 Hypomagnesemia (principal); N28.89 Other specified disorders of kidney and ureter; E11.621 Type 2 diabetes mellitus with foot ulcer; L97.419 Non-pressure chronic ulcer of right heel and midfoot with unspecified severity; E11.51 Type 2 diabetes mellitus with diabetic peripheral angiopathy without gangrene; I10 Essential (primary) hypertension; I48.91 Unspecified atrial fibrillation; I25.10 Atherosclerotic heart disease of native coronary artery without angina pectoris; Z95.1 Presence of aortocoronary bypass graft; Z20.822 Contact with and (suspected) exposure to COVID-19; Z79.82 Long term (current) use of aspirin; Z87.891 Personal history of nicotine dependence
CPT/HCPCS: 71275; 80053; 87637; 93005; 96361; 96365; 99285; 83735; 84484; 85025; 85379; 93010; J3475; J3490

== ENCOUNTER 2021-12-11 12:52 | Outpatient (REF) | payer MEDICARE, OTHER, SELFPAY ==
[2021-12-11 13:26] LABS: Abs Immature Grans 0.02 10^3/uL (0.0-0.06); Absolute Basophil Count 0.03 10^3/uL (0.0-0.2); Absolute Lymphocyte Count 1.36 10^3/uL (1.2-3.4); Absolute Monocyte Count 0.59 10^3/uL (0.1-0.8); Absolute Neutrophil Count 3.41 10^3/uL (1.2-6.7); Basophils % 0.5; Eosinophils % 5.3; HCT 28.7 % (40.0-50.0); HGB 8.9 g/dL (13.5-17.5); Immature Grans % 0.4; Lymphocytes % 23.8; MCH 26.1 pg (27.0-33.0); MCV 84 fL (80-95); MPV 10.2 fL (8.0-11.0); Monocytes % 10.3; Neutrophils % 59.7; Platelet Count 153 10^3/uL (130-400); RBC 3.41 10^6/uL (4.36-5.78); RDW-SD 58.1 fL; WBC 5.71 10^3/uL (4.4-10.8)
[2021-12-11 13:35] LABS: ESR 44 mm/hr (0-20)
[2021-12-11 13:57] LABS: ALT 19 U/L (16-63); AST 24 U/L (15-37); Albumin 2.6 g/dL (3.4-5.0); Alkaline Phosphatase 78 U/L (46-116); Anion Gap 7.8 mmol/L (3-11); BUN 14 mg/dL (7-18); Bilirubin, Total 0.2 mg/dL (0.2-1.0); C-Reactive Protein 1.12 mg/dL (0.0-0.3); CO2 25.2 mmol/L (21.0-32.0); CREATININE 1.3 mg/dL (0.70-1.30); Calcium 7.9 mg/dL (8.5-10.1); Chloride 105 mmol/L (98-107); Estimated GFR 53.53 (mL/min/1.73m2); Glucose 217 mg/dL (74-106); Potassium 4.1 mmol/L (3.5-5.1); Sodium 138 mmol/L (136-145); Total Protein 5.5 g/dL (6.4-8.2)
== END 2021-12-11 12:53 | disposition home or self-care (01) ==
LOC: LBN 12:52
PROVIDERS: PCP Internal Medicine; Visit Provider Podiatrist Foot & Ankle Surgery
DX: E11.621 Type 2 diabetes mellitus with foot ulcer (principal); L89.613 Pressure ulcer of right heel, stage 3; Z79.4 Long term (current) use of insulin
CPT/HCPCS: 80053; 85652; 85025; 86140

== ENCOUNTER 2021-12-18 16:03 | Outpatient (REF) | payer MEDICARE, OTHER, SELFPAY ==
[2021-12-18 15:15] LABS: Abs Immature Grans 0.02 10^3/uL (0.0-0.06); Absolute Basophil Count 0.03 10^3/uL (0.0-0.2); Absolute Eosinophil Count 0.28 10^3/uL (0.0-0.7); Absolute Lymphocyte Count 1.68 10^3/uL (1.2-3.4); Absolute Monocyte Count 0.74 10^3/uL (0.1-0.8); Absolute Neutrophil Count 4.01 10^3/uL (1.2-6.7); Basophils % 0.4; Eosinophils % 4.1; HCT 30.7 % (40.0-50.0); HGB 9.3 g/dL (13.5-17.5); Immature Grans % 0.3; Lymphocytes % 24.9; MCH 25.8 pg (27.0-33.0); MCHC 30.3 % (32.0-36.0); MCV 85 fL (80-95); MPV 10.3 fL (8.0-11.0); Monocytes % 10.9; Neutrophils % 59.4; Platelet Count 179 10^3/uL (130-400); RBC 3.61 10^6/uL (4.36-5.78); RDW 18.2 % (11.8-14.1); RDW-SD 56.6 fL; WBC 6.76 10^3/uL (4.4-10.8)
[2021-12-18 15:17] LABS: ESR 37 mm/hr (0-20)
[2021-12-18 15:24] LABS: ALT 25 U/L (16-63); AST 25 U/L (15-37); Albumin 2.9 g/dL (3.4-5.0); Alkaline Phosphatase 91 U/L (46-116); Anion Gap 5.6 mmol/L (3-11); BUN 17 mg/dL (7-18); Bilirubin, Total 0.3 mg/dL (0.2-1.0); C-Reactive Protein 1.28 mg/dL (0.0-0.3); CO2 29.4 mmol/L (21.0-32.0); CREATININE 1.1 mg/dL (0.70-1.30); Calcium 8.5 mg/dL (8.5-10.1); Chloride 104 mmol/L (98-107); Glucose 114 mg/dL (74-106); Potassium 4.2 mmol/L (3.5-5.1); Sodium 139 mmol/L (136-145); Total Protein 6.1 g/dL (6.4-8.2)
== END 2021-12-18 16:04 | disposition home or self-care (01) ==
LOC: LBN 16:03
PROVIDERS: PCP Internal Medicine; Visit Provider Nurse Practitioner
DX: E11.621 Type 2 diabetes mellitus with foot ulcer (principal); L97.514 Non-pressure chronic ulcer of other part of right foot with necrosis of bone; L89.613 Pressure ulcer of right heel, stage 3; Z79.4 Long term (current) use of insulin; Z45.2 Encounter for adjustment and management of vascular access device
CPT/HCPCS: 80053; 85652; 85025; 86140

== ENCOUNTER 2021-12-24 00:03 | Outpatient (RCR) | payer MEDICARE, OTHER, SELFPAY ==
[2021-12-08] MEDS: Normal Saline Flush 10 ML SYR IVP (10:23)
[2021-12-08] MEDS: cefTRIAXone 1 GM/50 ML BAG IVPB (10:23)
[2021-12-22] MEDS: Normal Saline Flush 10 ML SYR IVP (12:55)
[2021-12-22] MEDS: cefTRIAXone 1 GM/50 ML BAG IVPB (12:55)
[2021-12-23] MEDS: cefTRIAXone 1 GM/50 ML BAG IVPB (13:06)
[2021-12-23] MEDS: Normal Saline Flush 10 ML SYR IVP (13:36)
[2021-12-24] MEDS: cefTRIAXone 1 GM/50 ML BAG IVPB (12:53)
[2021-12-24] MEDS: Normal Saline Flush 10 ML SYR IVP (12:53)
== END 2021-12-24 23:59 | disposition home or self-care (01) ==
LOC: INF 00:03
PROVIDERS: PCP Internal Medicine; Visit Provider Family Medicine
DX: E11.621 Type 2 diabetes mellitus with foot ulcer (principal); E11.42 Type 2 diabetes mellitus with diabetic polyneuropathy; E11.52 Type 2 diabetes mellitus with diabetic peripheral angiopathy with gangrene; M86.471 Chronic osteomyelitis with draining sinus, right ankle and foot; L97.514 Non-pressure chronic ulcer of other part of right foot with necrosis of bone; I87.2 Venous insufficiency (chronic) (peripheral)
CPT/HCPCS: 96365; J0696

== ENCOUNTER 2022-01-24 02:19 | Outpatient (RCR) | payer MEDICARE, OTHER, SELFPAY ==
[2021-12-25] MEDS: cefTRIAXone 1 GM/50 ML BAG IVPB (12:45)
[2021-12-25] MEDS: Normal Saline Flush 10 ML SYR IVP (12:58)
[2021-12-25 13:18] LABS: Abs Immature Grans 0.02 10^3/uL (0.0-0.06); Absolute Basophil Count 0.03 10^3/uL (0.0-0.2); Absolute Eosinophil Count 0.32 10^3/uL (0.0-0.7); Absolute Lymphocyte Count 2.33 10^3/uL (1.2-3.4); Absolute Monocyte Count 0.86 10^3/uL (0.1-0.8); Absolute Neutrophil Count 4.49 10^3/uL (1.2-6.7); Basophils % 0.4; HCT 35.5 % (40.0-50.0); HGB 10.8 g/dL (13.5-17.5); Immature Grans % 0.2; Lymphocytes % 28.9; MCH 25.2 pg (27.0-33.0); MCHC 30.4 % (32.0-36.0); MCV 83 fL (80-95); Monocytes % 10.7; Neutrophils % 55.8; Platelet Count 191 10^3/uL (130-400); RBC 4.29 10^6/uL (4.36-5.78); RDW 17.2 % (11.8-14.1); RDW-SD 52.1 fL; WBC 8.05 10^3/uL (4.4-10.8)
[2021-12-25 13:19] LABS: ESR 62 mm/hr (0-20)
[2021-12-25 13:37] LABS: ALT 23 U/L (16-63); AST 20 U/L (15-37); Albumin 3.1 g/dL (3.4-5.0); Alkaline Phosphatase 108 U/L (46-116); Anion Gap 4.2 mmol/L (3-11); BUN 20 mg/dL (7-18); Bilirubin, Total 0.3 mg/dL (0.2-1.0); C-Reactive Protein 1.84 mg/dL (0.0-0.3); CO2 28.8 mmol/L (21.0-32.0); CREATININE 1.1 mg/dL (0.70-1.30); Chloride 102 mmol/L (98-107); Glucose 153 mg/dL (74-106); Potassium 4.2 mmol/L (3.5-5.1); Sodium 135 mmol/L (136-145); Total Protein 7.4 g/dL (6.4-8.2)
[2021-12-26] MEDS: Normal Saline Flush 10 ML SYR IVP (12:50)
[2021-12-26] MEDS: cefTRIAXone 1 GM/50 ML BAG IVPB (12:50)
[2021-12-27] MEDS: Normal Saline Flush 10 ML SYR IVP (12:45)
[2021-12-27] MEDS: cefTRIAXone 1 GM/50 ML BAG IVPB (12:45)
[2021-12-28] MEDS: Normal Saline Flush 10 ML SYR IVP (12:41)
[2021-12-28] MEDS: cefTRIAXone 1 GM/50 ML BAG IVPB (12:41)
[2021-12-29] MEDS: cefTRIAXone 1 GM/50 ML BAG IVPB (12:50)
[2021-12-29] MEDS: Normal Saline Flush 10 ML SYR IVP (12:50)
[2021-12-30] MEDS: cefTRIAXone 1 GM/50 ML BAG IVPB (12:39)
[2021-12-30] MEDS: Normal Saline Flush 10 ML SYR IVP (12:40)
[2021-12-31] MEDS: cefTRIAXone 1 GM/50 ML BAG IVPB (12:45)
[2021-12-31] MEDS: Normal Saline Flush 10 ML SYR IVP (12:46)
[2022-01-01] MEDS: cefTRIAXone 1 GM/50 ML BAG IVPB (12:58)
[2022-01-01] MEDS: Normal Saline Flush 10 ML SYR IVP (12:58)
[2022-01-01 13:12] LABS: Abs Immature Grans 0.05 10^3/uL (0.0-0.06); Absolute Basophil Count 0.04 10^3/uL (0.0-0.2); Absolute Eosinophil Count 0.34 10^3/uL (0.0-0.7); Absolute Lymphocyte Count 2.96 10^3/uL (1.2-3.4); Absolute Monocyte Count 1.09 10^3/uL (0.1-0.8); Absolute Neutrophil Count 5.64 10^3/uL (1.2-6.7); Basophils % 0.4; Eosinophils % 3.4; HCT 36.1 % (40.0-50.0); HGB 11.3 g/dL (13.5-17.5); Immature Grans % 0.5; Lymphocytes % 29.2; MCH 25.6 pg (27.0-33.0); MCHC 31.3 % (32.0-36.0); MCV 82 fL (80-95); MPV 9.9 fL (8.0-11.0); Monocytes % 10.8; Neutrophils % 55.7; Platelet Count 242 10^3/uL (130-400); RBC 4.42 10^6/uL (4.36-5.78); RDW 16.7 % (11.8-14.1); RDW-SD 49.9 fL; WBC 10.12 10^3/uL (4.4-10.8)
[2022-01-01 13:15] LABS: ESR 63 mm/hr (0-20)
[2022-01-01 13:26] LABS: ALT 22 U/L (16-63); AST 18 U/L (15-37); Albumin 3.2 g/dL (3.4-5.0); Alkaline Phosphatase 110 U/L (46-116); BUN 25 mg/dL (7-18); Bilirubin, Total 0.3 mg/dL (0.2-1.0); C-Reactive Protein 1.96 mg/dL (0.0-0.3); CREATININE 1.3 mg/dL (0.70-1.30); Calcium 8.7 mg/dL (8.5-10.1); Chloride 103 mmol/L (98-107); Estimated GFR 53.53 (mL/min/1.73m2); Glucose 105 mg/dL (74-106); Potassium 3.7 mmol/L (3.5-5.1); Sodium 140 mmol/L (136-145); Total Protein 7.5 g/dL (6.4-8.2)
[2022-01-02] MEDS: cefTRIAXone 1 GM/50 ML BAG IVPB (12:42)
[2022-01-02] MEDS: Normal Saline Flush 10 ML SYR IVP (12:42)
[2022-01-03] MEDS: Normal Saline Flush 10 ML SYR IVP (12:45)
[2022-01-03] MEDS: cefTRIAXone 1 GM/50 ML BAG IVPB (12:45)
[2022-01-04] MEDS: cefTRIAXone 1 GM/50 ML BAG IVPB (12:43)
[2022-01-04] MEDS: Normal Saline Flush 10 ML SYR IVP (12:44)
[2022-01-05] MEDS: cefTRIAXone 1 GM/50 ML BAG IVPB (12:39)
[2022-01-05] MEDS: Normal Saline Flush 10 ML SYR IVP (12:39)
[2022-01-06] MEDS: cefTRIAXone 1 GM/50 ML BAG IVPB (12:48)
[2022-01-06] MEDS: Normal Saline Flush 10 ML SYR IVP (12:49)
[2022-01-07] MEDS: cefTRIAXone 1 GM/50 ML BAG IVPB (12:37)
[2022-01-07] MEDS: Normal Saline Flush 10 ML SYR IVP (12:37)
[2022-01-08] MEDS: cefTRIAXone 1 GM/50 ML BAG IVPB (12:44)
[2022-01-08] MEDS: Normal Saline Flush 10 ML SYR IVP (12:45)
[2022-01-08 13:06] LABS: Abs Immature Grans 0.05 10^3/uL (0.0-0.06); Absolute Basophil Count 0.06 10^3/uL (0.0-0.2); Absolute Eosinophil Count 0.32 10^3/uL (0.0-0.7); Absolute Lymphocyte Count 2.14 10^3/uL (1.2-3.4); Absolute Monocyte Count 0.92 10^3/uL (0.1-0.8); Absolute Neutrophil Count 5.76 10^3/uL (1.2-6.7); Basophils % 0.6; Eosinophils % 3.5; HGB 11.1 g/dL (13.5-17.5); Immature Grans % 0.5; Lymphocytes % 23.1; MCH 25.7 pg (27.0-33.0); MCHC 31.7 % (32.0-36.0); MCV 81 fL (80-95); MPV 9.9 fL (8.0-11.0); Monocytes % 9.9; Neutrophils % 62.4; Platelet Count 198 10^3/uL (130-400); RBC 4.32 10^6/uL (4.36-5.78); RDW 16.5 % (11.8-14.1); RDW-SD 49.2 fL; WBC 9.25 10^3/uL (4.4-10.8)
[2022-01-08 14:35] LABS: ESR 38 mm/hr (0-20)
[2022-01-08 14:44] LABS: ALT 24 U/L (16-63); AST 22 U/L (15-37); Albumin 3.1 g/dL (3.4-5.0); Alkaline Phosphatase 117 U/L (46-116); Anion Gap 6.2 mmol/L (3-11); BUN 27 mg/dL (7-18); Bilirubin, Total 0.3 mg/dL (0.2-1.0); C-Reactive Protein 1.83 mg/dL (0.0-0.3); CO2 30.8 mmol/L (21.0-32.0); CREATININE 1.2 mg/dL (0.70-1.30); Calcium 8.5 mg/dL (8.5-10.1); Chloride 105 mmol/L (98-107); Estimated GFR 58.71 (mL/min/1.73m2); Glucose 119 mg/dL (74-106); Potassium 4.4 mmol/L (3.5-5.1); Sodium 142 mmol/L (136-145); Total Protein 7.3 g/dL (6.4-8.2)
[2022-01-09] MEDS: Normal Saline Flush 10 ML SYR IVP (12:43)
[2022-01-09] MEDS: cefTRIAXone 1 GM/50 ML BAG IVPB (12:43)
[2022-01-10] MEDS: cefTRIAXone 1 GM/50 ML BAG IVPB (12:42)
[2022-01-10] MEDS: Normal Saline Flush 10 ML SYR IVP (12:43)
[2022-01-11] MEDS: Normal Saline Flush 10 ML SYR IVP (12:40)
[2022-01-11] MEDS: cefTRIAXone 1 GM/50 ML BAG IVPB (12:40)
[2022-01-12] MEDS: cefTRIAXone 1 GM/50 ML BAG IVPB (12:41)
[2022-01-12] MEDS: Normal Saline Flush 10 ML SYR IVP (12:45)
[2022-01-13] MEDS: cefTRIAXone 1 GM/50 ML BAG IVPB (12:44)
[2022-01-13] MEDS: Normal Saline Flush 10 ML SYR IVP (12:45)
[2022-01-14] MEDS: Normal Saline Flush 10 ML SYR IVP (12:35)
[2022-01-14] MEDS: cefTRIAXone 1 GM/50 ML BAG IVPB (12:35)
[2022-01-15] MEDS: cefTRIAXone 1 GM/50 ML BAG IVPB (12:51)
[2022-01-15] MEDS: Normal Saline Flush 10 ML SYR IVP (12:51)
[2022-01-15 13:11] LABS: Abs Immature Grans 0.02 10^3/uL (0.0-0.06); Absolute Basophil Count 0.03 10^3/uL (0.0-0.2); Absolute Lymphocyte Count 1.97 10^3/uL (1.2-3.4); Absolute Monocyte Count 0.81 10^3/uL (0.1-0.8); Absolute Neutrophil Count 4.74 10^3/uL (1.2-6.7); Basophils % 0.4; Eosinophils % 3.8; HCT 34.8 % (40.0-50.0); Immature Grans % 0.3; MCH 25.8 pg (27.0-33.0); MCHC 31.6 % (32.0-36.0); MCV 82 fL (80-95); Monocytes % 10.3; Neutrophils % 60.2; Platelet Count 174 10^3/uL (130-400); RBC 4.27 10^6/uL (4.36-5.78); RDW 16.3 % (11.8-14.1); RDW-SD 48.4 fL; WBC 7.87 10^3/uL (4.4-10.8)
[2022-01-15 13:15] LABS: ESR 41 mm/hr (0-20)
[2022-01-15 13:27] LABS: ALT 29 U/L (16-63); AST 23 U/L (15-37); Albumin 3.1 g/dL (3.4-5.0); Alkaline Phosphatase 104 U/L (46-116); Anion Gap 7.9 mmol/L (3-11); BUN 25 mg/dL (7-18); Bilirubin, Total 0.4 mg/dL (0.2-1.0); C-Reactive Protein 1.41 mg/dL (0.0-0.3); CO2 29.1 mmol/L (21.0-32.0); CREATININE 1.3 mg/dL (0.70-1.30); Calcium 8.4 mg/dL (8.5-10.1); Chloride 105 mmol/L (98-107); Estimated GFR 53.53 (mL/min/1.73m2); Glucose 170 mg/dL (74-106); Potassium 4.4 mmol/L (3.5-5.1); Sodium 142 mmol/L (136-145); Total Protein 7.1 g/dL (6.4-8.2)
[2022-01-16] MEDS: Normal Saline Flush 10 ML SYR IVP (12:38)
[2022-01-16] MEDS: cefTRIAXone 1 GM/50 ML BAG IVPB (12:38)
[2022-01-17] MEDS: cefTRIAXone 1 GM/50 ML BAG IVPB (12:47)
[2022-01-17] MEDS: Normal Saline Flush 10 ML SYR IVP (13:25)
[2022-01-18] MEDS: cefTRIAXone 1 GM/50 ML BAG IVPB (12:43)
[2022-01-18] MEDS: Normal Saline Flush 10 ML SYR IVP (12:43)
[2022-01-19] MEDS: cefTRIAXone 1 GM/50 ML BAG IVPB (12:43)
[2022-01-20] MEDS: Normal Saline Flush 10 ML SYR IVP (12:30)
[2022-01-20] MEDS: cefTRIAXone 1 GM/50 ML BAG IVPB (12:30)
[2022-01-21] MEDS: cefTRIAXone 1 GM/50 ML BAG IVPB (12:37)
[2022-01-21] MEDS: Normal Saline Flush 10 ML SYR IVP (12:37)
[2022-01-22] MEDS: Normal Saline Flush 10 ML SYR IVP (12:45)
[2022-01-22] MEDS: cefTRIAXone 1 GM/50 ML BAG IVPB (12:45)
[2022-01-22 13:06] LABS: Abs Immature Grans 0.05 10^3/uL (0.0-0.06); Absolute Basophil Count 0.04 10^3/uL (0.0-0.2); Absolute Eosinophil Count 0.32 10^3/uL (0.0-0.7); Absolute Lymphocyte Count 1.75 10^3/uL (1.2-3.4); Absolute Monocyte Count 0.98 10^3/uL (0.1-0.8); Basophils % 0.4; Eosinophils % 2.9; HCT 35.7 % (40.0-50.0); HGB 11.4 g/dL (13.5-17.5); Immature Grans % 0.5; Lymphocytes % 15.9; MCH 25.6 pg (27.0-33.0); MCHC 31.9 % (32.0-36.0); MCV 80 fL (80-95); Monocytes % 8.9; Neutrophils % 71.4; Platelet Count 180 10^3/uL (130-400); RBC 4.45 10^6/uL (4.36-5.78); RDW 16.4 % (11.8-14.1); RDW-SD 47.5 fL; WBC 11.01 10^3/uL (4.4-10.8)
[2022-01-22 13:08] LABS: Absolute Neutrophil Count 7.86 10^3/uL (1.2-6.7); ESR 41 mm/hr (0-20)
[2022-01-22 13:20] LABS: ALT 29 U/L (16-63); AST 24 U/L (15-37); Albumin 3.1 g/dL (3.4-5.0); Alkaline Phosphatase 114 U/L (46-116); Anion Gap 8.2 mmol/L (3-11); BUN 32 mg/dL (7-18); Bilirubin, Total 0.3 mg/dL (0.2-1.0); C-Reactive Protein 1.72 mg/dL (0.0-0.3); CO2 28.8 mmol/L (21.0-32.0); CREATININE 1.4 mg/dL (0.70-1.30); Calcium 8.4 mg/dL (8.5-10.1); Chloride 104 mmol/L (98-107); Estimated GFR 51.77 (mL/min/1.73m2); Glucose 177 mg/dL (74-106); Potassium 4.3 mmol/L (3.5-5.1); Sodium 141 mmol/L (136-145); Total Protein 7.1 g/dL (6.4-8.2)
[2022-01-23] MEDS: cefTRIAXone 1 GM/50 ML BAG IVPB (12:38)
[2022-01-23] MEDS: Normal Saline Flush 10 ML SYR IVP (12:41)
[2022-01-24] MEDS: Normal Saline Flush 10 ML SYR IVP (12:40)
[2022-01-24] MEDS: cefTRIAXone 1 GM/50 ML BAG IVPB (12:40)
== END 2022-01-24 23:59 | disposition home or self-care (01) ==
LOC: INF 02:19
PROVIDERS: Podiatrist Foot & Ankle Surgery; PCP Internal Medicine; Visit Provider Family Medicine
DX: M86.471 Chronic osteomyelitis with draining sinus, right ankle and foot (principal); E11.621 Type 2 diabetes mellitus with foot ulcer; E11.42 Type 2 diabetes mellitus with diabetic polyneuropathy; E11.52 Type 2 diabetes mellitus with diabetic peripheral angiopathy with gangrene; L97.514 Non-pressure chronic ulcer of other part of right foot with necrosis of bone; L97.922 Non-pressure chronic ulcer of unspecified part of left lower leg with fat layer exposed; I87.2 Venous insufficiency (chronic) (peripheral)
CPT/HCPCS: 36592; 80053; 85652; 96365; 85025; 86140; J0696

== ENCOUNTER 2022-02-01 03:56 | Outpatient (CLI) | payer MEDICARE, OTHER, SELFPAY ==
--- NOTE | 2022-02-01 13:00 | NS.NUTBLAN_ITS ---
Pieter and his attend diabetes self management education. Provider would like him to get a CGM. 6'4 255 lbs BMI: 31 PMH: Dm2, osteomylitis (last IV abx infusion tomorrow)-healing well, HTN, obesity DM meds: lantus 30 u BID, humolog 25 units before breakfast. No short acting insulin at lunch and dinner, .75 mg Trulicity q week Blood sugar patterns: Pieter brings in a log book of meals and blood sugar readings. He checks his blood sugars before each meal. Fasting sugars range from 128-160 mg/dl Before Lunch range typically 150-180mg/dl - however have had 4-5 hypoglycemic readings (48, 54, 45, 61) and some hyperglycemic events (highest 270 mg/dl) in last couple of weeks. Meal Plan: Breakfast: 2 toast, 2 eggs and coffee/ sometimes corn flakes and whole milk. Lunch: sandwich, Dinner: balanced meal. Also takes Premier Protein shake daily . A1C: 6.7% most recent. Pieter reports having been on 2 weeks IV abx and has noticed that his blood sugars are more variable as expected. Overall, blood sugars well controlled however low A1C and hypoglycemic events of concern. Before lunch hypoglcyemic readings most likely due to excessive short acting insulin at breakfast. Pieter and report that he does not notice his hypoglycemia- notices as he will stare off into space. A continuous glucose monitor would be beneficial as has hypoglycemia unawareness. Is eligible for a CGM with Medicare as thats insulin 4-5 times daily. Recommend following: Continue lantus 35 units AM and HS, continue Trulicity .75 mg q week Reduce Humalog to 10 units at breakfast, take 7 units humalog at lunch and dinner if reading > 200 mg/dl. Wendi 2 Continuous Glucose monitor with reader. Follow up with SHELBIE Hardy, [facility]
== END 2022-02-01 03:57 | disposition home or self-care (01) ==
LOC: DS 03:56
PROVIDERS: PCP Internal Medicine; Visit Provider Dietitian, Registered
DX: Z79.4 Long term (current) use of insulin; Z71.3 Dietary counseling and surveillance; E11.649 Type 2 diabetes mellitus with hypoglycemia without coma
CPT/HCPCS: 96365; 97802; J0696

== ENCOUNTER 2022-02-15 03:44 | Outpatient (RCR) | payer MEDICARE, OTHER, SELFPAY ==
[2022-01-25] MEDS: Normal Saline Flush 10 ML SYR IVP (12:58)
[2022-01-26] MEDS: Normal Saline Flush 10 ML SYR IVP (12:47)
[2022-01-26] MEDS: cefTRIAXone 1 GM/50 ML BAG IVPB (12:47)
[2022-01-27] MEDS: cefTRIAXone 1 GM/50 ML BAG IVPB (12:51)
[2022-01-27] MEDS: Normal Saline Flush 10 ML SYR IVP (12:52)
[2022-01-28] MEDS: cefTRIAXone 1 GM/50 ML BAG IVPB (12:41)
[2022-01-28] MEDS: Normal Saline Flush 10 ML SYR IVP (12:41)
[2022-01-29] MEDS: Normal Saline Flush 10 ML SYR IVP (12:39)
[2022-01-29] MEDS: cefTRIAXone 1 GM/50 ML BAG IVPB (12:39)
[2022-01-29 12:56] LABS: Abs Immature Grans 0.03 10^3/uL (0.0-0.06); Absolute Basophil Count 0.06 10^3/uL (0.0-0.2); Absolute Eosinophil Count 0.42 10^3/uL (0.0-0.7); Absolute Lymphocyte Count 2.46 10^3/uL (1.2-3.4); Absolute Monocyte Count 0.87 10^3/uL (0.1-0.8); Absolute Neutrophil Count 5.18 10^3/uL (1.2-6.7); Basophils % 0.7; Eosinophils % 4.7; HCT 38.1 % (40.0-50.0); Immature Grans % 0.3; Lymphocytes % 27.3; MCH 25.3 pg (27.0-33.0); MCHC 31.5 % (32.0-36.0); MCV 80 fL (80-95); MPV 9.7 fL (8.0-11.0); Monocytes % 9.6; Neutrophils % 57.4; Platelet Count 182 10^3/uL (130-400); RBC 4.75 10^6/uL (4.36-5.78); RDW 16.1 % (11.8-14.1); RDW-SD 46.7 fL; WBC 9.02 10^3/uL (4.4-10.8)
[2022-01-29 12:57] LABS: ESR 44 mm/hr (0-20)
[2022-01-29 13:10] LABS: ALT 28 U/L (16-63); AST 24 U/L (15-37); Albumin 3.4 g/dL (3.4-5.0); Alkaline Phosphatase 124 U/L (46-116); Anion Gap 5.4 mmol/L (3-11); BUN 24 mg/dL (7-18); Bilirubin, Total 0.4 mg/dL (0.2-1.0); C-Reactive Protein 1.47 mg/dL (0.0-0.3); CO2 31.6 mmol/L (21.0-32.0); CREATININE 1.3 mg/dL (0.70-1.30); Calcium 8.8 mg/dL (8.5-10.1); Chloride 104 mmol/L (98-107); Estimated GFR 56.23 (mL/min/1.73m2); Glucose 92 mg/dL (74-106); Sodium 141 mmol/L (136-145); Total Protein 7.7 g/dL (6.4-8.2)
[2022-01-30] MEDS: Normal Saline Flush 10 ML SYR IVP (12:43)
[2022-01-30] MEDS: cefTRIAXone 1 GM/50 ML BAG IVPB (12:43)
[2022-01-31] MEDS: cefTRIAXone 1 GM/50 ML BAG IVPB (12:39)
[2022-01-31] MEDS: Normal Saline Flush 10 ML SYR IVP (12:41)
[2022-02-01] MEDS: cefTRIAXone 1 GM/50 ML BAG IVPB (12:38)
[2022-02-01] MEDS: Normal Saline Flush 10 ML SYR IVP (12:46)
[2022-02-02] MEDS: cefTRIAXone 1 GM/50 ML BAG IVPB (12:39)
[2022-02-02] MEDS: Normal Saline Flush 10 ML SYR IVP (12:42)
[2022-02-05] MEDS: Normal Saline Flush 10 ML SYR IVP (12:57)
[2022-02-05 13:00] LABS: Abs Immature Grans 0.05 10^3/uL (0.0-0.06); Absolute Basophil Count 0.04 10^3/uL (0.0-0.2); Absolute Eosinophil Count 0.29 10^3/uL (0.0-0.7); Absolute Lymphocyte Count 2.29 10^3/uL (1.2-3.4); Absolute Monocyte Count 0.86 10^3/uL (0.1-0.8); Absolute Neutrophil Count 5.62 10^3/uL (1.2-6.7); Basophils % 0.4; Eosinophils % 3.2; HCT 38.4 % (40.0-50.0); HGB 12.1 g/dL (13.5-17.5); Immature Grans % 0.5; MCH 25.3 pg (27.0-33.0); MCHC 31.5 % (32.0-36.0); MCV 80 fL (80-95); MPV 10.2 fL (8.0-11.0); Monocytes % 9.4; Neutrophils % 61.5; Platelet Count 177 10^3/uL (130-400); RBC 4.79 10^6/uL (4.36-5.78); RDW 16.1 % (11.8-14.1); RDW-SD 47.2 fL; WBC 9.15 10^3/uL (4.4-10.8)
[2022-02-05 13:01] LABS: ESR 40 mm/hr (0-20)
[2022-02-05 13:22] LABS: ALT 32 U/L (16-63); AST 27 U/L (15-37); Albumin 3.3 g/dL (3.4-5.0); Alkaline Phosphatase 124 U/L (46-116); Anion Gap 7.8 mmol/L (3-11); BUN 31 mg/dL (7-18); Bilirubin, Total 0.4 mg/dL (0.2-1.0); CO2 29.2 mmol/L (21.0-32.0); CREATININE 1.4 mg/dL (0.70-1.30); Calcium 8.9 mg/dL (8.5-10.1); Chloride 103 mmol/L (98-107); Estimated GFR 51.45 (mL/min/1.73m2); Glucose 175 mg/dL (74-106); Potassium 4.3 mmol/L (3.5-5.1); Sodium 140 mmol/L (136-145); Total Protein 7.5 g/dL (6.4-8.2)
[2022-02-12 13:15] LABS: Abs Immature Grans 0.04 10^3/uL (0.0-0.06); Absolute Basophil Count 0.05 10^3/uL (0.0-0.2); Absolute Eosinophil Count 0.35 10^3/uL (0.0-0.7); Absolute Lymphocyte Count 2.62 10^3/uL (1.2-3.4); Absolute Monocyte Count 0.97 10^3/uL (0.1-0.8); Absolute Neutrophil Count 5.79 10^3/uL (1.2-6.7); Basophils % 0.5; Eosinophils % 3.6; HCT 40.1 % (40.0-50.0); HGB 12.5 g/dL (13.5-17.5); Immature Grans % 0.4; Lymphocytes % 26.7; MCH 25.1 pg (27.0-33.0); MCHC 31.2 % (32.0-36.0); MCV 81 fL (80-95); Monocytes % 9.9; Neutrophils % 58.9; Platelet Count 198 10^3/uL (130-400); RBC 4.98 10^6/uL (4.36-5.78); WBC 9.82 10^3/uL (4.4-10.8)
[2022-02-12 13:25] LABS: ESR 42 mm/hr (0-20)
[2022-02-12 13:36] LABS: ALT 28 U/L (16-63); AST 19 U/L (15-37); Albumin 3.3 g/dL (3.4-5.0); Alkaline Phosphatase 130 U/L (46-116); Anion Gap 9.5 mmol/L (3-11); BUN 34 mg/dL (7-18); Bilirubin, Total 0.4 mg/dL (0.2-1.0); C-Reactive Protein 1.64 mg/dL (0.0-0.3); CO2 26.5 mmol/L (21.0-32.0); CREATININE 1.3 mg/dL (0.70-1.30); Calcium 8.4 mg/dL (8.5-10.1); Chloride 105 mmol/L (98-107); Estimated GFR 56.23 (mL/min/1.73m2); Glucose 193 mg/dL (74-106); Potassium 3.9 mmol/L (3.5-5.1); Sodium 141 mmol/L (136-145); Total Protein 7.4 g/dL (6.4-8.2)
[2022-02-15] MEDS: Bacitracin 1 PACKET (09:30)
== END 2022-02-23 23:59 | disposition home or self-care (01) ==
LOC: INF 03:44
PROVIDERS: Podiatrist Foot & Ankle Surgery; PCP Internal Medicine; Visit Provider Family Medicine
DX: M86.471 Chronic osteomyelitis with draining sinus, right ankle and foot (principal); Z45.2 Encounter for adjustment and management of vascular access device
CPT/HCPCS: 36592; 80053; 85652; 96365; 85025; 86140; J0696

== ENCOUNTER 2022-03-05 19:06 | Outpatient (REF) | payer MEDICARE, OTHER, SELFPAY ==
[2022-03-05 19:35] LABS: Abs Immature Grans 0.03 10^3/uL (0.0-0.06); Absolute Basophil Count 0.04 10^3/uL (0.0-0.2); Absolute Eosinophil Count 0.27 10^3/uL (0.0-0.7); Absolute Lymphocyte Count 1.96 10^3/uL (1.2-3.4); Absolute Monocyte Count 0.83 10^3/uL (0.1-0.8); Absolute Neutrophil Count 3.99 10^3/uL (1.2-6.7); Basophils % 0.6; Eosinophils % 3.8; HCT 36.8 % (40.0-50.0); HGB 11.5 g/dL (13.5-17.5); Immature Grans % 0.4; Lymphocytes % 27.5; MCH 25.4 pg (27.0-33.0); MCHC 31.3 % (32.0-36.0); MCV 81 fL (80-95); MPV 10.8 fL (8.0-11.0); Monocytes % 11.7; Platelet Count 164 10^3/uL (130-400); RBC 4.53 10^6/uL (4.36-5.78); RDW 15.9 % (11.8-14.1); RDW-SD 46.9 fL; WBC 7.12 10^3/uL (4.4-10.8)
[2022-03-05 19:47] LABS: ESR 25 mm/hr (0-20)
[2022-03-05 20:28] LABS: ALT 21 U/L (16-63); AST 20 U/L (15-37); Albumin 3.6 g/dL (3.4-5.0); Alkaline Phosphatase 121 U/L (46-116); Anion Gap 6.1 mmol/L (3-11); BUN 38 mg/dL (7-18); Bilirubin, Total 0.3 mg/dL (0.2-1.0); CO2 30.9 mmol/L (21.0-32.0); CREATININE 1.4 mg/dL (0.70-1.30); Calcium 8.7 mg/dL (8.5-10.1); Chloride 103 mmol/L (98-107); Estimated GFR 51.45 (mL/min/1.73m2); Glucose 147 mg/dL (74-106); Potassium 4.1 mmol/L (3.5-5.1); Sodium 140 mmol/L (136-145)
== END 2022-03-05 19:07 | disposition home or self-care (01) ==
LOC: LBN 19:06
PROVIDERS: PCP Internal Medicine; Visit Provider Podiatrist Foot & Ankle Surgery
DX: L89.610 Pressure ulcer of right heel, unstageable (principal); L97.812 Non-pressure chronic ulcer of other part of right lower leg with fat layer exposed; E11.621 Type 2 diabetes mellitus with foot ulcer; Z79.4 Long term (current) use of insulin
CPT/HCPCS: 80053; 85652; 85025; 86140

== ENCOUNTER 2022-10-03 11:22 | Outpatient (REF) | payer MEDICARE, OTHER, SELFPAY ==
[2022-10-03 14:04] LABS: HGB 13.6 g/dL (13.5-17.5); MCHC 32.4 % (32.0-36.0); MCV 84 fL (80-95); MPV 10.9 fL (8.0-11.0); Platelet Count 157 10^3/uL (130-400); RBC 5.03 10^6/uL (4.36-5.78); RDW 14.6 % (11.8-14.1); WBC 7.95 10^3/uL (4.4-10.8)
[2022-10-03 14:46] LABS: ALT 25 U/L (16-63); AST 19 U/L (15-37); Albumin 3.9 g/dL (3.4-5.0); Alkaline Phosphatase 148 U/L (46-116); Anion Gap 8.7 mmol/L (3-11); BUN 28 mg/dL (7-18); Bilirubin, Total 0.6 mg/dL (0.2-1.0); CO2 30.3 mmol/L (21.0-32.0); CREATININE 1.4 mg/dL (0.70-1.30); Calcium 8.9 mg/dL (8.5-10.1); Chloride 103 mmol/L (98-107); Estimated GFR 51.45 (mL/min/1.73m2); Glucose 136 mg/dL (74-106); Potassium 4.6 mmol/L (3.5-5.1); Sodium 142 mmol/L (136-145); Total Protein 7.2 g/dL (6.4-8.2)
== END 2022-10-03 11:23 | disposition home or self-care (01) ==
LOC: NCHCN 11:22
PROVIDERS: PCP Internal Medicine; Visit Provider Family Medicine
DX: I10 Essential (primary) hypertension (principal)
CPT/HCPCS: 80053; 85027

== ENCOUNTER 2022-12-04 10:36 | Outpatient (REF) | payer MEDICARE, OTHER, SELFPAY ==
[2022-12-04 15:08] LABS: Hemoglobin A1C 7.2 % (<5.7)
== END 2022-12-04 10:37 | disposition home or self-care (01) ==
LOC: NCHCN 10:36
PROVIDERS: PCP Internal Medicine; Visit Provider Family Medicine
DX: E03.9 Hypothyroidism, unspecified (principal); E11.65 Type 2 diabetes mellitus with hyperglycemia
CPT/HCPCS: 83036; 84443

== ENCOUNTER 2023-03-26 16:17 | Outpatient (REF) | payer MEDICARE, OTHER, SELFPAY ==
[2023-03-26 17:24] LABS: Anion Gap 9.2 mmol/L (3-11); BUN 25 mg/dL (7-18); CO2 27.8 mmol/L (21.0-32.0); Calcium 9.1 mg/dL (8.5-10.1); Chloride 102 mmol/L (98-107); Estimated GFR 33.32 (mL/min/1.73m2); Glucose 256 mg/dL (74-106); Potassium 4.9 mmol/L (3.5-5.1); Sodium 139 mmol/L (136-145)
== END 2023-03-26 16:18 | disposition home or self-care (01) ==
LOC: NCHCN 16:17
PROVIDERS: PCP Internal Medicine; Visit Provider Family Medicine
DX: E11.65 Type 2 diabetes mellitus with hyperglycemia (principal)
CPT/HCPCS: 80048

== ENCOUNTER 2023-06-27 17:35 | Outpatient (REF) | payer MEDICARE, OTHER, SELFPAY ==
[2023-06-27 15:27] LABS: Hemoglobin A1C 7.7 % (<5.7)
[2023-06-27 15:28] LABS: Anion Gap 12.3 mmol/L (3-11); BUN 24 mg/dL (7-18); CO2 23.7 mmol/L (21.0-32.0); CREATININE 1.8 mg/dL (0.70-1.30); Calcium 9.3 mg/dL (8.5-10.1); Chloride 100 mmol/L (98-107); Estimated GFR 37.82 (mL/min/1.73m2); Glucose 258 mg/dL (74-106); Potassium 4.5 mmol/L (3.5-5.1); Sodium 136 mmol/L (136-145)
== END 2023-06-27 17:36 | disposition home or self-care (01) ==
LOC: NCHCN 17:35
PROVIDERS: PCP Internal Medicine; Visit Provider Family Medicine
DX: E11.65 Type 2 diabetes mellitus with hyperglycemia (principal); N18.30 Chronic kidney disease, stage 3 unspecified
CPT/HCPCS: 80048; 83036

== ENCOUNTER 2024-01-02 22:09 | Outpatient (REF) | payer MEDICARE, OTHER, SELFPAY ==
[2024-01-02 15:19] LABS: COMMENT (LAB VIEW ONLY) 21.29 mg/dL
[2024-01-02 19:17] LABS: Microalb ug/mg Crea 27.7 ug/mg Cr
== END 2024-01-02 22:10 | disposition home or self-care (01) ==
LOC: NCHCN 22:09
PROVIDERS: PCP Internal Medicine; Visit Provider Family Medicine
DX: I10 Essential (primary) hypertension (principal)
CPT/HCPCS: 82043; 82570

== ENCOUNTER 2025-01-05 17:04 | Outpatient (REF) | payer MEDICARE, OTHER, SELFPAY ==
[2025-01-05 16:44] LABS: HCT 38.6 % (40.0-50.0); HGB 12.4 g/dL (13.5-17.5); MCH 27.7 pg (27.0-33.0); MCHC 32.1 % (32.0-36.0); MCV 86 fL (80-95); MPV 10.6 fL (8.0-11.0); Platelet Count 174 10^3/uL (130-400); RBC 4.47 10^6/uL (4.36-5.78); RDW 14.9 % (11.8-14.1); RDW-SD 46.8 fL; WBC 7.06 10^3/uL (4.4-10.8)
[2025-01-05 17:41] LABS: ALT 20 U/L (16-63); AST 19 U/L (15-37); Albumin 3.9 g/dL (3.4-5.0); Alkaline Phosphatase 125 U/L (46-116); Anion Gap 9.8 mmol/L (3-11); BUN 30 mg/dL (7-18); Bilirubin, Total 0.8 mg/dL (0.2-1.0); CO2 27.2 mmol/L (21.0-32.0); Calcium 9.1 mg/dL (8.5-10.1); Chloride 103 mmol/L (98-107); Estimated GFR 43.29 (mL/min/1.73m2); Glucose 146 mg/dL (74-106); LDL CHOLESTEROL 50 mg/dL (<100); Potassium 4.6 mmol/L (3.5-5.1); Sodium 140 mmol/L (136-145); Total Protein 7.4 g/dL (6.4-8.2)
[2025-01-07 17:06] LABS: COMMENT (LAB VIEW ONLY) 38.62 mg/dL; Microalb ug/mg Crea 17.9 ug/mg Cr
== END 2025-01-05 17:05 | disposition home or self-care (01) ==
LOC: NCHCN 17:04
PROVIDERS: PCP Internal Medicine; Visit Provider Family Medicine
DX: E11.65 Type 2 diabetes mellitus with hyperglycemia (principal); E78.5 Hyperlipidemia, unspecified
CPT/HCPCS: 80053; 83721; 85027; 82043; 82570